=== PATIENT | female | born 1945 | race Caucasian/White ===

== ENCOUNTER 2021-10-24 07:12 | Day surgery (SDC) | payer OTHER ==
[~2021-10-24] VITALS: Ht 165.1 cm; Wt 83.5 kg
[~2021-10-24 07:12] MED LIST: AMLO-483 PO; ASPI1TAB20 PO; CLOP75TA28 PO; DIAZ2TAB PO; DONE5TAB80 PO; FEXO-42 PO; FURO1TAB31 PO; GABA300C10 PO; LATA0.0019 EACHEYE; LEVO50TA7 PO; LEVO75TA6 PO; METO25TA93 PO; MULT1TAB28 PO; NIAC500T71 PO; OMEG100078 PO; PANT40T PO; POT20T PO; ROSU1TAB14 PO
[2021-10-24] MEDS ORDERED: diphenhdrAMINE HCL 50 MG/1 ML VL IV ONE (08:15)
[2021-10-24] MEDS ORDERED: LIDOCAINE VISCOUS 2% 15ML UD MT ONE (08:15)
[2021-10-24] MEDS ORDERED: MIDAZOLAM HCL 2MG/2ML 2ml VIAL (1mg/ml) IV ONE (08:15)
[2021-10-24] MEDS ORDERED: fentaNYL CITRATE 100 MCG/2 ML VL IV ONE (08:15)
[2021-10-24] MEDS ORDERED: MIDAZOLAM HCL 2MG/2ML 2ml VIAL (1mg/ml) ONE (08:32)
[2021-10-24] MEDS ORDERED: LIDOCAINE VISCOUS 2% 15ML UD ONE (08:32)
[2021-10-24] MEDS ORDERED: fentaNYL CITRATE 100 MCG/2 ML VL ONE (08:32)
[2021-10-24] MEDS ORDERED: hydrALAZINE HCL 20 MG/ML VL IV ONE (09:00)
[2021-10-24] MEDS ORDERED: ACETAMINOPHEN 500 MG TAB PO PRN (09:15)
[2021-10-24 09:42] VITALS: BP 212/87
== END 2021-10-24 10:50 | disposition home or self-care (01) ==
LOC: CATH 07:12
PROVIDERS: ATTEND Internal Medicine
DX: I08.3 Combined rheumatic disorders of mitral, aortic and tricuspid valves (principal); I25.10 Atherosclerotic heart disease of native coronary artery without angina pectoris; N18.9 Chronic kidney disease, unspecified; I73.9 Peripheral vascular disease, unspecified; F03.90 Unspecified dementia, unspecified severity, without behavioral disturbance, psychotic disturbance, mood disturbance, and anxiety; I50.9 Heart failure, unspecified; J44.9 Chronic obstructive pulmonary disease, unspecified; F41.9 Anxiety disorder, unspecified; F32.A Depression, unspecified; G47.30 Sleep apnea, unspecified; Z82.49 Family history of ischemic heart disease and other diseases of the circulatory system; Z87.891 Personal history of nicotine dependence; Z80.8 Family history of malignant neoplasm of other organs or systems; Z20.822 Contact with and (suspected) exposure to COVID-19
CPT/HCPCS: 93312; J0360; J2250; J3010; U0003; 99152

== ENCOUNTER 2021-10-27 11:16 | Day surgery (SDC) | payer OTHER ==
[2021-10-27] VITALS (9 sets, daily range): BP systolic 86–143; BP diastolic 39–99
[2021-10-27] MEDS ORDERED: VERAPAMIL 2.5MG/ML INJ 2ML VIAL IV ONE (13:22)
[2021-10-27] MEDS ORDERED: fentaNYL CITRATE 100 MCG/2 ML VL ONE (13:22)
[2021-10-27] MEDS ORDERED: ANGIOMAX 250 MG VIAL IV ONE (13:22)
[2021-10-27] MEDS ORDERED: HEPARIN SODIUM (PORCINE) 5000 UNITS/ML 1ML VIAL ONE (13:22)
[2021-10-27] MEDS ORDERED: IODIXANOL 320MG/ML 100ML BTL IV ONE (13:23)
[2021-10-27] MEDS ORDERED: LIDOCAINE 2%HCL (LOCAL ANESTH.) INJ 20ML MDV ONE (13:23)
[2021-10-27] MEDS ORDERED: MIDAZOLAM HCL 2MG/2ML 2ml VIAL (1mg/ml) ONE (13:23)
[2021-10-27] MEDS ORDERED: SODIUM CHL 0.9% 0 ML ONE (13:23)
[2021-10-27] MEDS ORDERED: hydrALAZINE HCL 20 MG/ML VL ONE (13:50)
[2021-10-27] MEDS ORDERED: HYDROmorphone HCL 2 MG/ML VL/or syr ONE (14:05)
[2021-10-27] MEDS ORDERED: HYDROmorphone HCL 2 MG/ML VL/or syr IV ONE (14:15)
[2021-10-27] MEDS ORDERED: diphenhdrAMINE HCL 50 MG/1 ML VL ONE (14:30)
[2021-10-27] MEDS ORDERED: diphenhdrAMINE HCL 50 MG/1 ML VL IV ONE (14:36)
== END 2021-10-27 16:23 | disposition home or self-care (01) ==
LOC: CATH 11:16
PROVIDERS: ATTEND Internal Medicine
DX: R94.39 Abnormal result of other cardiovascular function study (principal); I25.118 Atherosclerotic heart disease of native coronary artery with other forms of angina pectoris; I35.0 Nonrheumatic aortic (valve) stenosis; I11.0 Hypertensive heart disease with heart failure; I50.9 Heart failure, unspecified; E78.5 Hyperlipidemia, unspecified; J44.9 Chronic obstructive pulmonary disease, unspecified; F41.9 Anxiety disorder, unspecified; F32.A Depression, unspecified; Z82.49 Family history of ischemic heart disease and other diseases of the circulatory system; Z87.891 Personal history of nicotine dependence; Z95.5 Presence of coronary angioplasty implant and graft; Z20.822 Contact with and (suspected) exposure to COVID-19
CPT/HCPCS: 93455; C1769; C1894; J0360; J1170; J1200; J1644; J2250; J3010; Q9967; 93458

== ENCOUNTER 2022-02-05 14:38 | Emergency (ER) | payer OTHER ==
[~2022-02-05] VITALS: Ht 167.6 cm; Wt 63.6 kg
[2022-02-05] MEDS ORDERED: SODIUM CHLORIDE 0.9% 1,000 ML IVB ONE (15:15)
[2022-02-05 16:04] LABS: Basophils # (auto) 0 10 ^3/uL (0-0.2); Basophils % (auto) 0.3 % (0.0-2.0); Eosinophils # (auto) 0 10 ^3/uL (0-0.8); Eosinophils % (auto) 0.4 % (0.0-7.0)
[2022-02-05 16:11] LABS: Hematocrit 40.7 % (36.0-46.0); Hemoglobin 14.1 g/dL (12.2-16.2); Lymphocytes # (auto) 0.9 10 ^3/uL (0.4-5.4); Lymphocytes % (auto) 8.6 % (10.0-50.0); Mean Corpuscular Hemoglobin 32.3 pg (28.0-32.0); Mean Corpuscular Hgb Conc. 34.7 g/dL (32.0-36.0); Mean Corpuscular Volume 93.1 fL (80.0-100.0); Monocytes % (auto) 9.3 % (0.0-12.0); Neutrophils # (auto) 8.6 10 ^3/uL (1.6-8.6); Neutrophils % (auto) 81.4 % (37.0-80.0); Nucleated Red Blood Cells % 0.1 %; Red Blood Cells 4.38 10^6/uL (4.0-5.20); White Blood Cell 10.6 10^3/uL (4.4-10.8)
[2022-02-05 16:34] LABS: Albumin 3.2 g/dL (3.4-5.0); BUN/Creatinine Ratio 15.9; Calcium 9.3 mg/dL (8.5-10.1); Magnesium 1.9 mg/dL (1.6-2.6); Potassium 4.2 mmol/L (3.5-5.1)
[2022-02-05 16:36] LABS: Bilirubin, Total 0.7 mg/dL (0.2-1.0); Total Protein 6.8 g/dL (6.4-8.2)
[2022-02-05] MEDS ORDERED: metroNIDAZOLE 500MG/100ML 100 ML IV ONE (17:45)
[2022-02-05] MEDS ORDERED: BISM262C44 PO (17:54)
[2022-02-05] MEDS ORDERED: METR500T PO (17:54)
[2022-02-05 19:11] VITALS: BP 141/64
== END 2022-02-05 19:12 | disposition home or self-care (01) ==
LOC: EDBD 14:38 → ER 14:40
DX: K52.9 Noninfective gastroenteritis and colitis, unspecified (principal); K57.90 Diverticulosis of intestine, part unspecified, without perforation or abscess without bleeding; K42.9 Umbilical hernia without obstruction or gangrene; E11.22 Type 2 diabetes mellitus with diabetic chronic kidney disease; I13.0 Hypertensive heart and chronic kidney disease with heart failure and stage 1 through stage 4 chronic kidney disease, or unspecified chronic kidney disease; N18.9 Chronic kidney disease, unspecified; I50.89 Other heart failure; J44.9 Chronic obstructive pulmonary disease, unspecified; E78.5 Hyperlipidemia, unspecified; Z90.49 Acquired absence of other specified parts of digestive tract; Z87.891 Personal history of nicotine dependence
CPT/HCPCS: 36415; 71045; 74176; 80053; 83690; 83735; 85025; 93005; 96361; 96365; 99285; J3490; J7030

== ENCOUNTER 2022-03-15 08:54 | Inpatient (IN) | payer OTHER ==
[~2022-03-15] VITALS: Ht 167.6 cm; Wt 84.1 kg
[~2022-03-15 08:54] MED LIST changes: +BISM262C44 PO; +METR500T PO
[2022-03-15] MEDS ORDERED: SODIUM CHLORIDE 0.9% 1,000 ML IV ONE (09:30)
[2022-03-15 09:58] LABS: Basophils # (auto) 0.1 10 ^3/uL (0-0.2); Basophils % (auto) 1.3 % (0.0-2.0); Eosinophils # (auto) 0.2 10 ^3/uL (0-0.8); Eosinophils % (auto) 5.7 % (0.0-7.0); Hematocrit 40.3 % (36.0-46.0); Hemoglobin 13.3 g/dL (12.2-16.2); Lymphocytes # (auto) 1.4 10 ^3/uL (0.4-5.4); Lymphocytes % (auto) 31.5 % (10.0-50.0); Mean Corpuscular Hemoglobin 32.1 pg (28.0-32.0); Mean Corpuscular Volume 97.3 fL (80.0-100.0); Monocytes # (auto) 0.4 10 ^3/uL (0-1.3); Monocytes % (auto) 8.4 % (0.0-12.0); Neutrophils # (auto) 2.3 10 ^3/uL (1.6-8.6); Neutrophils % (auto) 53.1 % (37.0-80.0); Nucleated Red Blood Cells % 0.1 %; Red Blood Cells 4.14 10^6/uL (4.0-5.20); Red Cell Distribution Width 15.8 % (11.8-14.3); White Blood Cell 4.4 10^3/uL (4.4-10.8)
[2022-03-15 10:06] LABS: Albumin 3.3 g/dL (3.4-5.0); Calcium 9.5 mg/dL (8.5-10.1); Magnesium 1.9 mg/dL (1.6-2.6); Potassium 3.6 mmol/L (3.5-5.1)
[2022-03-15 10:09] LABS: BUN/Creatinine Ratio 11.2; Bilirubin, Total 0.7 mg/dL (0.2-1.0); INR 0.94 (0.9-1.15); Partial Thromboplastin Time 23.1 sec (24.6-33.4); Total Protein 7.2 g/dL (6.4-8.2)
[2022-03-16 02:05] LABS: BUN/Creatinine Ratio 12.7; Calcium 9.1 mg/dL (8.5-10.1)
[2022-03-16] MEDS ORDERED: HYDROcodone-ACET 5/325MG TAB PO ONE (02:15)
[2022-03-16] MEDS ORDERED: IOHEXOL 350 MG/ML 100ML IJ ONE (02:43)
[2022-03-16] MEDS ORDERED: NITROGLYCERIN 0.4 MG SL TAB SL PRN (03:45)
[2022-03-16] MEDS ORDERED: TEMAZEPAM 15 MG CAP PO PRN (03:45)
[2022-03-16] MEDS ORDERED: ONDANSETRON HCL 4 MG/2 ML VIAL IV PRN (03:45)
[2022-03-16] MEDS ORDERED: DEXTROSE (50%) 50ML SYRG IV PRN (03:45)
[2022-03-16] MEDS ORDERED: MORPHINE SULFATE INJ 2 MG/ml SYRG IV PRN (03:45)
[2022-03-16] MEDS: InsuLIN REG 1unit/0.01ml Soln (100units/ml) SC SCH ×4 (06:47→22:00)
[2022-03-16] MEDS: ACCU-CHEK COMFORT CURVE STRIP VI SCH ×4 (06:47→23:19)
[2022-03-16] MEDS: LEVOTHYROXINE SODIUM 25 MCG TAB PO SCH (06:51)
[2022-03-16] MEDS: ACETAMINOPHEN 325 MG TAB PO PRN ×2 (08:36→14:30)
[2022-03-16] MEDS ORDERED: METOPROLOL SUCCINATE XL 50 MG TAB PO SCH ×2 (10:00→12:15)
[2022-03-16] MEDS ORDERED: amLODIPine BESYLATE 5 MG TAB PO SCH (10:00)
[2022-03-16 10:22] VITALS: BP 146/42
[2022-03-16] MEDS: ASPirin 81 mg TAB PO SCH (10:51)
[2022-03-16] MEDS: FUROSEMIDE 40 MG TAB PO SCH (10:51)
[2022-03-16] MEDS: PANTOPRAZOLE 40 MG TAB PO SCH (10:52)
[2022-03-16] MEDS: CLOPIDOGREL BISULFATE 75 MG TAB PO SCH (10:52)
[2022-03-16] MEDS: ENOXAPARIN SOD 40 MG/0.4 ML SYRINGE SC SCH (10:53)
[2022-03-16] MEDS ORDERED: HYDROcodone-ACET 5/325MG TAB PO PRN (12:45)
[2022-03-16 12:54] VITALS: BP 146/42
[2022-03-16 13:55] LABS: Basophils # (auto) 0 10 ^3/uL (0-0.2); Basophils % (auto) 1.1 % (0.0-2.0); Eosinophils # (auto) 0.3 10 ^3/uL (0-0.8); Eosinophils % (auto) 5.6 % (0.0-7.0); Hematocrit 39.2 % (36.0-46.0); Lymphocytes # (auto) 1.2 10 ^3/uL (0.4-5.4); Lymphocytes % (auto) 26.6 % (10.0-50.0); Mean Corpuscular Hemoglobin 32.6 pg (28.0-32.0); Mean Corpuscular Hgb Conc. 33.1 g/dL (32.0-36.0); Mean Corpuscular Volume 98.4 fL (80.0-100.0); Monocytes # (auto) 0.4 10 ^3/uL (0-1.3); Neutrophils # (auto) 2.7 10 ^3/uL (1.6-8.6); Neutrophils % (auto) 57.7 % (37.0-80.0); Nucleated Red Blood Cells % 0.1 %; Red Blood Cells 3.99 10^6/uL (4.0-5.20); Red Cell Distribution Width 16.4 % (11.8-14.3); White Blood Cell 4.6 10^3/uL (4.4-10.8)
[2022-03-16] MEDS ORDERED: GLUC1CAP13 PO (15:13)
[2022-03-16] MEDS ORDERED: CILO100T PO (15:13)
[2022-03-16] MEDS ORDERED: CYA100I PO (15:13)
[2022-03-16] MEDS ORDERED: DICY20TA PO (15:13)
[2022-03-16] MEDS ORDERED: POLY33504 PO (15:13)
[2022-03-16] MEDS ORDERED: OMEG100062 PO (15:13)
[2022-03-16] MEDS ORDERED: FAMO-12 PO (15:13)
[2022-03-16] MEDS ORDERED: METR500T PO (15:13)
[2022-03-16] MEDS ORDERED: BIOT50007 PO (15:13)
[2022-03-16 16:00] VITALS: BP 159/42
[2022-03-16] MEDS: amLODIPine BESYLATE 5 MG TAB PO SCH (17:29)
[2022-03-16 17:55] LABS: Urine Bacteria NONE SEEN /hpf (None Seen); Urine Blood Negative /uL (Negative); Urine Specific Gravity 1.006 (1.001-1.035); Urine WBC <1 /hpf (0 - 5)
[2022-03-16 22:00] VITALS: BP 132/75
[2022-03-16] MEDS ORDERED: DONEPEZIL HYDROCHLORIDE 5 MG TAB PO SCH (22:00)
[2022-03-16] MEDS ORDERED: ATORVASTATIN 20 MG TAB PO SCH (22:00)
[2022-03-17] MEDS ORDERED: diphenhdrAMINE HCL 25 MG CAP PO ONE ×2 (02:00→11:30)
[2022-03-17 05:00] VITALS: BP 148/43
[2022-03-17] MEDS: LEVOTHYROXINE SODIUM 25 MCG TAB PO SCH (06:50)
[2022-03-17] MEDS: ACCU-CHEK COMFORT CURVE STRIP VI SCH ×3 (06:50→17:06)
[2022-03-17] MEDS: InsuLIN REG 1unit/0.01ml Soln (100units/ml) SC SCH ×3 (06:54→17:00)
[2022-03-17 06:58] LABS: Basophils # (auto) 0 10 ^3/uL (0-0.2); Basophils % (auto) 1.1 % (0.0-2.0); Eosinophils # (auto) 0.2 10 ^3/uL (0-0.8); Eosinophils % (auto) 5.1 % (0.0-7.0); Hematocrit 37.3 % (36.0-46.0); Hemoglobin 12.4 g/dL (12.2-16.2); Lymphocytes # (auto) 1.3 10 ^3/uL (0.4-5.4); Lymphocytes % (auto) 27.9 % (10.0-50.0); Mean Corpuscular Hemoglobin 32.4 pg (28.0-32.0); Mean Corpuscular Hgb Conc. 33.2 g/dL (32.0-36.0); Mean Corpuscular Volume 97.5 fL (80.0-100.0); Monocytes # (auto) 0.5 10 ^3/uL (0-1.3); Monocytes % (auto) 10.4 % (0.0-12.0); Neutrophils # (auto) 2.5 10 ^3/uL (1.6-8.6); Neutrophils % (auto) 55.5 % (37.0-80.0); Nucleated Red Blood Cells % 0.2 %; Red Blood Cells 3.82 10^6/uL (4.0-5.20); Red Cell Distribution Width 15.7 % (11.8-14.3); White Blood Cell 4.5 10^3/uL (4.4-10.8)
[2022-03-17 07:19] LABS: Anion Gap 7 (5-15); BUN/Creatinine Ratio 18.2; Blood Urea Nitrogen 16 mg/dL (7-18); Calcium 9.2 mg/dL (8.5-10.1); Carbon Dioxide 27 mmol/L (21-32); Chloride 109 mmol/L (98-107); GFR African American 81 mL/min; GFR Non-African American 67 mL/min; Glucose 100 mg/dL (74-106); Potassium 3.9 mmol/L (3.5-5.1); Sodium 143 mmol/L (136-145)
[2022-03-17 08:47] VITALS: BP 156/43
[2022-03-17] MEDS: ASPirin 81 mg TAB PO SCH (09:25)
[2022-03-17] MEDS: FUROSEMIDE 40 MG TAB PO SCH (09:25)
[2022-03-17] MEDS: CLOPIDOGREL BISULFATE 75 MG TAB PO SCH (09:25)
[2022-03-17] MEDS: PANTOPRAZOLE 40 MG TAB PO SCH (09:25)
[2022-03-17] MEDS: ENOXAPARIN SOD 40 MG/0.4 ML SYRINGE SC SCH (09:25)
[2022-03-17] MEDS: amLODIPine BESYLATE 5 MG TAB PO SCH (09:26)
[2022-03-17] MEDS ORDERED: GABAPENTIN 300 MG CAP PO ONE (11:30)
[2022-03-17 11:50] VITALS: BP 130/28
[2022-03-17 12:15] VITALS: BP 153/51
[2022-03-17 16:49] VITALS: BP 130/40
[2022-03-17] MEDS ORDERED: AML5T PO (17:26)
[2022-03-18] MEDS ORDERED: GABAPENTIN 300 MG CAP PO SCH (22:00)
== END 2022-03-17 19:20 | disposition home or self-care (01) | DRG 280 ==
LOC: ER 08:54 → EDBD 08:54 → TELE 03-16 03:51 → TELE-WESTW 03-16 10:19
PROVIDERS: ADMIT Nurse Practitioner; ATTEND Internal Medicine
DX: I21.4 Non-ST elevation (NSTEMI) myocardial infarction (principal); I50.33 Acute on chronic diastolic (congestive) heart failure; I13.0 Hypertensive heart and chronic kidney disease with heart failure and stage 1 through stage 4 chronic kidney disease, or unspecified chronic kidney disease; I25.110 Atherosclerotic heart disease of native coronary artery with unstable angina pectoris; E03.9 Hypothyroidism, unspecified; J44.9 Chronic obstructive pulmonary disease, unspecified; Z20.822 Contact with and (suspected) exposure to COVID-19; E11.22 Type 2 diabetes mellitus with diabetic chronic kidney disease; E66.9 Obesity, unspecified; E78.5 Hyperlipidemia, unspecified; Z82.49 Family history of ischemic heart disease and other diseases of the circulatory system; Z90.49 Acquired absence of other specified parts of digestive tract; Z68.29 Body mass index [BMI] 29.0-29.9, adult; Z87.891 Personal history of nicotine dependence; Z95.1 Presence of aortocoronary bypass graft; Z95.2 Presence of prosthetic heart valve; N18.31 Chronic kidney disease, stage 3a
CPT/HCPCS: 36415; 71046; 71275; 80048; 80053; 81001; 82962; 83735; 83880; 84443; 84484; 85025; 85379; 85610; 85730; 87426; 93005; 93306; 96360; G0378; J1815

== ENCOUNTER 2024-03-22 16:53 | Inpatient (IN) | payer OTHER ==
[~2024-03-22] VITALS: Ht 167.6 cm; Wt 78.2 kg
[~2024-03-22 16:53] MED LIST changes: +AML5T PO; -AMLO-483 PO; -BISM262C44 PO; -DIAZ2TAB PO; +GABA-1250 PO; -GABA300C10 PO; +GLUC1CAP13 PO; -LATA0.0019 EACHEYE; +LATA0.008 EACHEYE; -LEVO50TA7 PO; -METO25TA93 PO; -METR500T PO; +OMEG100062 PO; -OMEG100078 PO; +POLY33504 PO; -ROSU1TAB14 PO; +ROSU20TA56 PO
--- NOTE | 2024-03-22 17:21 | ED.PDOC ---
History of Present Illness HPI Comments 78F BIBA w/ prior Hx of Anemia, CHF, CAD, HTN, CABG and an Aortic Valve Replacement Sx which all may be associated to the c/c of a syncopal Episode. EMS report that the pt has had a total of 3 previous syncopal episodes in her life with the recent being 1 month ago. EMS state that the syncopal episode was wi tnessed by the daughter and that the daughter stated that the pt did not have a Sz. EMS note that the Prt BS on scene was 137. Pt states that all she remember is blacking out and hitting her right hip, right elbow and the right side of the head. When pt arrived the the ED she started mentioning of having Chest pressure. Pt is followed up by Ramses Roe for Carotid Aneurism. PMHx of COPD, DM, High Lipids, Thyroid and Glaucoma. SHx of Appendectomy and Cholecystectomy. Denies chills, fever, N/V/D, SOB, or other associated symptom's, modifiers, or recent injuries or sick contact at this time. Chief Complaint: Fall Injury Time Seen by MD: 16:55 Primary Care Provider: UNKNOWN Reviewed Notes: Nurses Notes, Stock Manager Notes, Medications, Allergies Allergies: Coded Allergies: NO KNOWN ALLERGIES (Unverified , 06/27/15) Home Meds Active Scripts Amlodipine Besylate (NORVASC TABLET) 5 Mg Tb, 5 MG PO DAILY, #30 TAB Prov:ANNA CASILLAS MD 03/17/22 Reported Medications Glucosamine Sulfate (Glucosamine) 1,000 Mg Cap, 1000 MG PO DAILY 03/16/22 [place]-3 Fatty Acids (Fish Oil) 1,000 Mg Cap, 1000 MG PO 03/16/22 Polyethylene Glycol (MIRALAX 17GM PWD) 17 Gm Pw, 17 GRAMS PO DAILY 03/16/22 Multiple Vitamins W/ Minerals (Centrum Adults) 1 Tab Tab, 1 TAB PO DAILY for SUPPLEMENT, TAB 10/21/21 Fexofenadine Hydrochloride (VIRAJ ALLERGY) 180 Mg Tab, 1 TAB PO DAILY for ALLERGIES, #30 TAB 2 Refills 10/21/21 Gabapentin (Gabapentin) 300 Mg Cap, 1 CAP PO HS for NEUROPATHY, #90 CAP 5 Refills 10/21/21 Levothyroxine Sodium (Levothyroxine Sodium) 75 Mcg Tab, 1 TAB PO DAILY for LOW THYROID, #30 TAB 5 Refills 10/21/21 Niacinamide (NIACIN) 500 Mg Tab, 500 MG PO DAILY for SUPPLEMENT, TAB 10/21/21 Donepezil Hydrochloride (DONEPEZIL HCL) 5 Mg Tab, 1 TAB PO DAILY for COGNITIVE IMPAIRMENT, #30 TAB 5 Refills 10/21/21 Furosemide (Lasix) 40 Mg Tab, 40 MG PO DAILY for EDEMA, TAB 10/21/21 Pantoprazole Sodium Sesquihydr (Pantoprazole Sodium) 40 Mg Tab, 40 MG PO DAILY for GERD, TAB 10/21/21 Rosuvastatin Calcium (Rosuvastatin Calcium) 20 Mg Tab, 20 MG PO HS for HIGH CHOLESTEROL, TAB 10/21/21 Clopidogrel Bisulfate (Plavix) 75 Mg Tab, 1 TAB PO DAILY for UNSTABLE ANGINA, #90 TAB 1 Refill 10/21/21 Aspirin (Aspir-81) 81 Mg Tab, 1 TAB PO DAILY, #30 TAB 5 Refills 07/13/15 Potassium Chloride (KLOR-CON TABLET) 20 Meq Tb, 1 TAB PO DAILY for replacement therapy , #90 TAB 1 Refill 06/28/15 Latanoprost (LATANOPROST) 0.005 % Billie, 1 DROP EACHEYE QPM for glaucoma, #7.5 ML 3 Refills 06/28/15 Information Source: Patient, Emergency Med Personnel Mode of Arrival: EMS Severity: Moderate Timing: Minutes Duration: Since onset, Minutes Prehospital treatment: None Past Medical History PAST MEDICAL HISTORY: Anemia, CAD, CHF, COPD, DM, High Lipids, HTN, Thyroid Past Medical History (Other): glaucoma Surgical History: Appendectomy, CABG, Cholecystectomy Surgical History (Other): Aortic Valve Replacement Sx ASSISTANT SIGNAL MAINTAINER History: No Pertinent ASSISTANT SIGNAL MAINTAINER History Family History Family History: Reviewed,noncontributory to illness, Unknown Social History Smoker: Quit Greater Than 1 Year Alcohol: Rarely Drugs: Denies Drug Use Lives In: Home Constitutional: denies: chills, diaphoresis, fatigue, fever, malaise, sweats, weakness, others EENTM: denies: blurred vision, double vision, ear bleeding, ear discharge, ear drainage, ear pain, ear ringing, eye pain, eye redness, hearing loss, mouth pain, mouth swelling, nasal discharge, nose bleeding, nose congestion, nose pain, photophobia, tearing, throat pain, throat swelling, voice changes, others Respiratory: denies: cough, hemoptysis, orthopnea, SOB at rest, shortness of breath, SOB with excertion, stridor, wheezing, others Cardiovascular: reports: chest pain, syncope; denies: dizzy spells, diaphoresis, Dyspnea on exertion, edema, irregular heart beat, left arm pain, lightheadedness, palpitations, PND, others Gastrointestinal: denies: abdomen distended, abdominal pain, blood streaked bowels, constipated, diarrhea, dysphagia, difficulty swallowing, hematemesis, melena, nausea, poor appetite, poor fluid intake, rectal bleeding, rectal pain, vomiting, others Genitourinary: denies: abnormal vagina bleeding, burning, dyspareunia, dysuria, flank pain, frequency, hematuria, incontinence, pain, , vagina discharge, urgency, others Neurological: denies: dizziness, fainting, headache, left sided numbness, left sided weakness, numbness, paresthesia, pre-existing deficit, right sided numbness, right sided weakness, seizure, speech problems, tingling, tremors, weakness, others Musculoskeletal: denies: back pain, gout, joint pain, joint swelling, muscle pain, muscle stiffness, neck pain, others Integumetry: denies: bruises, change in color, change in hair/nails, dryness, laceration, lesions, lumps, rash, wounds, others Allergic/Immunocompromised: denies: Difficulty Healing, Frequent Infections, Hives, Itching, others Hematologic/Lymphatic: denies: anemia, blood clots, easy bleeding, easy bruising, swollen glands, others Endocrine: denies: excessive hunger, excessive sweating, excessive thirst, excessive urination, flushing, intolerance to cold, intolerance to heat, unexplained weight gain, unexplained weight loss, others Psychiatric: denies: anxiety, bipolar disorder, depression, hopeless, panic disorder, schizophrenia, sleepless, suicidal, others All Other Systems: Reviewed and Negative Physical Exam Exam Comments Right elbow w/ skin abrasion which is minimal General Appearance: No Apparent Distress, Normal HEENT: Normal ENT Inspection, Pharynx Normal, TMs Normal Neck: Full Range of Motion, Non-Tender, Normal, Normal Inspection Respiratory: Chest Non-Tender, Lungs Clear, No Accessory Muscle Use, No Respiratory Distress, Normal Breath Sounds Cardiovascular: No Edema, No JVD, No Murmur, No Gallop, Normal Peripheral Pulses, Regular Rate/Rhythm Breast Exam: Deferred Gastrointestinal: No Organomegaly, Non Tender, No Pulsatile Mass, Normal Bowel Sounds, Soft Genitalia: Deferred Pelvic: Deferred Rectal: Deferred Extremities: No calf tenderness, Normal capillary refill, Normal inspection, Normal range of motion, Non-tender, No pedal edema Musculoskeletal : Apperance: Normal Neurologic: Alert, manager hospice II-XII nml as Tested, No Motor Deficits, Normal Affect, Normal Mood, No Sensory Deficits Cerebellar Function: Normal Reflexes: Normal Skin: Dry, Normal Color, Warm Lymphatic: No Adenopathy Was a procedure done? Was a procedure done?: No Differential Dx Considerations may include: hypotension, hypoglycemia, traore-toney syncope, acs, tia, cva, arrhythmias, electrolyte disorders X-Ray, Labs, Meds, VS Vital Signs Date Time Temp Pulse Resp B/P (MAP) Pulse Ox O2 Delivery O2 Flow Rate FiO2 03/22/24 17:40 97.4 98 16 191/52 (98) 94 97.4 03/22/24 17:24 98 16 94 Room Air* 0 21 03/22/24 17:13 98.0 63 20 181/57 (98) 96 Lab Test 03/22/24 17:16 Range/Units White Blood Count 7.3 4.4-10.8 10^3/uL Red Blood Count 4.15 4.0-5.20 10^6/uL Hemoglobin 14.1 12.2-16.2 g/dL Hematocrit 41.8 36.0-46.0 % Mean Corpuscular Volume 100.7 H 80.0-100.0 fL Mean Corpuscular Hemoglobin 34.0 H 28.0-32.0 pg Mean Corpuscular Hemoglobin Concent 33.8 32.0-36.0 g/dL Red Cell Distribution Width 12.3 11.8-14.3 % Platelet Count 141 140-450 10^3/uL Mean Platelet Volume 8.1 6.9-10.8 fL Neutrophils (%) (Auto) 63.9 37.0-80.0 % Lymphocytes (%) (Auto) 26.4 10.0-50.0 % Monocytes (%) (Auto) 7.1 0.0-12.0 % Eosinophils (%) (Auto) 2.0 0.0-7.0 % Basophils (%) (Auto) 0.6 0.0-2.0 % Neutrophils # (Auto) 4.7 1.6-8.6 10 ^3/uL Lymphocytes # (Auto) 1.9 0.4-5.4 10 ^3/uL Monocytes # (Auto) 0.5 0-1.3 10 ^3/uL Eosinophils # (Auto) 0.2 0-0.8 10 ^3/uL Basophils # (Auto) 0 0-0.2 10 ^3/uL Nucleated Red Blood Cells 0.1 % Sodium Level 144 136-145 mmol/L Potassium Level 4.2 3.5-5.1 mmol/L Chloride Level 109 H 98-107 mmol/L Carbon Dioxide Level 25 20-31 mmol/L Anion Gap 10 5-15 Blood Urea Nitrogen 23 9-23 mg/dL Creatinine 1.14 H 0.550-1.02 mg/dL Glomerular Filtration Rate Calc 50 >90 mL/min BUN/Creatinine Ratio 20.2 H 10.0-20.0 Serum Glucose 160 H 74-106 mg/dL Calcium Level 10.5 H 8.7-10.4 mg/dL Troponin I High Sensitivity 36 *H </=34 ng/L Time of 1ST Reevaluation: 17:25 Reevaluation 1ST: Unchanged Time of 2ND Reevaluation: 18:20 Reevaluation 2ND: Resolved Patient Education/Counseling: Diagnosis, Treatment, Prognosis, Need For Follow Up Family Education/Counseling: No Family Present Additional Information - I reviewed the following notes from patient's past medical encounters:03/15/22 - The following tests were ordered, and results were reviewed by me: Labs, X- Ray, EKG CT - Additional information was gathered from interviewing the following in dependent Historian: EMT - I reviewed and agreed with the following test results read by other provider: X-ray, CT - I discussed treatments and results with medical personnel and: (consultants) pt suffered contusions from the syncope. her troponin is elevated. she has a history of UT. pt will be admitted for possible cardiogenic syncope Departure 1 Departure Time of Disposition: 18:21 Impression: Primary Impression: Syncope Qualified Codes: I45.9 - Conduction disorder, unspecified Additional Impressions: Contusion of hip, right Qualified Codes: S70.01XA - Contusion of right hip, initial encounter Abrasion of elbow, right Qualified Codes: S50.311A - Abrasion of right elbow, initial encounter Closed head injury Qualified Codes: S09.90XA - Unspecified injury of head, initial encounter Disposition: ADMITTED INPATIENT Condition: Serious Discharged With: Self Critical Care Note Critical Care Time?: Yes (55 min-critical care time only) Critical care comment: due to concerns for deterioration of patient's condition, the care required my highest level of attention and readiness. i assessed the patient's condition, revieweed relavent documents, communicated with medical personnel, ordered the proper tests and treatments, reassed fro results and response to treatments, spoke to family and consultants and formulated a plan of care Stability Stability form required: No Heart Score Heart Score: Heart Score Response (Comments) Value History Highly Suspicious 2 EKG Repolarization Disturb 1 Age >65 2 Risk Factors >3 or Hx ASHD 2 Troponin 1-2 x's Normal limit 1 Total 8 I personally scribed for ISRRAEL CAMPOS MD ([email or web address]) on 03/22/24 at 17:21. Electronically submitted by Jarrod Koehler ([email or web address]). ISRRAEL CAMPOS MD Mar 22, 2024 17:21
[2024-03-22 17:24] VITALS: PULSE 98; RESP 16; O2SAT 94
[2024-03-22 17:52] LABS: Basophils # (auto) 0 10 ^3/uL (0-0.2); Basophils % (auto) 0.6 % (0.0-2.0); Eosinophils # (auto) 0.2 10 ^3/uL (0-0.8); Hematocrit 41.8 % (36.0-46.0); Hemoglobin 14.1 g/dL (12.2-16.2); Lymphocytes # (auto) 1.9 10 ^3/uL (0.4-5.4); Lymphocytes % (auto) 26.4 % (10.0-50.0); Mean Corpuscular Hgb Conc. 33.8 g/dL (32.0-36.0); Mean Corpuscular Volume 100.7 fL (80.0-100.0); Monocytes # (auto) 0.5 10 ^3/uL (0-1.3); Monocytes % (auto) 7.1 % (0.0-12.0); Neutrophils # (auto) 4.7 10 ^3/uL (1.6-8.6); Neutrophils % (auto) 63.9 % (37.0-80.0); Nucleated Red Blood Cells % 0.1 %; Platelet Count (auto) 141 10^3/uL (140-450); Red Blood Cells 4.15 10^6/uL (4.0-5.20); Red Cell Distribution Width 12.3 % (11.8-14.3); White Blood Cell 7.3 10^3/uL (4.4-10.8)
--- NOTE | 2024-03-22 17:54 | DVH ---
EXAM: CT HEAD WITHOUT CONTRAST INDICATION: syncope TECHNIQUE: CT of the head without intravenous contrast. Radiation Dose Information: CT Dose: CTDI volume is 54.18 mGy. Dose-length product is 868.52 mGy*cm The dose indicators for CT are the volume Computed Tomography (CT) Dose Index (CTDIvol) and the Dose Length Product (DLP), and are measured in units of mGy and mGy-cm, respectively. These indicators are not patient dose, but values generated from the CT scanner acquisition factors. The report includes radiation exposure data for exposures received during this examination. COMPARISON: None FINDINGS: There is no evidence of acute intracranial hemorrhage, extra-axial collection, mass effect, midline s hift, herniation or hydrocephalus. The ventricles, sulci and cisterns are age appropriate. The ballard-white differentiation is intact. Patchy periventricular and subcortical white matter hypoattenuation is nonspecific but may be related to small vessel ischemic disease. The visualized paranasal sinuses and mastoid air cells are clear. The surrounding soft tissues and osseous structures are unremarkable. IMPRESSION: 1. No acute intracranial hemorrhage 2. No CT findings of territorial ischemia. .
[2024-03-22 17:57] LABS: Potassium 4.2 mmol/L (3.5-5.1); Sodium 144 mmol/L (136-145)
[2024-03-22 17:58] LABS: Anion Gap 10 (5-15); Carbon Dioxide 25 mmol/L (20-31)
[2024-03-22 18:02] LABS: Calcium 10.5 mg/dL (8.7-10.4); Chloride 109 mmol/L (98-107)
[2024-03-22 18:04] LABS: BUN/Creatinine Ratio 20.2 (10.0-20.0); Blood Urea Nitrogen 23 mg/dL (9-23); Glucose 160 mg/dL (74-106)
--- NOTE | 2024-03-22 18:36 | DVH ---
CLINICAL INDICATION: injury TECHNIQUE: 3 radiographic views of the right elbow were obtained. Comparison: None FINDINGS/IMPRESSION: There is no evidence of acute fracture or dislocation. The visualized joint space is well maintained. The alignment is anatomical. There is no radiopaque foreign body.
--- NOTE | 2024-03-22 18:36 | DVH ---
CHEST RADIOGRAPH Indication: syncope Technique: Single frontal view of the chest was obtained Comparison: CHEST XRAY 1 VIEW on DOS: 02/05/22, CXR1 on DOS: 02/05/22 FINDINGS: Lines and Tubes: None Lungs: No focal consolidation. Pleura: No effusion. No pneumothorax. Cardiomediastinal contours: Unremarkable. Midline sternotomy wires are noted. Valvular replacement i s noted. Moderate atherosclerotic calcification and uncoiling of the aorta. Bones: No acute osseous abnormality. IMPRESSION: No acute cardiopulmonary disease.
--- NOTE | 2024-03-22 18:38 | DVH ---
CLINICAL INDICATION: injury TECHNIQUE: 3 radiographic views of the right hip were obtained. Comparison: None FINDINGS/IMPRESSION: There is no evidence of acute fracture or dislocation. [id number] degenerative changes bilateral hips. Hypertrophic bony changes of the greater and l danielle trochanters bilaterally. Severe degenerative changes of the lumbosacral joint. Phleboliths are noted within the pelvis with injection granulomas overlying the right iliac bone. Moderate amount of fecal material within the visualized colon.
[2024-03-22 18:50] LABS: Urine Bacteria None Seen /hpf (None Seen)
[2024-03-22 19:08] LABS: Urine Blood 2+ /uL (Negative); Urine Clarity Clear (Clear); Urine Color Colorless (Yellow); Urine Protein, UAD 1+ (Negative); Urine Specific Gravity 1.008 (1.001-1.035); Urine Squamous Epithelial Cell FEW /hpf (<5); Urine Urobilinogen Normal (Negative); Urine WBC < 1 /HPF (0-5); Urine pH 6.5 (5.0-9.0)
[2024-03-22] MEDS: LABETALOL HCL 20 MG/4 ML VL IV ONE (20:42)
[2024-03-22 20:57] VITALS: PULSE 65; RESP 19; O2SAT 97
[2024-03-22] MEDS ORDERED: NITROGLYCERIN 0.4 MG SL TAB SL PRN (21:00)
[2024-03-22] MEDS ORDERED: DOCUSATE SOD 100 MG CAP PO PRN (21:00)
[2024-03-22] MEDS ORDERED: DICY-89 PO (21:56)
[2024-03-22] MEDS ORDERED: CILO100T3 PO (21:56)
[2024-03-22] MEDS ORDERED: LOSA-533 PO (21:56)
[2024-03-22] MEDS: ACETAMINOPHEN 325 MG TAB PO PRN (22:00)
[2024-03-23] MEDS: IOHEXOL 350 MG/ML 100ML IJ ONE (00:19)
[2024-03-23] MEDS: DONEPEZIL HYDROCHLORIDE 5 MG TAB PO SCH (00:25)
[2024-03-23] MEDS ORDERED: DEXTROSE (50%) 50ML SYRG IV PRN (01:15)
--- NOTE | 2024-03-23 01:56 | DVHHP2 ---
TALYA VENTURA BEDSPREAD CUTTER HAND 03/23/24 0156: History of Present Illness Reason for Visit: Syncope History of Present Illness 78-year-old female past medical history of CABG, CHF, hypertension, CAD, Carotid aneurysm, controlled DM Presents with the complaints of a witness syncopal episode. Patient also complains of pain to the right elbow And hip as a result of the fall. Also endorsed chest pressure. Patient states she blacked out and fell to the ground. Described as out of body experienced. Patient's daughter reported to the emergency department provider This is the third time this has occurred. Patient endorsed she Was previously diagnosed with a 9 mm carotid aneurysm And awaiting a follow up appointment With vascular. She was also recently diagnosed with the UTI and treated with oral antibiotics. At this time treatment is incomplete. While in the emergency department the patients found to be hypertensive with a blood pressure 206/58. Troponin Level 36/33/49. At this time patient has no complaints of dizziness, Unilateral deficits, headaches, Shortness of breath, Abdominal pain. Patient Is admitted for further evaluation and treatment Cardiovascular: CAD, CHF, HTN, syncope, hyperipidemia SCHEDULING CLERK: Dementia Endocrine: Diabetes Smoke: No ALCOHOL: none Drugs: None Lives: with Family Review of Systems Constitutional: No: Fever, Chills, Sweats, Weakness, Malaise, Other Eyes: No: Pain, Vision change, Conjunctivae inflammation, Eyelid inflammation, Other, Redness ENT: No: Ear pain, Ear discharge, Nose pain, Nose discharge, Nose congestion, Mouth pain, Mouth swelling, Throat pain, Throat swelling, Other Cardiovascular: Chest Pain, Other (Syncope); No: Palpitations, Orthopnea, Paroxysmal Noc. Dyspnea, Edema, Lt Headedness Gastrointestinal: No: Nausea, Vomiting, Abdominal Pain, Diarrhea, Constipation, Melena, Hematochezia, Other Genitourinary: No Dysuria, No Frequency, No Incontinence, No Hematuria, No Retention, No Other Musculoskeletal: No: other, neck pain, shoulder pain, arm pain, back pain, hand pain, leg pain, foot pain Skin: Bruising; No: Rash, Lesions, Jaundice, Other Neurological: No: Weakness, Numbness, Incoordination, Change in speech, Confusion, Seizures, Other Allergies: Coded Allergies: NO KNOWN ALLERGIES (Unverified , 06/27/15) Medications Current Medications Medications Dose Ordered Sig/Jorje Route Start Time Stop Time Status Last Admin Dose Admin Docusate Sodium 100 mg BIDPRN PRN PO 03/22/24 21:00 Acetaminophen 650 mg Q6HP PRN PO 03/22/24 21:00 03/22/24 22:00 650 MG Ondansetron HCl 4 mg Q4HP PRN IV 03/22/24 21:00 Enoxaparin Sodium 40 mg DAILY SC 03/23/24 10:00 Nitroglycerin 0.4 mg Q5MINP PRN SL 03/22/24 21:00 Morphine Sulfate 2 mg Q30M PRN IV 03/22/24 21:00 Hydralazine HCl 10 mg Q4HPRN PRN IV 03/22/24 21:00 Clonidine HCl 0.1 mg BID PRN PO 03/22/24 21:00 Aspirin 81 mg DAILY PO 03/23/24 10:00 Atorvastatin Calcium 40 mg DAILY PO 03/23/24 10:00 Donepezil HCl 5 mg HS PO 03/22/24 23:45 03/23/24 00:25 5 MG Carbidopa/Levodopa 1 tab TID PO 03/23/24 06:00 Diagnostic Test (Pha) 1 strip ACHS 03/23/24 07:00 Insulin Human Regular ACHS SC 03/23/24 07:00 Dextrose 50 ml UD PRN IV 03/23/24 01:15 Ceftriaxone Sodium 50 ml @ 100 mls/hr DAILY@09 IV 03/23/24 09:00 Exam Vital Signs Vital Signs Date Time Temp Pulse Resp B/P (MAP) Pulse Ox O2 Delivery O2 Flow Rate FiO2 03/23/24 00:00 73 03/23/24 00:00 15 165/49 (87) 93 03/22/24 20:57 Room Air* 0 21 03/22/24 20:00 98.2 98.2 General Appearance: Alert, Oriented X3, Cooperative, mild distress HEENT: Atraumatic, PERRLA, EOMI Respiratory: Clear to auscultation, Normal air movement Cardiovascular: Regular rate, Normal S1, Normal S2 Abdominal: Normal bowel sounds, Soft, No tenderness Extremities: Normal pulses, Other (Bruising to right elbow. ) Skin: No rashes (Generalized bruising) Neuro: Normal speech, Strength at 5/5 X4 ext Psych/Mental Status: Mental status NL, Mood NL Labs/Xrays Labs Test 03/22/24 20:00 03/22/24 18:49 03/22/24 17:16 Range/Units Troponin I High Sensitivity 49 *H </=34 ng/L Urine Color Colorless Yellow Urine Clarity Clear Clear Urine pH 6.5 5.0-9.0 Urine Specific Victor 1.008 1.001-1.035 Urine Protein 1+ H Negative Urine Ketones Negative Negative Urine Blood 2+ H Negative /uL Urine Nitrite Negative Negative Urine Bilirubin Negative Negative Urine Urobilinogen Normal Negative mg/dL Urine Leukocyte Esterase Negative Negative /uL Urine RBC 1 0 - 4 /hpf Urine Microscopic WBC < 1 0-5 /HPF Urine Squamous Epithelial Cells Few <5 /hpf Urine Bacteria None seen None Seen /hpf Urine Glucose Normal Normal mg/dL White Blood Count 7.3 4.4-10.8 10^3/uL Red Blood Count 4.15 4.0-5.20 10^6/uL Hemoglobin 14.1 12.2-16.2 g/dL Hematocrit 41.8 36.0-46.0 % Mean Corpuscular Volume 100.7 H 80.0-100.0 fL Mean Corpuscular Hemoglobin 34.0 H 28.0-32.0 pg Mean Corpuscular Hemoglobin Concent 33.8 32.0-36.0 g/dL Red Cell Distribution Width 12.3 11.8-14.3 % Platelet Count 141 140-450 10^3/uL Mean Platelet Volume 8.1 6.9-10.8 fL Neutrophils (%) (Auto) 63.9 37.0-80.0 % Lymphocytes (%) (Auto) 26.4 10.0-50.0 % Monocytes (%) (Auto) 7.1 0.0-12.0 % Eosinophils (%) (Auto) 2.0 0.0-7.0 % Basophils (%) (Auto) 0.6 0.0-2.0 % Neutrophils # (Auto) 4.7 1.6-8.6 10 ^3/uL Lymphocytes # (Auto) 1.9 0.4-5.4 10 ^3/uL Monocytes # (Auto) 0.5 0-1.3 10 ^3/uL Eosinophils # (Auto) 0.2 0-0.8 10 ^3/uL Basophils # (Auto) 0 0-0.2 10 ^3/uL Nucleated Red Blood Cells 0.1 % D-Dimer, Quantitative 1.91 H 0.0-0.49 mg/L FEU Sodium Level 144 136-145 mmol/L Potassium Level 4.2 3.5-5.1 mmol/L Chloride Level 109 H 98-107 mmol/L Carbon Dioxide Level 25 20-31 mmol/L Anion Gap 10 5-15 Blood Urea Nitrogen 23 9-23 mg/dL Creatinine 1.14 H 0.550-1.02 mg/dL Glomerular Filtration Rate Calc 50 >90 mL/min BUN/Creatinine Ratio 20.2 H 10.0-20.0 Serum Glucose 160 H 74-106 mg/dL Calcium Level 10.5 H 8.7-10.4 mg/dL Assessment/Plan Assessment/Plan 78-year-old female presents with Stated past medical History With complaints of multiple syncopal episodes. Syncope and collapse Elevated troponin Elevated D dimer Uncontrolled hypertension DM with elevated blood glucose Hx CHF HX CABG HX CAD HX carotid aneurysm Plan Admit telemetry Cardiology consult. Echocardiogram. Continue home medication. As needed antihypertensives for optimal BP management. Orthostatic vital signs. CTA chest pending. BLE venous doppler r/o DVT. Bilateral carotid US. Blood glucose checks ACHS with regular insulin sliding skill coverage. Physical therapy evaluation. Continue home medication. GI ppx protonix / DVT ppx lovenox Plan discussed with: Patient My Orders Orders - TALYA VENTURA NP Procedure Category Date Status Time Admit ADMIT 03/22/24 Transmitted 20:58 Code Status CODE 03/22/24 Transmitted 20:58 Vital Signs ANNAMARIE 03/22/24 In Process 20:58 Review Orders With ANNAMARIE 03/22/24 In Process Adm. 20:58 Encourage Activity As ANNAMARIE 03/22/24 In Process Tolerate 20:58 Consistent DIET 03/23/24 Transmitted Carb(Ccho)Diabetes Breakfast Oxygen By Face Mask RT 03/22/24 Transmitted 20:58 Docusate Sodium PHA 03/22/24 In Process Capsule (Colace 21:00 Acetaminophen Tablet PHA 03/22/24 In Process (Tylenol Tablet) 21:00 Notify Of Changes ANNAMARIE 03/22/24 In Process From Base 20:58 Advance Directive ANNAMARIE 03/22/24 In Process 20:58 Echo 2d Mode Cardiac US 03/22/24 Logged DOP 20:58 Basic Metabolic Panel LAB 03/23/24 Logged 05:00 Basic Metabolic Panel LAB 03/24/24 Verified 05:00 Basic Metabolic Panel LAB 03/25/24 Verified 05:00 Basic Metabolic Panel LAB 03/26/24 Verified 05:00 Complete Blood Count LAB 03/23/24 Logged 05:00 Complete Blood Count LAB 03/24/24 Verified 05:00 Complete Blood Count LAB 03/25/24 Verified 05:00 Complete Blood Count LAB 03/26/24 Verified 05:00 Complete Blood Count LAB 03/27/24 Verified 05:00 Patient Condition ORDERS 03/22/24 Transmitted 20:58 Allergies ANNAMARIE 03/22/24 In Process 20:58 Ondansetron Hcl PHA 03/22/24 In Process (Zofran) 21:00 Enoxaparin Sodium PHA 03/23/24 In Process (Lovenox) 10:00 Sequential ANNAMARIE 03/22/24 In Process Compression Device Nitroglycerin PHA 03/22/24 In Process Sublingual (Ntrostat 21:00 Morphine Sulfate PHA 03/22/24 In Process Injection 21:00 Stat Ekg For Chest ANNAMARIE 03/22/24 In Process Pain 20:58 Notify Md Of Changes ANNAMARIE 03/22/24 In Process From Base 20:58 Field Engineer For ANNAMARIE 03/22/24 In Process 24 Hours 20:58 Emergency Dysrhythmia ANNAMARIE 03/22/24 In Process Protocol 20:58 Rhythm Strips Once ANNAMARIE 03/22/24 In Process Every Shift 20:58 Oxygen By Nasal RT 03/22/24 Transmitted Cannula 20:58 * Cardiology Consult CONS 03/22/24 Transmitted 20:58 Orthostatic Vital ORDERS 03/22/24 Transmitted Signs 20:58 Orthostatic Vital ORDERS 03/23/24 Transmitted Signs 20:58 Orthostatic Vital ORDERS 03/24/24 Transmitted Signs 20:58 Orthostatic Vital ORDERS 03/25/24 Transmitted Signs 20:58 Pt Request For Service PT 03/22/24 Logged 20:58 Hydralazine Injection PHA 03/22/24 In Process (Apresoline Inject 21:00 Clonidine Hcl Tablet PHA 03/22/24 In Process (Catapres Tablet) 21:00 Aspirin Tablet PHA 03/23/24 In Process 10:00 Atorvastatin (Lipitor) PHA 03/23/24 In Process 10:00 Troponin-I Hs LAB 03/23/24 Logged 04:00 Troponin-I Hs LAB 03/23/24 Logged 08:00 Fall Risk Precautions ANNAMARIE 03/22/[address] 20:[address] 03/22/24 Taken Contrast 23:37 Donepezil Tablet PHA 03/22/24 In Process (Aricept Tablet) 23:45 Carbidopa W Levodopa PHA 03/23/24 In Process 10/100mg (Sinemet 1 06:00 Carotid Duplx W Color US 03/23/24 Logged DOP 08:00 Bilat Lower Dvt US 03/23/24 Logged 08:00 Glucose Blood PHA 03/23/24 In Process (Accu-Chek Comfort 07:00 Insulin R (Human) PHA 03/23/24 In Process (Insulin R) 07:00 Dextrose 50% Syringe PHA 03/23/24 In Process 01:15 Ceftriaxone 1gm/50ml PHA 03/23/24 In Process D5w (Rocephin) 09:00 Date of Service: Mar 23, 2024 Billing Provider: JENSEN BAEZ MD Common Visit Codes: NOT BILLABLE JENSEN BAEZ MD 03/23/24 1319: Review of Systems Allergies: Coded Allergies: NO KNOWN ALLERGIES (Unverified , 06/27/15) Assessment/Plan Assessment/Plan Patient is seen evaluated and admitted by nurse practitioner this morning. Patient's chart is reviewed and discussed with the structural biologist. I agree with the nurse practitioner's evaluation, documentation, assessment and care plan as outlined. Plan discussed with: Other TALYA VENTURA NP Mar 23, 2024 01:56 JENSEN BAEZ MD Mar 23, 2024 13:19
--- NOTE | 2024-03-23 02:40 | DVH ---
CLINICAL HISTORY: SYNCOPE, ELEVATED D-DIMER TECHNIQUE: CT angiogram of the chest was performed with intravenous contrast. 3D MIP reconstructed im ages were created and archived on the PACS system. This exam was performed according to our [facility] dose optimization program. Up-to-date CT equipment and radiation dose reduction techniques are ut ilized as appropriate. [ COMPARISON: CT ANGIO CHEST CONTRAST on DOS: 03/16/22, FINDINGS: Lower Neck: Unremarkable Axilla, Mediastinum and Jennifer: Unremarkable. Heart and Great Vessels: Prior median sternotomy and CABG. Transcatheter aortic valve in place. Moder [place] coronary artery calcifications. The thoracic aorta is normal in caliber with moderate mixe d atherosclerotic plaque. There is no central, segmental, or subsegmental pulmonary artery filling d efects are seen to suggest pulmonary embolism. Airway, Lungs and Pleura: The trachea and central airways are patent. No airspace consolidation, pleu ral effusion, or pneumothorax. There is mild dependent and bibasilar atelectasis or scarring. Chest Wall and Osseous Structures: Multilevel thoracic spondylosis. No destructive osseous lesion. Upper abdomen: Redemonstration of thickened bilateral adrenal glands and a left upper pole renal cyst . 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 no ac deangelo abnormality in the upper abdomen. IMPRESSION: 1. No evidence of pulmonary embolism or pneumonia. 2. Prior median sternotomy and CABG 3. Transcatheter aortic valve in place.
[2024-03-23 04:20] LABS: Basophils # (auto) 0 10 ^3/uL (0-0.2); Basophils % (auto) 0.5 % (0.0-2.0); Eosinophils # (auto) 0.2 10 ^3/uL (0-0.8); Eosinophils % (auto) 3.7 % (0.0-7.0); Hematocrit 36.4 % (36.0-46.0); Hemoglobin 12.4 g/dL (12.2-16.2); Lymphocytes # (auto) 1.8 10 ^3/uL (0.4-5.4); Lymphocytes % (auto) 29.5 % (10.0-50.0); Mean Corpuscular Hemoglobin 33.8 pg (28.0-32.0); Mean Corpuscular Hgb Conc. 34.1 g/dL (32.0-36.0); Mean Corpuscular Volume 99.2 fL (80.0-100.0); Monocytes # (auto) 0.5 10 ^3/uL (0-1.3); Neutrophils # (auto) 3.5 10 ^3/uL (1.6-8.6); Neutrophils % (auto) 58.3 % (37.0-80.0); Nucleated Red Blood Cells % 0.1 %; Platelet Count (auto) 109 10^3/uL (140-450); Red Blood Cells 3.67 10^6/uL (4.0-5.20); Red Cell Distribution Width 12.4 % (11.8-14.3)
[2024-03-23 05:01] LABS: Potassium 3.7 mmol/L (3.5-5.1); Sodium 144 mmol/L (136-145)
[2024-03-23 05:02] LABS: Anion Gap 7 (5-15); Calcium 9.6 mg/dL (8.7-10.4); Carbon Dioxide 27 mmol/L (20-31)
[2024-03-23 05:07] LABS: BUN/Creatinine Ratio 20.8 (10.0-20.0); Blood Urea Nitrogen 21 mg/dL (9-23); Glucose 94 mg/dL (74-106)
[2024-03-23 05:24] LABS: Chloride 110 mmol/L (98-107)
[2024-03-23] MEDS: CARBIDOPA W LEVODOPA 10/100mg TABLET PO SCH (06:06)
[2024-03-23] MEDS: InsuLIN REG 1unit/0.01ml Soln (100units/ml) SC SCH (06:42)
[2024-03-23] MEDS: ACCU-CHEK COMFORT CURVE STRIP VI SCH (06:42)
[2024-03-23 08:00] VITALS: PULSE 66; RESP 16; O2SAT 94
--- NOTE | 2024-03-23 11:30 | DVH ---
Bilateral lower extremity venous duplex Clinical History: elevated ddimer Comparison: None Technique: Duplex Doppler evaluation of the deep venous systems of both lower extremities from the common femora l veins to the popliteal veins including color Doppler and spectral/pulsed waveform analysis was perf ormed. Findings: RIGHT SIDE: The common femoral vein demonstrates appropriate compressibility and waveform variability. There is compressibility/patency of the great saphenous vein at the proximal thigh. The femoral vein demonstrates appropriate compressibility and waveform variability. The deep femoral vein demonstrates appropriate compressibility and waveform variability. The popliteal vein demonstrates appropriate compressibility and waveform variability. There is normal compressibility at the tibioperoneal trunk. LEFT SIDE: The common femoral vein demonstrates appropriate compressibility and waveform variability. There is compressibility/patency of the great saphenous vein at the proximal thigh. The femoral vein demonstrates appropriate compressibility and waveform variability. The deep femoral vein demonstrates appropriate compressibility and waveform variability. The popliteal vein demonstrates appropriate compressibility and waveform variability. There is normal compressibility at the tibioperoneal trunk. Impression: 1. No right or left femoropopliteal venous thrombosis.
[2024-03-23] MEDS: cefTRIAXone 1GM/50ML D5W 50 ML IV SCH (11:57)
[2024-03-23] MEDS: ATORVASTATIN 20 MG TAB PO SCH (11:57)
[2024-03-23] MEDS: ASPirin 81 mg TAB PO SCH (11:58)
[2024-03-23] MEDS: ENOXAPARIN SOD 40 MG/0.4 ML SYRINGE SC SCH (11:58)
--- NOTE | 2024-03-23 13:31 | DVH ---
Carotid Duplex Clinical History: syncope Comparison: None Technique: Duplex Doppler evaluation of the extracranial carotid and vertebral arteries including color Doppler and spectral/pulsed waveform analysis was performed. Findings: RIGHT SIDE: The peak systolic velocities are 64 cm/s in the CCA, 113 cm/s in the ICA. The ICA/CCA ratio is 1.7. Visually there appears to be moderate atherosclerotic plaque at the carotid bulb. The external carotid artery is patent with peak systolic velocity of 329 cm/s proximally. There is appropriate antegrade flow in the right vertebral artery. LEFT SIDE: The peak systolic velocities are 89 cm/s in the CCA, 113 cm/s in the ICA. The ICA/CCA ratio is 1.3. Visually there appears to be mild atherosclerotic plaque at the carotid bulb. The external carotid artery is patent with peak systolic velocity of 242 cm/s proximally. There is appropriate antegrade flow in the left vertebral artery. IMPRESSION: 1. No hemodynamically significant stenosis in the right or left carotid systems. 2. Visually there is moderate right and mild left atherosclerosis at the carotid bulbs. 3. Possible narrowing in the external carotid arteries, [id number]. Reference: Radiology 2003; 229:340-346 Normal ICA PSV is <125 cm/sec and no plaque or intimal thickening is visible sonographically additional criteria include ICA/CCA PSV ratio <2.0 and ICA EDV <40 cm/sec <50% ICA stenosis ICA PSV is <125 cm/sec and plaque or intimal thickening is visible sonographically additional criteria include ICA/CCA PSV ratio <2.0 and ICA EDV <40 cm/sec 50-69% ICA stenosis ICA PSV is 125-230 cm/sec and plaque is visible sonographically additional criteria include ICA/CCA PSV ratio of 2.0-4.0 and ICA EDV of 40-100 cm/sec 70% ICA stenosis but less than near occlusion ICA PSV is >230 cm/sec and visible plaque and luminal narrowing are seen at ballard-scale and color Dopp ler ultrasound (the higher the Doppler parameters lie above the threshold of 230 cm/sec, the greater the likelihood of severe disease) additional criteria include ICA/CCA PSV ratio >4 and ICA EDV >100 cm/sec
[2024-03-23] MEDS: ONDANSETRON HCL 4 MG/2 ML VIAL IV PRN (14:01)
[2024-03-23] MEDS: hydrALAZINE HCL 20 MG/ML VL IV PRN (14:01)
[2024-03-23] MEDS: MORPHINE SULFATE INJ 2 MG/ml SYRG IV PRN (14:01)
[2024-03-23 16:45] VITALS: BP 160/52; PULSE 76; RESP 20; TEMP 97.5; O2SAT 100
[2024-03-23 17:17] VITALS: BP 160/52; PULSE 76; RESP 16; TEMP 97; O2SAT 100
[2024-03-23 20:00] VITALS: PULSE 69; PULSE 70; RESP 18; O2SAT 100
[2024-03-23 21:00] VITALS: BP 166/40; PULSE 70; RESP 18; TEMP 98.1; O2SAT 100
[2024-03-23] MEDS: LATANOPROST 0.005 % OPTH(EYE) SOL 2.5ML EACHEYE SCH (22:03)
--- NOTE | 2024-03-23 23:10 | DVHSR ---
APPROVED REPORT EXAM: Two-dimensional and M-mode echocardiogram with Doppler and color Doppler. Blood Pressure: 156/57 mmHg INDICATION Syncope Surgery/Intervention Valve Replacement: Type: TAVR RISK FACTORS Height: 5' 6", Weight: 154 DIMENSIONS LVDd4.5 (3.8-5.7cm)LA (2D)3.8 (1.9-4.0cm)Aortic Root (2.0-3.7cm) LVDs3.2 (2.5-4.0cm)LA (MM) (1.9-4.0cm)Aortic Cusp Exc (1.5-2.0cm) EF (%) 56.0 (55-70%)Rt. Atrium3.5 (1.9-4.0cm)Asc. Aorta cm IVSd1.0 (0.7-1.1cm)RV (D) (1.8-2.4cm) PWd0.9 (0.7-1.1cm) Mitral Valve MitralMitral Stenosis E wave0.80m/sMV Mean GR.mmHg A wave0.90m/sMV Peak GR.mmHg E/A ratio0.92D MVAcm2 Aortic Valve Aortic ValveAortic Stenosis V10.50m/Jaguar Mean GR.3mmHg V21.20m/Jaguar Peak GR.6mmHg LVOT Diameter2.0 (1.8-2.4cm)Doppler AVA1.31cm2 AI P 1/2 Watc199.93ms Pulmonic Valve V20.60m/s Conclusion MODERATELY CALCIFIED AORTIC LEAFLETS MILD AORTIC STENOSIS MILD LVH AND MILD LV DIASTOLIC DYSFUNCTION LV EJETION FRACTION IS 65% MODERATE DEGREE MR NO EFFUSION
--- NOTE | 2024-03-23 23:16 | DVHINCON2 ---
Date of service: Mar 23, 2024 Referring Physician Uma Reason for Consultation Syncope, Elevated troponin History of Present Illness This is a 78 year old female with a PMH of Anemia, CHF, CAD, HTN, CABG and an Aortic Valve Replacement who was brought in by ambulance with complaints of a s yncopal episode. EMS report that the patient has had a total of 3 previous syncopal episodes in her life with the recent being 1 month ago. EMS state that the syncopal episode was witnessed by the daughter and that the daughter stated that the patent did not have a seizure. EMS note that the patient's BS on scene was 137. Patient states that all she remember is blacking out and hitting her right hip, right elbow and the right side of the head. When patient arrived the the ED she started mentioning of having Chest pressure. Patient is followed up by [facility] for Carotid Aneurism. Troponin 36 > 33 > 49 > 55 > 45. Chest x-ray shows NAD. Patient was admitted to the hospital. I am asked to consult on this patient. Family History: Alcoholism G8 FATHER Cancer G8 SISTER Cardiovascular disease G8 MOTHER G8 FATHER Family history: Cardiovascular disease Hypertension G8 FATHER Allergies: Coded Allergies: Hydralazine (Verified Adverse Reaction, Severe, respiratory distress, 03/23/24) Home Meds Active Scripts Amlodipine Besylate (NORVASC TABLET) 5 Mg Tb, 5 MG PO DAILY, #30 TAB Prov:ANNA CASILLAS MD 03/17/22 Reported Medications Dicyclomine Hcl (Dicyclomine Hcl) 10 Mg Cap, 10 MG PO TIDWMEALS, MG 03/22/24 Losartan Potassium (Losartan Potassium) 25 Mg Tab, 25 MG PO DAILY for 30 Days, MG 03/22/24 Cilostazol (Cilostazol) 100 Mg Tab, 100 MG PO DAILY, MG 03/22/24 Glucosamine Sulfate (Glucosamine) 1,000 Mg Cap, 1000 MG PO DAILY 03/16/22 [place]-3 Fatty Acids (Fish Oil) 1,000 Mg Cap, 1000 MG PO 03/16/22 Polyethylene Glycol (MIRALAX 17GM PWD) 17 Gm Pw, 17 GRAMS PO DAILY 03/16/22 Multiple Vitamins W/ Minerals (Centrum Adults) 1 Tab Tab, 1 TAB PO DAILY for SUPPLEMENT, TAB 10/21/21 Gabapentin (Gabapentin) 300 Mg Cap, 1 CAP PO HS for NEUROPATHY, #90 CAP 5 Refills 10/21/21 Levothyroxine Sodium (Levothyroxine Sodium) 75 Mcg Tab, 1 TAB PO DAILY for LOW THYROID, #30 TAB 5 Refills 10/21/21 Niacinamide (NIACIN) 500 Mg Tab, 500 MG PO DAILY for SUPPLEMENT, TAB 10/21/21 Donepezil Hydrochloride (DONEPEZIL HCL) 5 Mg Tab, 1 TAB PO DAILY for COGNITIVE IMPAIRMENT, #30 TAB 5 Refills 10/21/21 Furosemide (Lasix) 40 Mg Tab, 40 MG PO DAILY for EDEMA, TAB 10/21/21 Clopidogrel Bisulfate (Plavix) 75 Mg Tab, 1 TAB PO DAILY for UNSTABLE ANGINA, #90 TAB 1 Refill 10/21/21 Aspirin (Aspir-81) 81 Mg Tab, 1 TAB PO DAILY, #30 TAB 5 Refills 07/13/15 Latanoprost (LATANOPROST) 0.005 % Billie, 1 DROP EACHEYE QPM for glaucoma, #7.5 ML 3 Refills 06/28/15 Discontinued Reported Medications Fexofenadine Hydrochloride (VIRAJ ALLERGY) 180 Mg Tab, 1 TAB PO DAILY for ALLERGIES, #30 TAB 2 Refills 10/21/21 Pantoprazole Sodium Sesquihydr (Pantoprazole Sodium) 40 Mg Tab, 40 MG PO DAILY for GERD, TAB 10/21/21 Current Medications Current Medications Medications (Trade) Dose Ordered Sig/Jorje Route PRN Reason Start Time Stop Time Status Last Admin Docusate Sodium (Colace Capsule) 100 mg BIDPRN PRN PO FOR CONSTIPATION 03/22/24 21:00 Acetaminophen (Tylenol Tablet) 650 mg Q6HP PRN PO PAIN SCALE 1-3 OR TEMP>100.4 03/22/24 21:00 03/22/24 22:00 Ondansetron HCl (Zofran) 4 mg Q4HP PRN IV NAUSEA / VOMITING 03/22/24 21:00 03/23/24 14:01 Enoxaparin Sodium (Lovenox) 40 mg DAILY SC 03/23/24 10:00 03/23/24 11:58 Nitroglycerin (Ntrostat Sublingual) 0.4 mg Q5MINP PRN SL FOR CHEST PAIN 03/22/24 21:00 Morphine Sulfate 2 mg Q30M PRN IV FOR CHEST PAIN 03/22/24 21:00 03/23/24 14:01 Hydralazine HCl (Apresoline Injection) 10 mg Q4HPRN PRN IV SBP > 160 03/22/24 21:00 03/23/24 15:24 DC 03/23/24 14:01 Clonidine HCl (Catapres Tablet) 0.1 mg BID PRN PO SBP > 180 03/22/24 21:00 Aspirin 81 mg DAILY PO 03/23/24 10:00 03/23/24 11:58 Atorvastatin Calcium (Lipitor) 40 mg DAILY PO 03/23/24 10:00 03/23/24 11:57 Donepezil HCl (Aricept Tablet) 5 mg HS PO 03/22/24 23:45 03/23/24 00:25 Carbidopa/Levodopa (Sinemet 10/ 100mg) 1 tab TID PO 03/23/24 06:00 03/23/24 14:03 Diagnostic Test (Pha) (Accu-Chek Comfort Curve T) 1 strip ACHS 03/23/24 07:00 03/23/24 17:11 Insulin Human Regular (InsuLIN R) ACHS SC 03/23/24 07:00 Dextrose 50 ml UD PRN IV Blood Sugar LESS THAN 60 03/23/24 01:15 Ceftriaxone Sodium 50 ml @ 100 mls/hr DAILY@09 IV 03/23/24 09:00 03/23/24 11:57 Amlodipine Besylate (Norvasc Tablet) 5 mg DAILY PO 03/24/24 10:00 Latanoprost (Xalatan) 1 drop HS EACHEYE 03/23/24 22:00 Losartan Potassium (Cozaar Tablet) 25 mg DAILY PO 03/24/24 10:00 Levothyroxine Sodium (Synthroid Tablet) 75 mcg QAM PO 03/24/24 07:00 Cilostazol (Pletal) 100 mg DAILY PO 03/24/24 10:00 Clopidogrel Bisulfate (Plavix) 75 mg DAILY PO 03/24/24 10:00 Review of Systems Constitutional: denies: chills, diaphoresis, fatigue, fever, malaise, sweats, weakness, others EENTM: denies: blurred vision, double vision, ear bleeding, ear discharge, ear drainage, ear pain, ear ringing, eye pain, eye redness, hearing loss, mouth pain, mouth swelling, nasal discharge, nose bleeding, nose congestion, nose pain, photophobia, tearing, throat pain, throat swelling, voice changes, others Respiratory: denies: cough, hemoptysis, orthopnea, SOB at rest, shortness of breath, SOB with excertion, stridor, wheezing, others Cardiovascular: reports: chest pain, syncope; denies: dizzy spells, diaphoresis, Dyspnea on exertion, edema, irregular heart beat, left arm pain, lightheadedness, palpitations, PND, others Gastrointestinal: denies: abdomen distended, abdominal pain, blood streaked bowels, constipated, diarrhea, dysphagia, difficulty swallowing, hematemesis, melena, nausea, poor appetite, poor fluid intake, rectal bleeding, rectal pain, vomiting, others Genitourinary: denies: abnormal vagina bleeding, burning, dyspareunia, dysuria, flank pain, frequency, hematuria, incontinence, pain, , vagina discharge, urgency, others Neurological: denies: dizziness, fainting, headache, left sided numbness, left sided weakness, numbness, paresthesia, pre-existing deficit, right sided numbness, right sided weakness, seizure, speech problems, tingling, tremors, weakness, others Musculoskeletal: denies: back pain, gout, joint pain, joint swelling, muscle pain, muscle stiffness, neck pain, others Integumetry: denies: bruises, change in color, change in hair/nails, dryness, laceration, lesions, lumps, rash, wounds, others Allergic/Immunocompromised: denies: Difficulty Healing, Frequent Infections, Hives, Itching, others Hematologic/Lymphatic: denies: anemia, blood clots, easy bleeding, easy bruising, swollen glands, others Endocrine: denies: excessive hunger, excessive sweating, excessive thirst, excessive urination, flushing, intolerance to cold, intolerance to heat, u nexplained weight gain, unexplained weight loss, others Psychiatric: denies: anxiety, bipolar disorder, depression, hopeless, panic disorder, schizophrenia, sleepless, suicidal, others All Other Systems: Reviewed and Negative Vital Signs Vital Signs Date Time Temp Pulse Resp B/P (MAP) Pulse Ox O2 Delivery O2 Flow Rate FiO2 03/23/24 17:17 97.0 76 16 160/52 (88) 100 97.0 2/9/25 17:17 Nasal Cannula* 2 28 Physical Exam GENERAL: Awake, alert, oriented. LUNGS: Clear. CARDIOVASCULAR: Heart sounds are good. ABDOMEN: Soft. EXT: Right elbow w/ skin abrasion. Labs/Diagnostic Data Labs Test 03/23/24 17:09 03/23/24 08:10 03/23/24 03:54 03/22/24 18:49 Range/Units POC Glucose 102 70-106 mg/dl Troponin I High Sensitivity 45 *H </=34 ng/L White Blood Count 6.0 4.4-10.8 10^3/uL Red Blood Count 3.67 L 4.0-5.20 10^6/uL Hemoglobin 12.4 12.2-16.2 g/dL Hematocrit 36.4 # 36.0-46.0 % Mean Corpuscular Volume 99.2 80.0-100.0 fL Mean Corpuscular Hemoglobin 33.8 H 28.0-32.0 pg Mean Corpuscular Hemoglobin Concent 34.1 32.0-36.0 g/dL Red Cell Distribution Width 12.4 11.8-14.3 % Platelet Count 109 L 140-450 10^3/uL Mean Platelet Volume 8.0 6.9-10.8 fL Neutrophils (%) (Auto) 58.3 37.0-80.0 % Lymphocytes (%) (Auto) 29.5 10.0-50.0 % Monocytes (%) (Auto) 8.0 0.0-12.0 % Eosinophils (%) (Auto) 3.7 0.0-7.0 % Basophils (%) (Auto) 0.5 0.0-2.0 % Neutrophils # (Auto) 3.5 1.6-8.6 10 ^3/uL Lymphocytes # (Auto) 1.8 0.4-5.4 10 ^3/uL Monocytes # (Auto) 0.5 0-1.3 10 ^3/uL Eosinophils # (Auto) 0.2 0-0.8 10 ^3/uL Basophils # (Auto) 0 0-0.2 10 ^3/uL Nucleated Red Blood Cells 0.1 % Sodium Level 144 136-145 mmol/L Potassium Level 3.7 3.5-5.1 mmol/L Chloride Level 110 H 98-107 mmol/L Carbon Dioxide Level 27 20-31 mmol/L Anion Gap 7 5-15 Blood Urea Nitrogen 21 9-23 mg/dL Creatinine 1.01 0.550-1.02 mg/dL Glomerular Filtration Rate Calc 57 >90 mL/min BUN/Creatinine Ratio 20.8 H 10.0-20.0 Serum Glucose 94 74-106 mg/dL Calcium Level 9.6 8.7-10.4 mg/dL Urine Color Colorless Yellow Urine Clarity Clear Clear Urine pH 6.5 5.0-9.0 Urine Specific [place] 1.008 1.001-1.035 Urine Protein 1+ H Negative Urine Ketones Negative Negative Urine Blood 2+ H Negative /uL Urine Nitrite Negative Negative Urine Bilirubin Negative Negative Urine Urobilinogen Normal Negative mg/dL Urine Leukocyte Esterase Negative Negative /uL Urine RBC 1 0 - 4 /hpf Urine Microscopic WBC < 1 0-5 /HPF Urine Squamous Epithelial Cells Few <5 /hpf Urine Bacteria None seen None Seen /hpf Urine Glucose Normal Normal mg/dL Test 03/22/24 17:16 Range/Units D-Dimer, Quantitative 1.91 H 0.0-0.49 mg/L FEU Assessment Syncope and collapse. Elevated troponin. Elevated D dimer. Uncontrolled hypertension. DM with elevated blood glucose. History of CHF. History of CABG. History of CAD. History of carotid aneurysm. Plan/Recommendation I agree with your ongoing assessment and care of plan. Telemetry reviewed. Echocardiogram. Amlodipine, Losartan, Sinemet, Clonidine. Aspirin, Lipitor, Plavix. IV antibiotics as ordered. Morphine for pain management. DVT prophylactics. Additional plan as per the hospital course. A total of 45 minutes was spent reviewing the patient record, examining the patient, making a diagnostic and therapeutic plan, discussing this plan with medical personnel, following up on diagnostic studies and following the patient for clinical stability excluding any and all procedures. At least 50% of this time was spent in direct, [id number] contact. Plan discussed with: Patient HOSSEIN GARRETT MD Mar 23, 2024 20:27
[2024-03-24] VITALS (11 sets, daily range): BP systolic 98–192; BP diastolic 44–78; PULSE 65–86; RESP 6–20; TEMP 97.6–98.2; O2SAT 96–99
[2024-03-24] MEDS: LEVOTHYROXINE SODIUM 25 MCG TAB PO SCH (06:28)
[2024-03-24 07:15] LABS: Basophils # (auto) 0 10 ^3/uL (0-0.2); Basophils % (auto) 0.9 % (0.0-2.0); Eosinophils # (auto) 0.1 10 ^3/uL (0-0.8); Eosinophils % (auto) 2.2 % (0.0-7.0); Hemoglobin 12.4 g/dL (12.2-16.2); Lymphocytes # (auto) 1.5 10 ^3/uL (0.4-5.4); Lymphocytes % (auto) 29.4 % (10.0-50.0); Mean Corpuscular Hemoglobin 33.5 pg (28.0-32.0); Mean Corpuscular Hgb Conc. 33.6 g/dL (32.0-36.0); Mean Corpuscular Volume 99.5 fL (80.0-100.0); Monocytes # (auto) 0.4 10 ^3/uL (0-1.3); Monocytes % (auto) 8.7 % (0.0-12.0); Neutrophils % (auto) 58.8 % (37.0-80.0); Nucleated Red Blood Cells % 0.1 %; Platelet Count (auto) 111 10^3/uL (140-450); Red Blood Cells 3.72 10^6/uL (4.0-5.20); Red Cell Distribution Width 12.4 % (11.8-14.3)
[2024-03-24 07:16] LABS: Anion Gap 7 (5-15); Carbon Dioxide 27 mmol/L (20-31); Potassium 4.2 mmol/L (3.5-5.1); Sodium 144 mmol/L (136-145)
[2024-03-24 07:18] LABS: Calcium 9.7 mg/dL (8.7-10.4)
[2024-03-24 07:22] LABS: BUN/Creatinine Ratio 16.1 (10.0-20.0); Blood Urea Nitrogen 19 mg/dL (9-23); Glucose 81 mg/dL (74-106)
[2024-03-24 07:23] LABS: Chloride 110 mmol/L (98-107)
[2024-03-24] MEDS: amLODIPine BESYLATE 5 MG TAB PO SCH (09:40)
[2024-03-24] MEDS: LOSARTAN POTASSIUM 25 MG TAB PO SCH (09:40)
[2024-03-24] MEDS: CILOSTAZOL 100 MG TAB PO SCH (09:40)
[2024-03-24] MEDS: CLOPIDOGREL BISULFATE 75 MG TAB PO SCH (09:40)
--- NOTE | 2024-03-24 11:43 | ECG ---
[facility] Test Date: 2024-03-23 Test Time: 07:46:10 Pat Name: GENTRY SOLIS Department: 12 Room: 0216T Gender: F [employer]: TAZ : [id number] Requested By: ISRRAEL CAMPOS Order Number: [id number] Reading MD: Nazario Hackett Measurements Intervals [place] Rate: 68 P: 85 NC: 212 QRS: 137 QRSD: 152 T: 31 QT: 467 QTc: 497 Interpretive Statements Sinus rhythm Borderline prolonged NC interval Right bundle branch block Electronically Signed On 03-27-2024 10:32:42 PST by Nazario Hackett Please click the below link to view image of tracing.
--- NOTE | 2024-03-24 14:24 | DVHPN2 ---
Progress Note - Dictate Date Seen: Mar 24, 2024 Medical Necessity Reason Pt with a Central, PICC or Fol: No Subjective Clinically stable. Son at bedside. Denies any dizziness lightheadedness. No chest pain or shortness for breath. Other review of systems normal. Echocardiogram results noted. vital signs Vital Sign Date Time Temp Pulse Resp B/P (MAP) Pulse Ox O2 Delivery O2 Flow Rate FiO2 03/24/24 09:40 142/47 03/24/24 09:00 97.6 70 6 99 97.6 03/24/24 08:12 Nasal Cannula* 2 28 Total Intake and Output 03/23/24 03/23/24 03/24/24 14:59 22:59 06:59 Intake Total 50 ml 105 ml Output Total 301 ml 200 ml Balance -251 ml -95 ml medications Current Medications Medications Dose Ordered Sig/Jorje Route Start Time Stop Time Status Last Admin Dose Admin Docusate Sodium 100 mg BIDPRN PRN PO 03/22/24 21:00 Acetaminophen 650 mg Q6HP PRN PO 03/22/24 21:00 03/24/24 06:42 650 MG Ondansetron HCl 4 mg Q4HP PRN IV 03/22/24 21:00 03/23/24 14:01 4 MG Enoxaparin Sodium 40 mg DAILY SC 03/23/24 10:00 03/23/24 11:58 40 MG Nitroglycerin 0.4 mg Q5MINP PRN SL 03/22/24 21:00 Morphine Sulfate 2 mg Q30M PRN IV 03/22/24 21:00 03/23/24 14:01 2 MG Clonidine HCl 0.1 mg BID PRN PO 03/22/24 21:00 Aspirin 81 mg DAILY PO 03/23/24 10:00 03/24/24 09:40 81 MG Atorvastatin Calcium 40 mg DAILY PO 03/23/24 10:00 03/24/24 09:39 40 MG Donepezil HCl 5 mg HS PO 03/22/24 23:45 03/23/24 22:03 5 MG Carbidopa/Levodopa 1 tab TID PO 03/23/24 06:00 03/23/24 14:03 1 TAB Diagnostic Test (Pha) 1 strip ACHS 03/23/24 07:00 03/24/24 11:33 1 STRIP Insulin Human Regular ACHS SC 03/23/24 07:00 03/24/24 11:37 2 UNITS Dextrose 50 ml UD PRN IV 03/23/24 01:15 Ceftriaxone Sodium 50 ml @ 100 mls/hr DAILY@09 IV 03/23/24 09:00 03/24/24 09:38 100 MLS/HR Amlodipine Besylate 5 mg DAILY PO 03/24/24 10:00 Latanoprost 1 drop HS EACHEYE 03/23/24 22:00 03/23/24 22:03 1 DROP Losartan Potassium 25 mg DAILY PO 03/24/24 10:00 03/24/24 09:40 25 MG Levothyroxine Sodium 75 mcg QAM PO 03/24/24 07:00 03/24/24 06:28 75 MCG Cilostazol 100 mg DAILY PO 03/24/24 10:00 03/24/24 09:40 100 MG Clopidogrel Bisulfate 75 mg DAILY PO 03/24/24 10:00 03/24/24 09:40 75 MG objective HEENT neck supple no JVD heart regular rate and rhythm S1 plus S2. Lungs fair air movement without rales wheezes. Abdomen soft nontender positive bowel sounds. Extremities no edema positive pulses. Neurologically no focal deficits. laboratory and microbiology Laboratory Tests 03/24/24 06:00 Test 03/24/24 06:00 Range/Units Serum Glucose 81 74-106 mg/dL Assessment/Plan Etiology for her possible syncopal episodes is unclear. Discussed with the patient and her daughter over the phone as well. Patient apparently had a heart valve surgery done last year at [facility]. Patient apparently has been having these episodes more frequently at least three episodes in the last eight months. For now we will continue present management as she is on here. We will have neurological consultation as well. MRA of the brain. Orthostatic blood pressures. Patient probably would benefit from a Holter/event monitor as an outpatient basis to further delineate her episodes to see if these are cardiac in nature. Otherwise further clinical management per recommendations from consultants. Discussed with the patient and daughter at length regarding care plan Problems(with codes): (1) Closed head injury (2) Syncope Plan discussed with: Patient, Daughter, Son JENSEN BAEZ MD Mar 24, 2024 14:24
--- NOTE | 2024-03-24 14:37 | DVHINCON2 ---
Neuro Consultation Date of Consultation Date: 03/24/24 History of Present Illness History of Present Illness: Mary Coley is a 78 year old female who presents with syncope She notes that she has had her 3rd episode where she was standing, felt her vision go black. She does not notice that everything turns black. Only her arms, head, body turns black. Distal to her knees is normal. The surrounding scenery and things around her are not black. She collapses, she says she cannot control it. She started to tremble and is not sure if she had LOC 02/2024 EEG (HDN) - normal study Review of Systems Review of Systems: Review of Systems: 12 point review of systems is negative unless stated in HPI. Family History Patient History: Alcoholism G8 FATHER Cancer G8 SISTER Cardiovascular disease G8 MOTHER G8 FATHER Family history: Cardiovascular disease Hypertension G8 FATHER Allergies and Medications Allergies: Coded Allergies: Hydralazine (Verified Adverse Reaction, Severe, respiratory distress, 03/23/24) Home Meds: Reported Medications Dicyclomine Hcl (Dicyclomine Hcl) 10 Mg Cap, 10 MG PO TIDWMEALS, MG 03/22/24 Losartan Potassium (Losartan Potassium) 25 Mg Tab, 25 MG PO DAILY for 30 Days, MG 03/22/24 Cilostazol (Cilostazol) 100 Mg Tab, 100 MG PO DAILY, MG 03/22/24 Glucosamine Sulfate (Glucosamine) 1,000 Mg Cap, 1000 MG PO DAILY 03/16/22 Gifford-3 Fatty Acids (Fish Oil) 1,000 Mg Cap, 1000 MG PO 03/16/22 Polyethylene Glycol (MIRALAX 17GM PWD) 17 Gm Pw, 17 GRAMS PO DAILY 03/16/22 Multiple Vitamins W/ Minerals (Centrum Adults) 1 Tab Tab, 1 TAB PO DAILY for SUPPLEMENT, TAB 10/21/21 Gabapentin (Gabapentin) 300 Mg Cap, 1 CAP PO HS for NEUROPATHY, #90 CAP 5 Refills 10/21/21 Levothyroxine Sodium (Levothyroxine Sodium) 75 Mcg Tab, 1 TAB PO DAILY for LOW THYROID, #30 TAB 5 Refills 10/21/21 Niacinamide (NIACIN) 500 Mg Tab, 500 MG PO DAILY for SUPPLEMENT, TAB 10/21/21 Donepezil Hydrochloride (DONEPEZIL HCL) 5 Mg Tab, 1 TAB PO DAILY for COGNITIVE IMPAIRMENT, #30 TAB 5 Refills 10/21/21 Furosemide (Lasix) 40 Mg Tab, 40 MG PO DAILY for EDEMA, TAB 10/21/21 Clopidogrel Bisulfate (Plavix) 75 Mg Tab, 1 TAB PO DAILY for UNSTABLE ANGINA, # 90 TAB 1 Refill 10/21/21 Aspirin (Aspir-81) 81 Mg Tab, 1 TAB PO DAILY, #30 TAB 5 Refills 07/13/15 Latanoprost (LATANOPROST) 0.005 % Billie, 1 DROP EACHEYE QPM for glaucoma, #7.5 ML 3 Refills 06/28/15 Discontinued Reported Medications Fexofenadine Hydrochloride (VIRAJ ALLERGY) 180 Mg Tab, 1 TAB PO DAILY for ALLERGIES, #30 TAB 2 Refills 10/21/21 Pantoprazole Sodium Sesquihydr (Pantoprazole Sodium) 40 Mg Tab, 40 MG PO DAILY for GERD, TAB 10/21/21 Current Medications: General Examination Last Vital sign Vital Signs Date Time Temp Pulse Resp B/P (MAP) Pulse Ox O2 Delivery O2 Flow Rate FiO2 03/25/24 09:31 167/84 03/25/24 09:00 97.7 82 16 96 97.7 03/25/24 08:00 Nasal Cannula* 2 28 General Exam: General Examination: General: No apparent distress, appears comfortable. Cooperative HEENT: Normocephalic, atraumatic. Supple neck. No oropharynx lesion or exudate noted. Extremities: No noted edema or cyanosis Skin: No noted rashes or jaundice. Neuro Exam: Mental Status: Alert and orientated to person, place, and time. Speech is fluent and logical, no aphasia noted. Cranial Nerves: Extraocular muscles are intact. No ptosis on primary gaze or fatigable ptosis noted. Intact sensation to light touch on face through V1-V3. No facial asymmetry noted. Tongue is midline with symmetrical palate elevation. Shoulder shrug is symmetrical. Motor: Bulk is normal. No abnormal movements were noted. B/L UE and LE antigravity strength Sensory: Intact to light touch Reflexes (R/L) +2 throughout, downgoing toes b/l Coordination: No dysmetria on finger nose finger, heel knee fisher. No ataxia noted Labs: Laboratory Tests Test 03/22/24 17:16 03/22/24 18:20 03/22/24 18:49 03/22/24 20:00 Range/Units White Blood Count 7.3 4.4-10.8 10^3/uL Red Blood Count 4.15 4.0-5.20 10^6/uL Hemoglobin 14.1 12.2-16.2 g/dL Hematocrit 41.8 36.0-46.0 % Mean Corpuscular Volume 100.7 H 80.0-100.0 fL Mean Corpuscular Hemoglobin 34.0 H 28.0-32.0 pg Mean Corpuscular Hemoglobin Concent 33.8 32.0-36.0 g/dL Red Cell Distribution Width 12.3 11.8-14.3 % Platelet Count 141 140-450 10^3/uL Mean Platelet Volume 8.1 6.9-10.8 fL Neutrophils (%) (Auto) 63.9 37.0-80.0 % Lymphocytes (%) (Auto) 26.4 10.0-50.0 % Monocytes (%) (Auto) 7.1 0.0-12.0 % Eosinophils (%) (Auto) 2.0 0.0-7.0 % Basophils (%) (Auto) 0.6 0.0-2.0 % Neutrophils # (Auto) 4.7 1.6-8.6 10 ^3/uL Lymphocytes # (Auto) 1.9 0.4-5.4 10 ^3/uL Monocytes # (Auto) 0.5 0-1.3 10 ^3/uL Eosinophils # (Auto) 0.2 0-0.8 10 ^3/uL Basophils # (Auto) 0 0-0.2 10 ^3/uL Nucleated Red Blood Cells 0.1 % D-Dimer, Quantitative 1.91 H 0.0-0.49 mg/L FEU Sodium Level 144 136-145 mmol/L Potassium Level 4.2 3.5-5.1 mmol/L Chloride Level 109 H 98-107 mmol/L Carbon Dioxide Level 25 20-31 mmol/L Anion Gap 10 5-15 Blood Urea Nitrogen 23 9-23 mg/dL Creatinine 1.14 H 0.550-1.02 mg/dL Glomerular Filtration Rate Calc 50 >90 mL/min BUN/Creatinine Ratio 20.2 H 10.0-20.0 Serum Glucose 160 H 74-106 mg/dL Calcium Level 10.5 H 8.7-10.4 mg/dL Troponin I High Sensitivity 36 *H 33 49 *H </=34 ng/L Urine Color Colorless Yellow Urine Clarity Clear Clear Urine pH 6.5 5.0-9.0 Urine Specific Rison 1.008 1.001-1.035 Urine Protein 1+ H Negative Urine Ketones Negative Negative Urine Blood 2+ H Negative /uL Urine Nitrite Negative Negative Urine Bilirubin Negative Negative Urine Urobilinogen Normal Negative mg/dL Urine Leukocyte Esterase Negative Negative /uL Urine RBC 1 0 - 4 /hpf Urine Microscopic WBC < 1 0-5 /HPF Urine Squamous Epithelial Cells Few <5 /hpf Urine Bacteria None seen None Seen /hpf Urine Glucose Normal Normal mg/dL Test 03/23/24 03:54 03/23/24 06:10 03/23/24 08:10 03/23/24 11:24 Range/Units White Blood Count 6.0 4.4-10.8 10^3/uL Red Blood Count 3.67 L 4.0-5.20 10^6/uL Hemoglobin 12.4 12.2-16.2 g/dL Hematocrit 36.4 # 36.0-46.0 % Mean Corpuscular Volume 99.2 80.0-100.0 fL Mean Corpuscular Hemoglobin 33.8 H 28.0-32.0 pg Mean Corpuscular Hemoglobin Concent 34.1 32.0-36.0 g/dL Red Cell Distribution Width 12.4 11.8-14.3 % Platelet Count 109 L 140-450 10^3/uL Mean Platelet Volume 8.0 6.9-10.8 fL Neutrophils (%) (Auto) 58.3 37.0-80.0 % Lymphocytes (%) (Auto) 29.5 10.0-50.0 % Monocytes (%) (Auto) 8.0 0.0-12.0 % Eosinophils (%) (Auto) 3.7 0.0-7.0 % Basophils (%) (Auto) 0.5 0.0-2.0 % Neutrophils # (Auto) 3.5 1.6-8.6 10 ^3/uL Lymphocytes # (Auto) 1.8 0.4-5.4 10 ^3/uL Monocytes # (Auto) 0.5 0-1.3 10 ^3/uL Eosinophils # (Auto) 0.2 0-0.8 10 ^3/uL Basophils # (Auto) 0 0-0.2 10 ^3/uL Nucleated Red Blood Cells 0.1 % Sodium Level 144 136-145 mmol/L Potassium Level 3.7 3.5-5.1 mmol/L Chloride Level 110 H 98-107 mmol/L Carbon Dioxide Level 27 20-31 mmol/L Anion Gap 7 5-15 Blood Urea Nitrogen 21 9-23 mg/dL Creatinine 1.01 0.550-1.02 mg/dL Glomerular Filtration Rate Calc 57 >90 mL/min BUN/Creatinine Ratio 20.8 H 10.0-20.0 Serum Glucose 94 74-106 mg/dL Calcium Level 9.6 8.7-10.4 mg/dL Troponin I High Sensitivity 55 *H 45 *H </=34 ng/L POC Glucose 90 125 H 70-106 mg/dl Test 03/23/24 17:09 03/23/24 22:09 03/24/24 06:00 03/24/24 06:44 Range/Units POC Glucose 102 126 H 94 70-106 mg/dl White Blood Count 5.0 4.4-10.8 10^3/uL Red Blood Count 3.72 L 4.0-5.20 10^6/uL Hemoglobin 12.4 12.2-16.2 g/dL Hematocrit 37.0 36.0-46.0 % Mean Corpuscular Volume 99.5 80.0-100.0 fL Mean Corpuscular Hemoglobin 33.5 H 28.0-32.0 pg Mean Corpuscular Hemoglobin Concent 33.6 32.0-36.0 g/dL Red Cell Distribution Width 12.4 11.8-14.3 % Platelet Count 111 L 140-450 10^3/uL Mean Platelet Volume 8.1 6.9-10.8 fL Neutrophils (%) (Auto) 58.8 37.0-80.0 % Lymphocytes (%) (Auto) 29.4 10.0-50.0 % Monocytes (%) (Auto) 8.7 0.0-12.0 % Eosinophils (%) (Auto) 2.2 0.0-7.0 % Basophils (%) (Auto) 0.9 0.0-2.0 % Neutrophils # (Auto) 3.0 1.6-8.6 10 ^3/uL Lymphocytes # (Auto) 1.5 0.4-5.4 10 ^3/uL Monocytes # (Auto) 0.4 0-1.3 10 ^3/uL Eosinophils # (Auto) 0.1 0-0.8 10 ^3/uL Basophils # (Auto) 0 0-0.2 10 ^3/uL Nucleated Red Blood Cells 0.1 % Sodium Level 144 136-145 mmol/L Potassium Level 4.2 3.5-5.1 mmol/L Chloride Level 110 H 98-107 mmol/L Carbon Dioxide Level 27 20-31 mmol/L Anion Gap 7 5-15 Blood Urea Nitrogen 19 9-23 mg/dL Creatinine 1.18 H 0.550-1.02 mg/dL Glomerular Filtration Rate Calc 48 >90 mL/min BUN/Creatinine Ratio 16.1 10.0-20.0 Serum Glucose 81 74-106 mg/dL Calcium Level 9.7 8.7-10.4 mg/dL Test 03/24/24 11:18 03/24/24 17:37 03/24/24 21:32 03/25/24 06:06 Range/Units POC Glucose 147 H 133 H 108 H 86 70-106 mg/dl Test 03/25/24 06:14 03/25/24 11:28 Range/Units White Blood Count 5.4 4.4-10.8 10^3/uL Red Blood Count 3.64 L 4.0-5.20 10^6/uL Hemoglobin 12.1 L 12.2-16.2 g/dL Hematocrit 36.6 36.0-46.0 % Mean Corpuscular Volume 100.5 H 80.0-100.0 fL Mean Corpuscular Hemoglobin 33.2 H 28.0-32.0 pg Mean Corpuscular Hemoglobin Concent 33.1 32.0-36.0 g/dL Red Cell Distribution Width 12.5 11.8-14.3 % Platelet Count 110 L 140-450 10^3/uL Mean Platelet Volume 8.2 6.9-10.8 fL Neutrophils (%) (Auto) 58.1 37.0-80.0 % Lymphocytes (%) (Auto) 27.0 10.0-50.0 % Monocytes (%) (Auto) 10.3 0.0-12.0 % Eosinophils (%) (Auto) 3.9 0.0-7.0 % Basophils (%) (Auto) 0.7 0.0-2.0 % Neutrophils # (Auto) 3.1 1.6-8.6 10 ^3/uL Lymphocytes # (Auto) 1.5 0.4-5.4 10 ^3/uL Monocytes # (Auto) 0.6 0-1.3 10 ^3/uL Eosinophils # (Auto) 0.2 0-0.8 10 ^3/uL Basophils # (Auto) 0 0-0.2 10 ^3/uL Nucleated Red Blood Cells 0.1 % Sodium Level 144 136-145 mmol/L Potassium Level 4.0 3.5-5.1 mmol/L Chloride Level 110 H 98-107 mmol/L Carbon Dioxide Level 28 20-31 mmol/L Anion Gap 6 5-15 Blood Urea Nitrogen 22 9-23 mg/dL Creatinine 1.04 H 0.550-1.02 mg/dL Glomerular Filtration Rate Calc 55 >90 mL/min BUN/Creatinine Ratio 21.2 H 10.0-20.0 Serum Glucose 84 74-106 mg/dL Calcium Level 10.3 8.7-10.4 mg/dL POC Glucose 139 H 70-106 mg/dl Assessment/Plan Assessment and Plan:Mary Coley is a 78 year old female who presents with syncope 1. Syncope - Seen by Dr. Sandoval in 01/2014. 02/2024 EEG was normal. 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 Her episdoes are unusal for seizure or amaurosis fugax. Her episdoes of seeing only her body black (and only from her head to her knees) is unlikely neurological. 03/24 MRI Brain - normal study. 03/23 Carotid ultrasound - No hemodynamically significant stenosis in the right or left carotid systems. Visually there is moderate right and mild left atherosclerosis at the carotid bulbs. Possible narrowing in the external carotid arteries, [id number]. - Continue supportive care F/U as outpt with neurosurgery and neurology Plan discussed with: Patient LORENZA HUANG MD Mar 24, 2024 14:36
--- NOTE | 2024-03-24 16:22 | DVH ---
EXAM: MRI BRAIN HEAD WO CONTRAST HISTORY: syncope COMPARISON: None TECHNIQUE: MRI was performed utilizing multiple appropriate imaging planes and pulse sequences. FINDINGS: SUPRATENTORIAL REGION: No evidence for acute ischemia or intracranial hemorrhage. Scattered ill-defi shelley FLAIR hyperintensities are noted within the bilateral periventricular region, still radiata and subcortical white matter. POSTERIOR FOSSA: Unremarkable. BRAINSTEM: Unremarkable. SELLAR/SUPRASELLAR REGION: Unremarkable. VENTRICLES, CISTERNS, SULCI: Age-appropriate. ORBITS: Unremarkable. PARANASAL SINUSES: Mild ethmoid sinus mucosal thickening. MASTOID AIR CELLS: Unremarkable. VASCULATURE: Unremarkable. BONES/ SOFT TISSUES: Unremarkable. OTHER: None. IMPRESSION: 1. No acute intracranial process identified. 2. Moderate chronic microvascular ischemic changes.
[2024-03-24] MEDS: cloNIDine HCL 0.1 MG TAB PO PRN (17:52)
--- NOTE | 2024-03-24 20:01 | DVHPN2 ---
Progress Note - Dictate Date Seen: Mar 24, 2024 Medical Necessity Reason Pt with a Central, PICC or Fol: No Subjective Patient was seen and evaluated in follow up. Family at bedside. Patient reports feeling better today. Echocardiogram shows an EF of 65%. There is mild aortic stenosis, mild LVH and LV diastolic dysfunction and moderate degree MR. vital signs Vital Sign Date Time Temp Pulse Resp B/P (MAP) Pulse Ox O2 Delivery O2 Flow Rate FiO2 03/24/24 18:52 136/40 03/24/24 17:00 97.9 76 17 96 97.9 03/24/24 08:12 Nasal Cannula* 2 28 Total Intake and Output 03/23/24 03/23/24 03/24/24 15:00 23:00 07:00 Intake Total 50 ml 105 ml Output Total 301 ml 200 ml Balance -251 ml -95 ml medications Current Medications Medications Dose Ordered Sig/Jorje Route Start Time Stop Time Status Last Admin Dose Admin Docusate Sodium 100 mg BIDPRN PRN PO 03/22/24 21:00 Acetaminophen 650 mg Q6HP PRN PO 03/22/24 21:00 03/24/24 06:42 650 MG Ondansetron HCl 4 mg Q4HP PRN IV 03/22/24 21:00 03/23/24 14:01 4 MG Enoxaparin Sodium 40 mg DAILY SC 03/23/24 10:00 03/23/24 11:58 40 MG Nitroglycerin 0.4 mg Q5MINP PRN SL 03/22/24 21:00 Morphine Sulfate 2 mg Q30M PRN IV 03/22/24 21:00 03/23/24 14:01 2 MG Clonidine HCl 0.1 mg BID PRN PO 03/22/24 21:00 03/24/24 17:52 0.1 MG Aspirin 81 mg DAILY PO 03/23/24 10:00 03/24/24 09:40 81 MG Atorvastatin Calcium 40 mg DAILY PO 03/23/24 10:00 03/24/24 09:39 40 MG Donepezil HCl 5 mg HS PO 03/22/24 23:45 03/23/24 22:03 5 MG Carbidopa/Levodopa 1 tab TID PO 03/23/24 06:00 03/23/24 14:03 1 TAB Diagnostic Test (Pha) 1 strip ACHS 03/23/24 07:00 03/24/24 17:00 1 STRIP Insulin Human Regular ACHS SC 03/23/24 07:00 03/24/24 17:56 2 UNITS Dextrose 50 ml UD PRN IV 03/23/24 01:15 Ceftriaxone Sodium 50 ml @ 100 mls/hr DAILY@09 IV 03/23/24 09:00 03/24/24 09:38 100 MLS/HR Amlodipine Besylate 5 mg DAILY PO 03/24/24 10:00 Latanoprost 1 drop HS EACHEYE 03/23/24 22:00 03/23/24 22:03 1 DROP Losartan Potassium 25 mg DAILY PO 03/24/24 10:00 03/24/24 09:40 25 MG Levothyroxine Sodium 75 mcg QAM PO 03/24/24 07:00 03/24/24 06:28 75 MCG Cilostazol 100 mg DAILY PO 03/24/24 10:00 03/24/24 09:40 100 MG Clopidogrel Bisulfate 75 mg DAILY PO 03/24/24 10:00 03/24/24 09:40 75 MG objective GENERAL: Awake, alert, oriented. LUNGS: Clear. CARDIOVASCULAR: Heart sounds are good. ABDOMEN: Soft. EXT: Right elbow w/ skin abrasion. laboratory and microbiology Laboratory Tests 03/24/24 06:00 Test 03/24/24 06:00 Range/Units Serum Glucose 81 74-106 mg/dL Problem List Syncope and collapse. Elevated troponin. Elevated D dimer. Uncontrolled hypertension. DM with elevated blood glucose. History of CHF. History of CABG. History of CAD. History of carotid aneurysm. Assessment/Plan Continued all current supportive medical care. Amlodipine, Losartan, Sinemet, Clonidine. Aspirin, Lipitor, Plavix. IV antibiotics as ordered. Morphine for pain management. DVT prophylactics. Additional plan as per the hospital course. Plan discussed with: Patient HOSSEIN GARRETT MD Mar 24, 2024 20:01
[2024-03-25] VITALS (8 sets, daily range): BP systolic 142–176; BP diastolic 39–61; PULSE 60–112; RESP 16–20; TEMP 97.3–98; O2SAT 93–99
[2024-03-25 07:42] LABS: Basophils # (auto) 0 10 ^3/uL (0-0.2); Basophils % (auto) 0.7 % (0.0-2.0); Eosinophils # (auto) 0.2 10 ^3/uL (0-0.8); Eosinophils % (auto) 3.9 % (0.0-7.0); Hematocrit 36.6 % (36.0-46.0); Hemoglobin 12.1 g/dL (12.2-16.2); Lymphocytes # (auto) 1.5 10 ^3/uL (0.4-5.4); Mean Corpuscular Hemoglobin 33.2 pg (28.0-32.0); Mean Corpuscular Hgb Conc. 33.1 g/dL (32.0-36.0); Mean Corpuscular Volume 100.5 fL (80.0-100.0); Monocytes # (auto) 0.6 10 ^3/uL (0-1.3); Monocytes % (auto) 10.3 % (0.0-12.0); Neutrophils # (auto) 3.1 10 ^3/uL (1.6-8.6); Neutrophils % (auto) 58.1 % (37.0-80.0); Nucleated Red Blood Cells % 0.1 %; Platelet Count (auto) 110 10^3/uL (140-450); Red Blood Cells 3.64 10^6/uL (4.0-5.20); Red Cell Distribution Width 12.5 % (11.8-14.3); White Blood Cell 5.4 10^3/uL (4.4-10.8)
[2024-03-25 08:30] LABS: Anion Gap 6 (5-15); Carbon Dioxide 28 mmol/L (20-31); Sodium 144 mmol/L (136-145)
[2024-03-25 08:31] LABS: Calcium 10.3 mg/dL (8.7-10.4)
[2024-03-25 08:36] LABS: BUN/Creatinine Ratio 21.2 (10.0-20.0); Blood Urea Nitrogen 22 mg/dL (9-23); Glucose 84 mg/dL (74-106)
[2024-03-25 08:55] LABS: Chloride 110 mmol/L (98-107)
--- NOTE | 2024-03-25 14:28 | DVHPN2 ---
Progress Note - Dictate Date Seen: Mar 25, 2024 Medical Necessity Reason Pt with a Central, PICC or Fol: No Subjective Patient was seen and evaluated in follow up. Patient is complaining of right elbow pain.MRI brain shows no acute intracranial process identified. Moderate chronic microvascular ischemic changes. Telemetry reviewed. vital signs Vital Sign Date Time Temp Pulse Resp B/P (MAP) Pulse Ox O2 Delivery O2 Flow Rate FiO2 03/25/24 09:31 167/84 03/25/24 09:00 97.7 82 16 96 97.7 03/25/24 08:00 Nasal Cannula* 2 28 Total Intake and Output 03/24/24 03/24/24 03/25/24 15:00 23:00 07:00 Intake Total 825 ml 600 ml Output Total 725 ml Balance 100 ml 600 ml medications Current Medications Medications Dose Ordered Sig/Jorje Route Start Time Stop Time Status Last Admin Dose Admin Docusate Sodium 100 mg BIDPRN PRN PO 03/22/24 21:00 Acetaminophen 650 mg Q6HP PRN PO 03/22/24 21:00 03/24/24 06:42 650 MG Ondansetron HCl 4 mg Q4HP PRN IV 03/22/24 21:00 03/23/24 14:01 4 MG Enoxaparin Sodium 40 mg DAILY SC 03/23/24 10:00 03/23/24 11:58 40 MG Nitroglycerin 0.4 mg Q5MINP PRN SL 03/22/24 21:00 Morphine Sulfate 2 mg Q30M PRN IV 03/22/24 21:00 03/23/24 14:01 2 MG Clonidine HCl 0.1 mg BID PRN PO 03/22/24 21:00 03/24/24 17:52 0.1 MG Aspirin 81 mg DAILY PO 03/23/24 10:00 03/25/24 09:31 81 MG Atorvastatin Calcium 40 mg DAILY PO 03/23/24 10:00 03/25/24 09:30 40 MG Donepezil HCl 5 mg HS PO 03/22/24 23:45 03/24/24 22:12 5 MG Carbidopa/Levodopa 1 tab TID PO 03/23/24 06:00 03/25/24 05:56 1 TAB Diagnostic Test (Pha) 1 strip ACHS 03/23/24 07:00 03/25/24 11:36 1 STRIP Insulin Human Regular ACHS SC 03/23/24 07:00 03/24/24 17:56 2 UNITS Dextrose 50 ml UD PRN IV 03/23/24 01:15 Ceftriaxone Sodium 50 ml @ 100 mls/hr DAILY@09 IV 03/23/24 09:00 03/25/24 09:24 100 MLS/HR Amlodipine Besylate 5 mg DAILY PO 03/24/24 10:00 03/25/24 09:31 5 MG Latanoprost 1 drop HS EACHEYE 03/23/24 22:00 03/24/24 22:12 1 DROP Losartan Potassium 25 mg DAILY PO 03/24/24 10:00 03/25/24 09:30 25 MG Levothyroxine Sodium 75 mcg QAM PO 03/24/24 07:00 03/25/24 06:24 75 MCG Cilostazol 100 mg DAILY PO 03/24/24 10:00 03/25/24 09:31 100 MG Clopidogrel Bisulfate 75 mg DAILY PO 03/24/24 10:00 03/25/24 09:31 75 MG objective GENERAL: Awake, alert, oriented. LUNGS: Clear. CARDIOVASCULAR: Heart sounds are good. ABDOMEN: Soft. EXT: Right elbow w/ skin abrasion. laboratory and microbiology Laboratory Tests 03/25/24 06:14 Test 03/25/24 06:14 Range/Units Serum Glucose 84 74-106 mg/dL Problem List Syncope and collapse. Elevated troponin. Elevated D dimer. Uncontrolled hypertension. DM with elevated blood glucose. History of CHF. History of CABG. History of CAD. History of carotid aneurysm. Assessment/Plan Continued all current supportive medical care. Amlodipine, Losartan, Sinemet, Clonidine. Aspirin, Lipitor, Plavix. IV antibiotics as ordered. Morphine for pain management. DVT prophylactics. Additional plan as per the hospital course. Plan discussed with: Patient HOSSEIN GARRETT MD Mar 25, 2024 14:28
--- NOTE | 2024-03-25 17:21 | DVHPN2 ---
Progress Note - Dictate Date Seen: Mar 25, 2024 Medical Necessity Reason Pt with a Central, PICC or Fol: No Subjective Clinically stable. Her daughter is at bedside. Patient is seen and evaluated by Cardiology and Neurology. Patient without complaints. vital signs Vital Sign Date Time Temp Pulse Resp B/P (MAP) Pulse Ox O2 Delivery O2 Flow Rate FiO2 03/25/24 13:00 98.0 64 16 175/54 (94) 99 98.0 03/25/24 08:00 Nasal Cannula* 2 28 Total Intake and Output 03/24/24 03/24/24 03/25/24 15:00 23:00 07:00 Intake Total 825 ml 600 ml Output Total 725 ml Balance 100 ml 600 ml medications Current Medications Medications Dose Ordered Sig/Jorje Route Start Time Stop Time Status Last Admin Dose Admin Docusate Sodium 100 mg BIDPRN PRN PO 03/22/24 21:00 Acetaminophen 650 mg Q6HP PRN PO 03/22/24 21:00 03/24/24 06:42 650 MG Ondansetron HCl 4 mg Q4HP PRN IV 03/22/24 21:00 03/23/24 14:01 4 MG Enoxaparin Sodium 40 mg DAILY SC 03/23/24 10:00 03/23/24 11:58 40 MG Nitroglycerin 0.4 mg Q5MINP PRN SL 03/22/24 21:00 Morphine Sulfate 2 mg Q30M PRN IV 03/22/24 21:00 03/23/24 14:01 2 MG Clonidine HCl 0.1 mg BID PRN PO 03/22/24 21:00 03/24/24 17:52 0.1 MG Aspirin 81 mg DAILY PO 03/23/24 10:00 03/25/24 09:31 81 MG Atorvastatin Calcium 40 mg DAILY PO 03/23/24 10:00 03/25/24 09:30 40 MG Donepezil HCl 5 mg HS PO 03/22/24 23:45 03/24/24 22:12 5 MG Carbidopa/Levodopa 1 tab TID PO 03/23/24 06:00 03/25/24 16:33 1 TAB Diagnostic Test (Pha) 1 strip ACHS 03/23/24 07:00 03/25/24 16:39 1 STRIP Insulin Human Regular ACHS SC 03/23/24 07:00 03/24/24 17:56 2 UNITS Dextrose 50 ml UD PRN IV 03/23/24 01:15 Ceftriaxone Sodium 50 ml @ 100 mls/hr DAILY@09 IV 03/23/24 09:00 03/25/24 09:24 100 MLS/HR Latanoprost 1 drop HS EACHEYE 03/23/24 22:00 03/24/24 22:12 1 DROP Levothyroxine Sodium 75 mcg QAM PO 03/24/24 07:00 03/25/24 06:24 75 MCG Cilostazol 100 mg DAILY PO 03/24/24 10:00 03/25/24 09:31 100 MG Clopidogrel Bisulfate 75 mg DAILY PO 03/24/24 10:00 03/25/24 09:31 75 MG Amlodipine Besylate 10 mg DAILY PO 03/26/24 10:00 Losartan Potassium 25 mg BID PO 03/25/24 22:00 objective HEENT neck supple no JVD heart regular rate and rhythm S1 plus S2. Lungs fair air movement without rales wheezes. Abdomen soft nontender positive bowel sounds. Extremities no edema positive pulses. Neurologically no focal deficits. laboratory and microbiology Laboratory Tests 03/25/24 06:14 Test 03/25/24 06:14 Range/Units Serum Glucose 84 74-106 mg/dL Assessment/Plan Etiology for her possible syncopal episodes is unclear. MRI of the brain is normal. Patient is not orthostatic. Continue present management. Advised the patient and daughter for trial of low-dose Valium 2.5 mg twice a day given her symptoms/anxiousness. Otherwise continue present management and if she remains stable consider discharge home with outpatient neuro and cardiac continued workup and evaluations as appropriate. Discussed with the patient/daughter as well as nurse at bedside regarding care plan. Plan discussed with: Other JENSEN BAEZ MD Mar 25, 2024 17:21
[2024-03-25] MEDS: LOSARTAN POTASSIUM 25 MG TAB PO SCH (21:50)
[2024-03-26 01:00] VITALS: BP 170/54; PULSE 76; RESP 18; TEMP 97.8; O2SAT 90
[2024-03-26 05:00] VITALS: BP 131/37; PULSE 67; RESP 18; TEMP 97.3; O2SAT 99
[2024-03-26 06:37] LABS: Basophils # (auto) 0 10 ^3/uL (0-0.2); Basophils % (auto) 0.6 % (0.0-2.0); Eosinophils # (auto) 0.2 10 ^3/uL (0-0.8); Eosinophils % (auto) 3.5 % (0.0-7.0); Hematocrit 36.4 % (36.0-46.0); Hemoglobin 12.4 g/dL (12.2-16.2); Lymphocytes # (auto) 1.5 10 ^3/uL (0.4-5.4); Lymphocytes % (auto) 26.7 % (10.0-50.0); Mean Corpuscular Hemoglobin 33.9 pg (28.0-32.0); Mean Corpuscular Volume 99.7 fL (80.0-100.0); Monocytes # (auto) 0.5 10 ^3/uL (0-1.3); Monocytes % (auto) 9.5 % (0.0-12.0); Neutrophils # (auto) 3.3 10 ^3/uL (1.6-8.6); Neutrophils % (auto) 59.7 % (37.0-80.0); Nucleated Red Blood Cells % 0.1 %; Platelet Count (auto) 117 10^3/uL (140-450); Red Blood Cells 3.65 10^6/uL (4.0-5.20); Red Cell Distribution Width 12.1 % (11.8-14.3); White Blood Cell 5.5 10^3/uL (4.4-10.8)
[2024-03-26 07:16] LABS: Calcium 10.1 mg/dL (8.7-10.4); Potassium 4.1 mmol/L (3.5-5.1); Sodium 143 mmol/L (136-145)
[2024-03-26 07:17] LABS: Anion Gap 6 (5-15); Carbon Dioxide 28 mmol/L (20-31)
[2024-03-26 07:22] LABS: Glucose 84 mg/dL (74-106)
[2024-03-26 07:28] LABS: Blood Urea Nitrogen 23 mg/dL (9-23); Chloride 109 mmol/L (98-107)
[2024-03-26 08:00] VITALS: PULSE 66; PULSE 68; RESP 17; O2SAT 96
[2024-03-26] MEDS: amLODIPine BESYLATE 5 MG TAB PO SCH (09:51)
--- NOTE | 2024-03-26 15:03 | DVH ---
MRI CERVICAL SPINE CLINICAL HISTORY: falls/weakness Comparison: None. Technique: Multi planar, multi sequence MR images of the cervical spine without intravenous contrast. FINDINGS: The cervical spinal cord demonstrates normal caliber and signal. The craniocervical junction is withi n normal limits. The vertebral body heights and bone marrow signal are appropriate. There is straight ening of the cervical lordosis. There is disc desiccation throughout with multilevel disc space narro wing, worst at C5-C6. At C2-C3 there is no canal or significant foraminal stenosis. At C3-C4 there is disc bulge and bilateral uncovertebral and facet arthropathy. There is no spinal ca nal stenosis. There is moderate bilateral neural foraminal stenosis, [id number]. At C4-C5 there is disc osteophyte complex eccentric to the left. There is left uncovertebral arthropa thy and advanced left facet arthropathy. There is no spinal canal stenosis. There is severe left and mild right neural foraminal stenosis. At C5-C6 there is posterior disc osteophyte complex and bilateral uncovertebral and facet arthropathy . There is mild spinal canal stenosis mild indentation of the ventral cord. There is severe bilatera l neural foraminal stenosis. At C6-C7 there is posterior disc osteophyte complex and mild bilateral uncovertebral and facet arthro narinder. There is no spinal canal stenosis. There is [id number] left and mild right neural forami nal stenosis. At C7-T1 there is bilateral facet arthropathy. There is no canal stenosis. There is mild bilateral ne ural foraminal stenosis. IMPRESSION: 1. Multilevel degenerative changes in the cervical spine as described by levels above, worst at C5-C6 . HS:Y
[2024-03-26 16:22] VITALS: BP 138/50; PULSE 66; RESP 18; TEMP 36.3; O2SAT 96
--- NOTE | 2024-03-26 22:21 | DVHPN2 ---
Progress Note - Dictate Date Seen: Mar 26, 2024 Medical Necessity Reason Pt with a Central, PICC or Fol: No Subjective Patient was seen and evaluated in follow up. Patient has no new complaints at this time. Patient denies any cardiac symptoms. Patient is cardiac stable for discharge. Telemetry reviewed. vital signs Vital Sign Date Time Temp Pulse Resp B/P (MAP) Pulse Ox O2 Delivery O2 Flow Rate FiO2 03/26/24 09:52 163/80 03/26/24 05:00 97.3 67 18 99 97.3 03/25/24 20:00 Room Air* 0 21 Total Intake and Output 03/25/24 03/25/24 03/26/24 15:00 23:00 07:00 Intake Total 375 ml 300 ml Output Total 300 ml 650 ml Balance 75 ml -350 ml medications Current Medications Medications Dose Ordered Sig/Jorje Route Start Time Stop Time Status Last Admin Dose Admin Docusate Sodium 100 mg BIDPRN PRN PO 03/22/24 21:00 Acetaminophen 650 mg Q6HP PRN PO 03/22/24 21:00 03/24/24 06:42 650 MG Ondansetron HCl 4 mg Q4HP PRN IV 03/22/24 21:00 03/23/24 14:01 4 MG Enoxaparin Sodium 40 mg DAILY SC 03/23/24 10:00 03/23/24 11:58 40 MG Nitroglycerin 0.4 mg Q5MINP PRN SL 03/22/24 21:00 Morphine Sulfate 2 mg Q30M PRN IV 03/22/24 21:00 03/23/24 14:01 2 MG Clonidine HCl 0.1 mg BID PRN PO 03/22/24 21:00 03/24/24 17:52 0.1 MG Aspirin 81 mg DAILY PO 03/23/24 10:00 03/26/24 09:52 81 MG Atorvastatin Calcium 40 mg DAILY PO 03/23/24 10:00 03/26/24 09:52 40 MG Donepezil HCl 5 mg HS PO 03/22/24 23:45 03/25/24 21:50 5 MG Carbidopa/Levodopa 1 tab TID PO 03/23/24 06:00 03/26/24 05:37 1 TAB Diagnostic Test (Pha) 1 strip ACHS 03/23/24 07:00 03/26/24 06:23 1 STRIP Insulin Human Regular ACHS SC 03/23/24 07:00 03/25/24 21:49 3 UNITS Dextrose 50 ml UD PRN IV 03/23/24 01:15 Latanoprost 1 drop HS EACHEYE 03/23/24 22:00 03/25/24 21:49 1 DROP Levothyroxine Sodium 75 mcg QAM PO 03/24/24 07:00 03/26/24 06:23 75 MCG Cilostazol 100 mg DAILY PO 03/24/24 10:00 03/26/24 09:52 100 MG Clopidogrel Bisulfate 75 mg DAILY PO 03/24/24 10:00 03/26/24 09:52 75 MG Amlodipine Besylate 10 mg DAILY PO 03/26/24 10:00 03/26/24 09:51 10 MG Losartan Potassium 25 mg BID PO 03/25/24 22:00 03/26/24 09:52 25 MG objective GENERAL: Awake, alert, oriented. LUNGS: Clear. CARDIOVASCULAR: Heart sounds are good. ABDOMEN: Soft. EXT: Right elbow w/ skin abrasion. laboratory and microbiology Laboratory Tests 03/26/24 06:11 Test 03/26/24 06:11 Range/Units Serum Glucose 84 74-106 mg/dL Problem List Syncope and collapse. Elevated troponin. Elevated D dimer. Uncontrolled hypertension. DM with elevated blood glucose. History of CHF. History of CABG. History of CAD. History of carotid aneurysm. Assessment/Plan Continued all current supportive medical care. Amlodipine, Losartan, Sinemet, Clonidine. Aspirin, Lipitor, Plavix. IV antibiotics as ordered. Morphine for pain management. DVT prophylactics. Additional plan as per the hospital course. Plan discussed with: Patient HOSSEIN GARRETT MD Mar 26, 2024 12:08
--- NOTE | 2024-03-27 11:29 | DVHDS2 ---
Discharge Summary Date of Admission Mar 22, 2024 at 20:58 Date of Discharge: Mar 26, 2024 Labs/Diagnostic Data: Laboratory Results Test 03/26/24 06:11 03/26/24 06:10 03/23/24 08:10 03/22/24 18:49 White Blood Count 5.5 10^3/uL (4.4-10.8) Red Blood Count 3.65 10^6/uL (4.0-5.20) Hemoglobin 12.4 g/dL (12.2-16.2) Hematocrit 36.4 % (36.0-46.0) Mean Corpuscular Volume 99.7 fL (80.0-100.0) Mean Corpuscular Hemoglobin 33.9 pg (28.0-32.0) Mean Corpuscular Hemoglobin Concent 34.0 g/dL (32.0-36.0) Red Cell Distribution Width 12.1 % (11.8-14.3) Platelet Count 117 10^3/uL (140-450) Mean Platelet Volume 8.0 fL (6.9-10.8) Neutrophils (%) (Auto) 59.7 % (37.0-80.0) Lymphocytes (%) (Auto) 26.7 % (10.0-50.0) Monocytes (%) (Auto) 9.5 % (0.0-12.0) Eosinophils (%) (Auto) 3.5 % (0.0-7.0) Basophils (%) (Auto) 0.6 % (0.0-2.0) Neutrophils # (Auto) 3.3 10 ^3/uL (1.6-8.6) Lymphocytes # (Auto) 1.5 10 ^3/uL (0.4-5.4) Monocytes # (Auto) 0.5 10 ^3/uL (0-1.3) Eosinophils # (Auto) 0.2 10 ^3/uL (0-0.8) Basophils # (Auto) 0 10 ^3/uL (0-0.2) Nucleated Red Blood Cells 0.1 % Sodium Level 143 mmol/L (136-145) Potassium Level 4.1 mmol/L (3.5-5.1) Chloride Level 109 mmol/L (98-107) Carbon Dioxide Level 28 mmol/L (20-31) Anion Gap 6 (5-15) Blood Urea Nitrogen 23 mg/dL (9-23) Creatinine 1.00 mg/dL (0.550-1.02) Glomerular Filtration Rate Calc 58 mL/min (>90) BUN/Creatinine Ratio 23.0 (10.0-20.0) Serum Glucose 84 mg/dL (74-106) Calcium Level 10.1 mg/dL (8.7-10.4) POC Glucose 88 mg/dl (70-106) Troponin I High Sensitivity 45 ng/L (</=34) Urine Color Colorless (Yellow) Urine Clarity Clear (Clear) Urine pH 6.5 (5.0-9.0) Urine Specific [place] 1.008 (1.001-1.035) Urine Protein 1+ (Negative) Urine Ketones Negative (Negative) Urine Blood 2+ /uL (Negative) Urine Nitrite Negative (Negative) Urine Bilirubin Negative (Negative) Urine Urobilinogen Normal mg/dL (Negative) Urine Leukocyte Esterase Negative /uL (Negative) Urine RBC 1 /hpf (0 - 4) Urine Microscopic WBC < 1 /HPF (0-5) Urine Squamous Epithelial Cells Few /hpf (<5) Urine Bacteria None seen /hpf (None Seen) Urine Glucose Normal mg/dL (Normal) Test 03/22/24 17:16 D-Dimer, Quantitative 1.91 mg/L FEU (0.0-0.49) Other Laboratory Tests 03/26/24 06:11 Brief Hx & Hospital Course: 78-year-old female past medical history of CABG, CHF, hypertension, CAD, Carotid aneurysm, controlled DM Presents with the complaints of a witness syncopal episode. Patient also complains of pain to the right elbow And hip as a result of the fall. Also endorsed chest pressure. Patient states she blacked out and fell to the ground. Described as out of body experienced. Patient's daughter reported to the emergency department provider This is the third time this has occurred. Patient endorsed she Was previously diagnosed with a 9 mm carotid aneurysm And awaiting a follow up appointment With vascular. She was also recently diagnosed with the UTI and treated with oral antibiotics. At this time treatment is incomplete. While in the emergency department the patients found to be hypertensive with a blood pressure 206/58. Troponin Level 36/33/49. At this time patient has no complaints of dizziness, Unilateral deficits, headaches, Shortness of breath, Abdominal pain. Patient Is admitted for further evaluation and treatment. She was evaluated by neurologist and wireless internet installer. Patient to telemetry remained normal sinus rhythm. Patient was not orthostatic. Patient was getting out of bed by herself and ambulating without significant difficulty or problems. 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 Echocardiogram did not reveal any acute significant pathology. Ejection fraction noted to be normal. Etiology for her symptoms is unclear. However given a workup in the hospital remained relatively normal and the nondiagnostic she was advised to follow up outpatient with a wireless internet installer for possible Holter/event monitor to rule out any sudden cardiac arrhythmia causing her symptoms. Meantime she was also advised to follow up with the heart and neurologist to further evaluate her symptoms as appropriate. She was advised to take Valium twice a day to help with stress and possible anxiety/panic disorder. Otherwise given the patient was admitted to clinically stable, having had necessary workup and evaluations it was felt she could be safely discharged home with continued outpatient follow up and further evaluation management for her symptoms has a appropriate. I have talked with the patient and her daughter during this hospitalization on multiple occasions regarding her hospital diagnosis, and MRI and the echo results, discharge medications, discharge instructions and follow up plan of care. Patient and daughter verbalized understanding of this and agreed with the discharge care plan. Consults/Reason for consult CONSULTATION REPORT . ................................................................................ ............................................................................... Neuro Consultation Date of Consultation Date: 03/24/24 History of Present Illness History of Present Illness: Mary Coley is a 78 year old female who presents with syncope She notes that she has had her 3rd episode where she was standing, felt her vision go black. She does not notice that everything turns black. Only her arms, head, body turns black. Distal to her knees is normal. The surrounding scenery and things around her are not black. She collapses, she says she cannot control it. She started to tremble and is not sure if she had LOC 02/2024 EEG (HDN) - normal study Assessment and Plan:Mary Coley is a 78 year old female who presents with syncope 1. Syncope - Seen by Dr. Sandoval in 01/2014. 02/2024 EEG was normal. 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 Her episdoes are unusal for seizure or amaurosis fugax. Her episdoes of seeing only her body black (and only from her head to her knees) is unlikely neurological. 03/24 MRI Brain - normal study. 03/23 Carotid ultrasound - N o hemodynamically significant stenosis in the right or left carotid systems. Visually there is moderate right and mild left atherosclerosis at the carotid bulbs. Possible narrowing in the external carotid arteries, [id number]. - Continue supportive care F/U as outpt with neurosurgery and neurology Plan discussed with: Patient LORENZA HUANG MD Mar 24, 2024 14:36 Operations or Procedures MRI CERVICAL SPINE CLINICAL HISTORY: falls/weakness Comparison: None. Technique: Multi planar, multi sequence MR images of the cervical spine without intravenous contrast. FINDINGS: The cervical spinal cord demonstrates normal caliber and signal. The craniocervical junction is within normal limits. The vertebral body heights and bone marrow signal are appropriate. There is straightening of the cervical lordosis. There is disc desiccation throughout with multilevel disc space narrowing, worst at C5-C6. At C2-C3 there is no canal or significant foraminal stenosis. At C3-C4 there is disc bulge and bilateral uncovertebral and facet arthropathy. There is no spinal canal stenosis. There is moderate bilateral neural foraminal stenosis, [id number]. At C4-C5 there is disc osteophyte complex eccentric to the left. There is left uncovertebral arthropathy and advanced left facet arthropathy. There is no spinal canal stenosis. There is severe left and mild right neural foraminal stenosis. At C5-C6 there is posterior disc osteophyte complex and bilateral uncovertebral and facet arthropathy. There is mild spinal canal stenosis mild indentation of the ventral cord. There is severe bilateral neural foraminal stenosis. At C6-C7 there is posterior disc osteophyte complex and mild bilateral uncovertebral and facet arthropathy. There is no spinal canal stenosis. There is [id number] left and mild right neural foraminal stenosis. At C7-T1 there is bilateral facet arthropathy. There is no canal stenosis. There is mild bilateral neural foraminal stenosis. IMPRESSION: 1. Multilevel degenerative changes in the cervical spine as described by levels above, worst at C5-C6. HS:Y : MRI BRAIN HEAD WO CONTRAST HISTORY: syncope COMPARISON: None TECHNIQUE: MRI was performed utilizing multiple appropriate imaging planes and pulse sequences. FINDINGS: SUPRATENTORIAL REGION: No evidence for acute ischemia or intracranial hemorrhage. Scattered ill-defined FLAIR hyperintensities are noted within the bilateral periventricular region, still radiata and subcortical white matter. POSTERIOR FOSSA: Unremarkable. BRAINSTEM: Unremarkable. SELLAR/SUPRASELLAR REGION: Unremarkable. VENTRICLES, CISTERNS, SULCI: Age-appropriate. ORBITS: Unremarkable. PARANASAL SINUSES: Mild ethmoid sinus mucosal thickening. MASTOID AIR CELLS: Unremarkable. VASCULATURE: Unremarkable. BONES/ SOFT TISSUES: Unremarkable. OTHER: None. IMPRESSION: 1. No acute intracranial process identified. 2. Moderate chronic microvascular ischemic changes. : Two-dimensional and M-mode echocardiogram with Doppler and color Doppler. Blood Pressure: 156/57 mmHg INDICATION Syncope Surgery/Intervention Valve Replacement: Type: TAVR RISK FACTORS Height: 5' 6", Weight: 154 DIMENSIONS LVDd 4.5 (3.8-5.7cm) LA (2D) 3.8 (1.9-4.0cm) Aortic Root (2.0- 3.7cm) LVDs 3.2 (2.5-4.0cm) LA (MM) (1.9-4.0cm) Aortic Cusp Exc (1.5- 2.0cm) EF (%) 56.0 (55-70%) Rt. Atrium 3.5 (1.9-4.0cm) Asc. Aorta cm IVSd 1.0 (0.7-1.1cm) RV (D) (1.8-2.4cm) PWd 0.9 (0.7-1.1cm) Mitral Valve Mitral Mitral Stenosis E wave 0.80m/s MV Mean GR. mmHg A wave 0.90m/s MV Peak GR. mmHg E/A ratio 0.9 2D MVA cm2 Aortic Valve Aortic Valve Aortic Stenosis V1 0.50m/s AO Mean GR. 3mmHg V2 1.20m/s AO Peak GR. 6mmHg LVOT Diameter 2.0 (1.8-2.4cm) Doppler PERNELL 1.31cm2 AI P 1/2 Time 377.93ms Pulmonic Valve V2 0.60m/s Conclusion MODERATELY CALCIFIED AORTIC LEAFLETS MILD AORTIC STENOSIS MILD LVH AND MILD LV DIASTOLIC DYSFUNCTION LV EJETION FRACTION IS 65% MODERATE DEGREE MR NO EFFUSION SIGNED BY: HOSSEIN ROLDAN MD SIGNED DATE/TIME: 03/23/24 7202 Condition at Discharge: Stable Final Diagnosis/Problems List Questionable syncopal/near syncopal episode Discharge Disposition: Home Discharge Instruct/Medications Diet: Consistent carbohydrate, Cardiac 2g Na,low cholest Activity: No Restrictions, As Tolerated Activity comment: To use walker with ambulation Follow Up/Referral: Dr. Huang Neurologist, neurosurgeon and wireless internet installer in the next day 2-4 weeks for further evaluation of your episodes with a cardiac event monitor. Medications: Home medications. Advised to take Valium half a tablet (2.5 mg) twice a day in the morning and at bedtime. Continued Medications: Aspirin (Aspir-81) 81 Mg Tab 1 TAB PO DAILY, #30 TAB 5 Refills Cilostazol (Cilostazol) 100 Mg Tab 100 MG PO DAILY, MG Clopidogrel Bisulfate (Plavix) 75 Mg Tab 1 TAB PO DAILY for UNSTABLE ANGINA, #90 TAB 1 Refill Dicyclomine Hcl (Dicyclomine Hcl) 10 Mg Cap 10 MG PO TIDWMEALS, MG Donepezil Hydrochloride (Donepezil Hcl) 5 Mg Tab 1 TAB PO DAILY for COGNITIVE IMPAIRMENT, #30 TAB 5 Refills Furosemide (Lasix) 40 Mg Tab 40 MG PO DAILY for EDEMA, TAB Gabapentin (Gabapentin) 300 Mg Cap 1 CAP PO HS for NEUROPATHY, #90 CAP 5 Refills Glucosamine Sulfate (Glucosamine) 1,000 Mg Cap 1000 MG PO DAILY Latanoprost (Latanoprost) 0.005 % Billie 1 DROP EACHEYE QPM for glaucoma, #7.5 ML 3 Refills Levothyroxine Sodium (Levothyroxine Sodium) 75 Mcg Tab 1 TAB PO DAILY for LOW THYROID, #30 TAB 5 Refills Losartan Potassium (Losartan Potassium) 25 Mg Tab 25 MG PO DAILY for 30 Days, MG Multiple Vitamins W/ Minerals (Centrum Adults) 1 Tab Tab 1 TAB PO DAILY for SUPPLEMENT, TAB Niacinamide (Niacin) 500 Mg Tab 500 MG PO DAILY for SUPPLEMENT, TAB [place]son-3 Fatty Acids (Fish Oil) 1,000 Mg Cap 1000 MG PO Polyethylene Glycol (Miralax 17GM Pwd) 17 Gm Pw 17 GRAMS PO DAILY Discharge Statement: "Patient was advised to return to the ER or call 911 if any headaches, dizziness, shortness of breath, chest pain, abdominal pain, bleeding, fevers, or worsening of medical condition. Patient was counseled about treatment plan, medications, possible side effects, patientverbalized understanding. All questions were answered to the best of my ability. This discharge took greater then 30 minutes in planning, reviewing documentation, counseling the patient, and discussing with other team members." ASSESSMENT ASSESSMENT Assessment Questionable syncopal/near syncopal episode JENSEN BAEZ MD Mar 27, 2024 11:29
== END 2024-03-26 17:15 | disposition home health service (06) | DRG 305 ==
LOC: EDBD 16:53 → ER 16:53 → TELE 20:58 → TELE-CENTR 03-23 17:02 → OVERFLOW 03-25 14:42 → CENTRAL 03-25 14:49 → OVERFLOW 03-26 12:42 → TELE-CENTR 03-26 12:51
PROVIDERS: ADMIT Nurse Practitioner Family; ATTEND Nurse Practitioner Family
DX: I16.0 Hypertensive urgency (principal); S70.01XA Contusion of right hip, initial encounter; E11.65 Type 2 diabetes mellitus with hyperglycemia; I25.10 Atherosclerotic heart disease of native coronary artery without angina pectoris; I11.0 Hypertensive heart disease with heart failure; S50.311A Abrasion of right elbow, initial encounter; S09.8XXA Other specified injuries of head, initial encounter; F03.90 Unspecified dementia, unspecified severity, without behavioral disturbance, psychotic disturbance, mood disturbance, and anxiety; J44.9 Chronic obstructive pulmonary disease, unspecified; I50.9 Heart failure, unspecified; Z82.49 Family history of ischemic heart disease and other diseases of the circulatory system; Z95.1 Presence of aortocoronary bypass graft; Z87.891 Personal history of nicotine dependence; Z90.49 Acquired absence of other specified parts of digestive tract; Z95.2 Presence of prosthetic heart valve; W18.39XA Other fall on same level, initial encounter; Y93.89 Activity, other specified; Y92.89 Other specified places as the place of occurrence of the external cause; Y99.8 Other external cause status
CPT/HCPCS: 36415; 70450; 70551; 71045; 71275; 72141; 73080; 73502; 80048; 81001; 82962; 84484; 85025; 85379; 93005; 93306; 93886; 93970; 97110; 97116; 97163; 99291; G0378; J1815; J2405

== ENCOUNTER 2024-08-10 17:19 | Inpatient (IN) | payer OTHER ==
[~2024-08-10] VITALS: Ht 170.2 cm; Wt 74.0 kg
[~2024-08-10 17:19] MED LIST changes: -AML5T PO; +CILO100T3 PO; +DICY-89 PO; -FEXO-42 PO; +LOSA-533 PO; -PANT40T PO; -POT20T PO; -ROSU20TA56 PO
[2024-08-10 18:16] LABS: Hematocrit 40.4 % (36.0-46.0); Hemoglobin 13.4 g/dL (12.2-16.2); Mean Corpuscular Hemoglobin 32.2 pg (28.0-32.0); Mean Corpuscular Volume 97.0 fL (80.0-100.0); Nucleated Red Blood Cells % 0.1 %
[2024-08-10 18:24] LABS: Chloride 106 mmol/L (98-107); Potassium 4.3 mmol/L (3.5-5.1); Sodium 143 mmol/L (136-145)
[2024-08-10 18:25] LABS: Anion Gap 14 (5-15); Carbon Dioxide 23 mmol/L (20-31)
[2024-08-10 18:26] LABS: Calcium 9.9 mg/dL (8.7-10.4)
[2024-08-10 18:31] LABS: BUN/Creatinine Ratio 17.0 (10.0-20.0); Blood Urea Nitrogen 23 mg/dL (9-23)
--- NOTE | 2024-08-10 18:38 | ED.PDOC ---
HPI (NEURO) HPI Comments 79y F who presents to the ED via EMS for chief complaint of generalized weakness. Per daughter, pt has dementia and states pt called daughter this AM after pt states she felt her brain is working slow and was not feeling like herself and feeling very weak today and was having difficulty recognizing her surroundings. Pt daughter got concerned and came to visit pt and daughter states pt started not to recognize her daughter and became combative with daughter and EMS was called to the scene. Pt was every difficulty to cooperative with EMS but was able to be calmed down and brought to the ED with daughter. Pt in the ED, is alert with stable vitals but is not able to answer questions. Pt daughter states pt had recent had pacemaker placement after having multiple syncopal episodes. Pt been to urgent care 2x this week due to comp laints regarding gastritis. Pt otherwise noted to be distressed in the ED. Chief Complaint: ALOC Time Seen by MD: 17:33 Primary Care Provider: UNKNOWN Information Source: Relative, Emergency Med Personnel Mode of Arrival: EMS Brought in by: EMS Past Medical History PAST MEDICAL HISTORY: Anemia, CAD, CHF, COPD, DM, High Lipids, HTN, Thyroid Surgical History: Appendectomy, CABG, Cholecystectomy CUTTER GRINDER History: No Pertinent CUTTER GRINDER History Family History Family History: Reviewed,noncontributory to illness, Unknown Social History Smoker: Quit Greater Than 1 Year Alcohol: Rarely Drugs: Denies Drug Use Lives In: Home Constitutional: reports: malaise, weakness; denies: chills, diaphoresis, fatigue, fever, sweats, others EENTM: denies: blurred vision, double vision, ear bleeding, ear discharge, ear drainage, ear pain, ear ringing, eye pain, eye redness, hearing loss, mouth pain, mouth swelling, nasal discharge, nose bleeding, nose congestion, nose pain, photophobia, tearing, throat pain, throat swelling, voice changes, others Respiratory: denies: cough, hemoptysis, orthopnea, SOB at rest, shortness of breath, SOB with excertion, stridor, wheezing, others Cardiovascular: denies: chest pain, dizzy spells, diaphoresis, Dyspnea on exertion, edema, irregular heart beat, left arm pain, lightheadedness, palpitations, PND, syncope, others Gastrointestinal: denies: abdomen distended, abdominal pain, blood streaked bowels, constipated, diarrhea, dysphagia, difficulty swallowing, hematemesis, melena, nausea, poor appetite, poor fluid intake, rectal bleeding, rectal pain, vomiting, others Genitourinary: denies: abnormal vagina bleeding, burning, dyspareunia, dysuria, flank pain, frequency, hematuria, incontinence, pain, , vagina discharge, urgency, others Neurological: denies: dizziness, fainting, headache, left sided numbness, left sided weakness, numbness, paresthesia, pre-existing deficit, right sided numbness, right sided weakness, seizure, speech problems, tingling, tremors, weakness, others Musculoskeletal: denies: back pain, gout, joint pain, joint swelling, muscle pain, muscle stiffness, neck pain, others Integumetry: denies: bruises, change in color, change in hair/nails, dryness, laceration, lesions, lumps, rash, wounds, others Allergic/Immunocompromised: denies: Difficulty Healing, Frequent Infections, Hives, Itching, others Hematologic/Lymphatic: denies: anemia, blood clots, easy bleeding, easy bruising, swollen glands, others Endocrine: denies: excessive hunger, excessive sweating, excessive thirst, excessive urination, flushing, intolerance to cold, intolerance to heat, unexplained weight gain, unexplained weight loss, others Psychiatric: denies: anxiety, bipolar disorder, depression, hopeless, panic disorder, schizophrenia, sleepless, suicidal, others Unable to Obtain due to: Dementia All Other Systems: Reviewed and Negative Physical Exam General Appearance: No Apparent Distress, Normal HEENT: Normal ENT Inspection, Pharynx Normal, TMs Normal Neck: Full Range of Motion, Non-Tender, Normal, Normal Inspection Respiratory: Chest Non-Tender, Lungs Clear, No Accessory Muscle Use, No Respiratory Distress, Normal Breath Sounds Cardiovascular: No Edema, No JVD, No Murmur, No Gallop, Normal Peripheral Pulses, Regular Rate/Rhythm Breast Exam: Deferred Gastrointestinal: No Organomegaly, Non Tender, No Pulsatile Mass, Normal Bowel Sounds, Soft Genitalia: Deferred Pelvic: Deferred Rectal: Deferred Extremities: No calf tenderness, Normal capillary refill, Normal inspection, Normal range of motion, Non-tender, No pedal edema Musculoskeletal : Apperance: Normal Neurologic: Alert, top distribution executive II-XII nml as Tested, No Motor Deficits, Normal Affect, Normal Mood, No Sensory Deficits Cerebellar Function: Normal Reflexes: Normal Skin: Dry, Normal Color, Warm Lymphatic: No Adenopathy Was a procedure done? Was a procedure done?: No Differential Diagnosis (SZ) General Weakness: Anemia, CVA, Dehydration, Electrolyte imbalance, Encephalopathy, Hypoglycemia, Hypotension, Hypovolemia, TIA, Other (UTI, metabolic encephalopathy, urosepsios, sepsis) X-Ray, Labs, Meds, VS Vital Signs Date Time Temp Pulse Resp B/P (MAP) Pulse Ox O2 Delivery O2 Flow Rate FiO2 08/10/24 21:00 81 14 154/64 (94) 94 08/10/24 20:43 78 08/10/24 20:00 97.9 77 10 185/73 (110) 96 97.9 08/10/24 19:30 Room Air* 0 21 08/10/24 18:15 97.3 74 16 183/71 (108) 97 97.3 08/10/24 17:42 99.0 79 16 192/84 (120) 98 99.0 08/10/24 17:30 75 Lab Test 08/10/24 21:07 08/10/24 19:09 08/10/24 18:05 Range/Units Troponin I High Sensitivity 2226 *H 456 *H 90 *H </=34 ng/L White Blood Count 6.4 4.4-10.8 10^3/uL Red Blood Count 4.17 4.0-5.20 10^6/uL Hemoglobin 13.4 12.2-16.2 g/dL Hematocrit 40.4 36.0-46.0 % Mean Corpuscular Volume 97.0 80.0-100.0 fL Mean Corpuscular Hemoglobin 32.2 H 28.0-32.0 pg Mean Corpuscular Hemoglobin Concent 33.2 32.0-36.0 g/dL Red Cell Distribution Width 13.2 11.8-14.3 % Platelet Count 143 140-450 10^3/uL Mean Platelet Volume 7.6 6.9-10.8 fL Neutrophils (%) (Auto) 67.7 37.0-80.0 % Lymphocytes (%) (Auto) 20.7 10.0-50.0 % Monocytes (%) (Auto) 5.4 0.0-12.0 % Eosinophils (%) (Auto) 5.5 0.0-7.0 % Basophils (%) (Auto) 0.7 0.0-2.0 % Neutrophils # (Auto) 4.3 1.6-8.6 10 ^3/uL Lymphocytes # (Auto) 1.3 0.4-5.4 10 ^3/uL Monocytes # (Auto) 0.3 0-1.3 10 ^3/uL Eosinophils # (Auto) 0.4 0-0.8 10 ^3/uL Basophils # (Auto) 0 0-0.2 10 ^3/uL Nucleated Red Blood Cells 0.1 % Prothrombin Time 11.3 9.3-11.8 sec Prothrombin Time INR 1.07 0.9-1.15 Activated Partial Thromboplast Time 25.9 24.5-34.5 SEC Sodium Level 143 136-145 mmol/L Potassium Level 4.3 3.5-5.1 mmol/L Chloride Level 106 98-107 mmol/L Carbon Dioxide Level 23 20-31 mmol/L Anion Gap 14 5-15 Blood Urea Nitrogen 23 9-23 mg/dL Creatinine 1.35 H 0.550-1.02 mg/dL Glomerular Filtration Rate Calc 40 >90 mL/min BUN/Creatinine Ratio 17.0 10.0-20.0 Serum Glucose 124 H 74-106 mg/dL Calcium Level 9.9 8.7-10.4 mg/dL B-Type Natriuretic Peptide 378.08 0-100 pg/mL Triglycerides Level 175 H < 150 mg/dL Cholesterol Level 183 < 200 mg/dL LDL Cholesterol 84 < 100 mg/dL HDL Cholesterol 63 H 40-59 mg/dL Microbiology Date/Time Source Procedure Growth Status 08/10/24 18:05 Blood Blood Culture - Final NO GROWTH AFTER 5 DAYS OF INCUBATION. Complete 08/10/24 17:50 Blood Blood Culture - Final NO GROWTH AFTER 5 DAYS OF INCUBATION. Complete Time of 1ST Reevaluation: 18:43 Reevaluation 1ST: Improved Patient Education/Counseling: Other (pt has dementia) Family Education/Counseling: Diagnosis, Treatment Departure 1 Departure Time of Disposition: 18:41 (Patient presents with a an NSTEMI and they came metabolic encephalopathy. We will admit patient for further workup and expert consultation) Impression: Primary Impression: Acute metabolic encephalopathy Additional Impressions: NSTEMI (non-ST elevated myocardial infarction) Generalized weakness Disposition: 09 ADMITTED INPATIENT Admit to: Tele Condition: Guarded e-Prescriptions Dapagliflozin Propanediol (Farxiga) 10 Mg Tab 10 MG PO DAILY, #60 TAB Prov: LESVIA LOPEZ MD 08/15/24 Sacubitril-Valsartan (Entresto 24-26 mg) 1 Tab Tab 1 TAB PO BID for 60 Days, #120 TAB Prov: LESVIA LOPEZ MD 08/15/24 Atorvastatin Calcium (ATORVASTATIN CALCIUM) 20 Mg Tab 40 MG PO HS for 60 Days, #120 TAB Prov: LESVIA LOPEZ MD 08/15/24 Critical Care Note Critical Care Time?: Yes Critical care comment: NSTEMI Authorized and Performed by: Sheryl Churchill MD Total critical care time: Approximately 47 minutes Due to a high probability of clinically significant, life threatening deterioration, the patient required my highest level of preparedness to intervene emergently and I personally spent this critical care time directly and personally managing the patient. This critical care time included obtaining a history; examining the patient; pulse oximetry; ordering and review of studies; arranging urgent treatment with development of a management plan; evaluation of patient's response to treatment; frequent reassessment; and, discussions with other providers. This critical care time was performed to assess and manage the high probability of imminent, life-threatening deterioration that could result in multi-organ failure. It was exclusive of separately billable procedures and treating other patients and teaching time. Please see my other sections and the rest of the note for further information on patient assessment and treatment. Stability Stability form required: No Heart Score Heart Score: Heart Score Response (Comments) Value History Slightly Suspicious 0 EKG Normal 0 Age >65 2 Risk Factors >3 or Hx ASHD 2 Troponin >3 x's Normal limit 2 Total 6 I personally scribed for SHERYL CHURCHILL MD ([email or web address]) on 08/10/24 at 18:38. Electronically submitted by Jamarcus Silva ([email or web address]). I personally scribed for SHERYL CHURCHILL MD ([email or web address]) on 08/10/24 at 18:52. Electronically submitted by Jamarcus Silva ([email or web address]). SHERYL CHURCHILL MD Aug 10, 2024 18:38
[2024-08-10 18:41] LABS: Glucose 124 mg/dL (74-106)
[2024-08-10] MEDS: LORazepam 2MG/ML-1ML VIAL IV ONE (20:23)
--- NOTE | 2024-08-10 21:16 | DVH ---
EXAM: CT HEAD WITHOUT CONTRAST INDICATION: ams TECHNIQUE: CT of the head without intravenous contrast. Radiation Dose Information: CT Dose: CTDI volume is 53.41 mGy. Dose-length product is 964.89 mGy*cm The dose indicators for CT are the volume Computed Tomography (CT) Dose Index (CTDIvol) and the Dose Length Product (DLP), and are measured in units of mGy and mGy-cm, respectively. These indicators are not patient dose, but values generated from the CT scanner acquisition factors. The report includes radiation exposure data for exposures received during this examination. COMPARISON: CT HEAD WITHOUT CONTRAST on DOS: 03/22/24 FINDINGS: There is no evidence of acute intracranial hemorrhage, extra-axial collection, mass effect, midline s hift, herniation or hydrocephalus. The ventricles, sulci and cisterns are age appropriate. The ballard-white differentiation is intact. Patchy periventricular and subcortical white matter hypoattenuation is nonspecific but may be related to small vessel ischemic disease. The visualized paranasal sinuses and mastoid air cells are clear. The surrounding soft tissues and osseous structures are unremarkable. IMPRESSION: 1. No acute intracranial abnormality.
--- NOTE | 2024-08-10 21:25 | DVH ---
Exam: CT CT AB PEL WO CON-NO ORAL OR IV History: abdominal pain Comparison Study: ECIDC on DOS: 03/16/22, CT ABD PELVIS WO CONTRAST on DOS: 02/05/22 TECHNIQUE: Multidetector CT of the abdomen was performed from lung bases to pubic symphysis. Imaging was performed without IV contrast. Axial, coronal and sagittal multiplanar reformats were obtained fr om the axial data set by the technologist. Radiation Dose Information: CT Dose: CTDI volume is 19.68 mGy. Dose-length product is 1119.11 mGy*cm FINDINGS: Evaluation of solid organs is limited due to lack of intravenous contrast use. Findings: Lung Bases: No acute or significant lung base finding. Mildly enlarged heart size. TAVR device in pl y[place] No pleural or pericardial effusion. Liver: The liver is normal in size. No focal lesions. Gallbladder and Biliary Tree: No calcified gallstones seen. Spleen: Unremarkable Pancreas: The pancreas is grossly normal in appearance. Adrenal Glands: Unremarkable Kidneys: Kidneys are grossly normal without calculi or hydronephrosis. 4 cm cyst left kidney. Nonobst ructing 3-4 mm calculus left kidney. 3-4 punctate nonobstructing calculi left kidney. 2 cm cyst upper pole right kidney and several punctate nonobstructing right renal calculi. Bladder: Grossly unremarkable for degree of distention. Bowel: The stomach is grossly normal in appearance. Small bowel and colon are normal in caliber and d istribution. The appendix is not visualized; however, no secondary findings of acute appendicitis id entified. Ascites: Absent Lymphadenopathy: No mesenteric, retroperitoneal or periportal lymphadenopathy. Abdominal Wall and Mesentery: Unremarkable. Vasculature: The visualized abdominal aorta is normal in size and caliber. Evaluation of abdominal a nd pelvic vessels is limited due to lack of intravenous contrast. Pelvic Organs: Unremarkable Musculoskeletal: No aggressive focal bony lesions, acute fractures or dislocation. Osteoarthritic rose nges of both hips Soft tissues: Unremarkable IMPRESSION: 1. Bilateral renal cysts and nonobstructing calculi. 2. No findings of bowel obstruction. 3. No calcified gallstones Radiation optimization: All CT scans at this facility use at least one of these dose optimization matthew hniques: automated exposure control mA and/or kV adjustment per patient size (includes targeted exam s where dose is matched to clinical indication) or iterative reconstruction.
--- NOTE | 2024-08-10 21:28 | DVH ---
CHEST RADIOGRAPH Indication: weakness Technique: Single frontal view of the chest was obtained Comparison: XY CHEST PORTABLE on DOS: 03/22/24, CHEST XRAY 1 VIEW on DOS: 02/05/22, CXR1 on DOS: FINDINGS: Lines and Tubes: None Lungs: No focal consolidation. Pleura: No effusion. No pneumothorax. Cardiomediastinal contours: Heart size is within normal limits. [id number] atherosclerotic naseem cification and uncoiling of the aorta. Midline sternotomy wires noted. Leadless pacemaker is noted overlying the cardiac silhouette. Bones: No acute osseous abnormality. IMPRESSION: No acute cardiopulmonary disease.
[2024-08-10] MEDS ORDERED: HEPARIN DRIP/D5W 100UNITS/ML 250 ML IV SCH (21:45)
[2024-08-10] MEDS ORDERED: HYDROcodone-ACET 5/325MG TAB PO PRN (21:45)
[2024-08-10] MEDS ORDERED: NITROGLYCERIN 0.4 MG SL TAB SL PRN (21:45)
[2024-08-10] MEDS ORDERED: MORPHINE SULFATE INJ 2 MG/ml SYRG IV PRN (21:45)
[2024-08-10] MEDS ORDERED: hydrALAZINE HCL 20 MG/ML VL IV PRN (22:00)
[2024-08-10 22:06] LABS: Cholesterol 183 mg/dL (< 200)
[2024-08-10 22:09] LABS: HDL Cholesterol 63 mg/dL (40-59); Triglycerides 175 mg/dL (< 150)
[2024-08-10 22:39] LABS: INR 1.07 (0.9-1.15); Partial Thromboplastin Time 25.9 SEC (24.5-34.5); Prothrombin Time 11.3 sec (9.3-11.8)
[2024-08-10] MEDS: PANTOPRAZOLE 40 MG/10 ML VIAL INJ IV SCH (22:49)
[2024-08-10] MEDS: GABAPENTIN 300 MG CAP PO SCH (22:49)
[2024-08-10] MEDS: ATORVASTATIN 20 MG TAB PO SCH (22:49)
--- NOTE | 2024-08-10 22:53 | ECG ---
[facility] Test Date: 2024-08-10 Test Time: 20:43:27 Pat Name: GENTRY SOLIS Department: ED Room: 0261D Gender: F Tin Stacker: ALY : 1945 Requested By: SHERYL YODER Order Number: [id number] Reading MD: Nazario Hackett Measurements Intervals [place] Rate: 78 P: 139 WI: 224 QRS: -161 QRSD: 139 T: 12 QT: 397 QTc: 453 Interpretive Statements Sinus or ectopic atrial rhythm Ventricular premature complex Prolonged WI interval Right bundle branch block Lateral infarct, old Minimal ST elevation, inferior leads Electronically Signed On 08-15-2024 9:39:37 PDT by Nazario Hackett Please click the below link to view image of tracing.
[2024-08-10] MEDS: HEPARIN SODIUM (PORCINE) 5000 UNITS/ML 1ML VIAL IV ONE (23:34)
[2024-08-10] MEDS: HEPARIN DRIP/D5W 100UNITS/ML 250 ML IV SCH (23:35)
[2024-08-11] VITALS (34 sets, daily range): BP systolic 108–162; BP diastolic 45–59; PULSE 58–93; RESP 9–19; TEMP 97.6–98; O2SAT 96–100
--- NOTE | 2024-08-11 00:54 | DVHHP2 ---
Admitting Diagnosis: NSTEMI, ALOC History of Present Illness History Source: Family Exam Limitations: Other (ALOC/Dementia) HPI Mrs. Mary Coley is a 79 yo female with a history of Dementia, Anemia, CAD, CHF, COPD, DM, HLD, HTN, Thyroid disease, appendectomy, CABG, pacemaker placement at [facility] per patient daughter, Patient who presents for a chief complaint of generalized weakness. Per daughter, pt has dementia and states pt called daughter yesterday AM after pt states she felt her brain is working slow and was not feeling like herself and feeling very weak today and was having difficulty recognizing her surroundings. Pt daughter got concerned and came to visit pt and daughter states pt started not to recognize her daughter and became combative with daughter and EMS was called to the scene. Pt was every difficulty to cooperative with EMS but was able to be calmed down and brought to the ED with daughter. Pt in the ED, is alert with stable vitals but is not able to answer questions. Pt daughter states pt had recent had pacemaker placement after having multiple syncopal episodes. Pt been to urgent care 2x this week due to complaints regarding gastritis. Pt otherwise noted to be distressed in the ED. Patient denies chest pain, dyspnea, patient with elevated troponin levels, admitted for further evaluation and treatment. Home Meds Reported Medications Dicyclomine Hcl (Dicyclomine Hcl) 10 Mg Cap, 10 MG PO TIDWMEALS, MG 03/22/24 Losartan Potassium (Losartan Potassium) 25 Mg Tab, 25 MG PO DAILY for 30 Days, MG 03/22/24 Cilostazol (Cilostazol) 100 Mg Tab, 100 MG PO DAILY, MG 03/22/24 Glucosamine Sulfate (Glucosamine) 1,000 Mg Cap, 1000 MG PO DAILY 03/16/22 [place]-3 Fatty Acids (Fish Oil) 1,000 Mg Cap, 1000 MG PO 03/16/22 Polyethylene Glycol (MIRALAX 17GM PWD) 17 Gm Pw, 17 GRAMS PO DAILY 03/16/22 Multiple Vitamins W/ Minerals (Centrum Adults) 1 Tab Tab, 1 TAB PO DAILY for SUPPLEMENT, TAB 10/21/21 Gabapentin (Gabapentin) 300 Mg Cap, 1 CAP PO HS for NEUROPATHY, #90 CAP 5 Refills 10/21/21 Levothyroxine Sodium (Levothyroxine Sodium) 75 Mcg Tab, 1 TAB PO DAILY for LOW THYROID, #30 TAB 5 Refills 10/21/21 Niacinamide (NIACIN) 500 Mg Tab, 500 MG PO DAILY for SUPPLEMENT, TAB 10/21/21 Donepezil Hydrochloride (DONEPEZIL HCL) 5 Mg Tab, 1 TAB PO DAILY for COGNITIVE IMPAIRMENT, #30 TAB 5 Refills 10/21/21 Furosemide (Lasix) 40 Mg Tab, 40 MG PO DAILY for EDEMA, TAB 10/21/21 Clopidogrel Bisulfate (Plavix) 75 Mg Tab, 1 TAB PO DAILY for UNSTABLE ANGINA, #90 TAB 1 Refill 10/21/21 Aspirin (Aspir-81) 81 Mg Tab, 1 TAB PO DAILY, #30 TAB 5 Refills 07/13/15 Latanoprost (LATANOPROST) 0.005 % Billie, 1 DROP EACHEYE QPM for glaucoma, #7.5 ML 3 Refills 06/28/15 Past Medical History Cardiac: CAD, CHF, HTN, Hyperlipidemia Pulmonary: COPD Central Nervous System: Dementia GI: No pertinent Hx Hemotology/Oncology: No pertinent Hx Hepatobiliary: No pertinent Hx Psychiatric: No pertinent Hx Musculoskeletal: No pertinent Hx Rheumotologic: No pertinent Hx Infectious Disease: No peritnent Hx ENT: No pertinent Hx Renal/: No pertinent Hx Endocrine: Hypothyroidism, NIDDM Dermatology: No pertinent Hx Past Surgical History: Appendectomy, CABG, Cholecystectomy Patient Family History: Alcoholism G8 FATHER Cancer G8 SISTER Cardiovascular disease G8 MOTHER G8 FATHER Family history: Cardiovascular disease Hypertension G8 FATHER Smoker: No Hx (Negative) Alocohol: None Drugs: None Domestic Violence: Neg Review of Systems Constitutional: Weakness, Other (altered mental status) Ears, Nose, & Throat: No symptom reported Eyes: No symptom reported Pulmonary/Respiratory: No symptom reported Cardiovascular: No symptom reported Gastrointestinal: No symptom reported Genitourinary: No symptom reported Musculoskeletal: No symptom reported Skin: No symptom reported Psychiatric: No symptom reported Endocrine: No symptom reported Hemotologic/Lymphatic: No symptom reported H&P Exam Vital Signs Vital Signs Date Time Temp Pulse Resp B/P (MAP) Pulse Ox O2 Delivery O2 Flow Rate FiO2 08/10/24 22:00 76 15 133/56 (81) 97 08/10/24 20:00 97.9 97.9 08/10/24 19:30 Room Air* 0 21 General Appeara: Well developed, Well nourished, Normal Appearance Head Exam: Normal inspection Neck Exam: Normal inspection, Non-tender, Normal alignment Eye Exam: bilateral eye Normal inspection, bilateral eye PERRL, bilateral eye EOMI Ear Exam: bilateral ear Auricle normal Nasal Exam: Normal inspection Mouth: Normal Inspection Pulmonary/Respiratory: Normal inspection, Normal breath sounds, Chest non- tender, Lungs clear Cardiovascular/Chest: Normal inspection, Regular rate, Normal Rhythm Peripheral Pulses: 2+ dorsalis pedis (R), 2+ dorsalis pedis (L), 2+ Radial (R), 2+ Radial (L) Abdominal Exam: Normal bowel sounds, Soft, No tenderness Back Exam: Normal inspection Legs: bilateral leg non-tender, bilateral leg normal inspection, bilateral leg normal range of motion ULTRASOUND TECHNOLOGIST SONOGRAPHER Exam: Normal hearing, PERRL Neuro/Mental St: Alert, Disoriented Appearance: Appropriate appearance, Impaired insight, Impaired recent memory Eye contact/ Speech: Normal speech Skin Exam: Normal inspection, Normal color, Warm/dry Labs/Xrays Labs Test 08/10/24 21:07 08/10/24 18:05 Range/Units Troponin I High Sensitivity 2226 *H </=34 ng/L White Blood Count 6.4 4.4-10.8 10^3/uL Red Blood Count 4.17 4.0-5.20 10^6/uL Hemoglobin 13.4 12.2-16.2 g/dL Hematocrit 40.4 36.0-46.0 % Mean Corpuscular Volume 97.0 80.0-100.0 fL Mean Corpuscular Hemoglobin 32.2 H 28.0-32.0 pg Mean Corpuscular Hemoglobin Concent 33.2 32.0-36.0 g/dL Red Cell Distribution Width 13.2 11.8-14.3 % Platelet Count 143 140-450 10^3/uL Mean Platelet Volume 7.6 6.9-10.8 fL Neutrophils (%) (Auto) 67.7 37.0-80.0 % Lymphocytes (%) (Auto) 20.7 10.0-50.0 % Monocytes (%) (Auto) 5.4 0.0-12.0 % Eosinophils (%) (Auto) 5.5 0.0-7.0 % Basophils (%) (Auto) 0.7 0.0-2.0 % Neutrophils # (Auto) 4.3 1.6-8.6 10 ^3/uL Lymphocytes # (Auto) 1.3 0.4-5.4 10 ^3/uL Monocytes # (Auto) 0.3 0-1.3 10 ^3/uL Eosinophils # (Auto) 0.4 0-0.8 10 ^3/uL Basophils # (Auto) 0 0-0.2 10 ^3/uL Nucleated Red Blood Cells 0.1 % Prothrombin Time 11.3 9.3-11.8 sec Prothrombin Time INR 1.07 0.9-1.15 Activated Partial Thromboplast Time 25.9 24.5-34.5 SEC Sodium Level 143 136-145 mmol/L Potassium Level 4.3 3.5-5.1 mmol/L Chloride Level 106 98-107 mmol/L Carbon Dioxide Level 23 20-31 mmol/L Anion Gap 14 5-15 Blood Urea Nitrogen 23 9-23 mg/dL Creatinine 1.35 H 0.550-1.02 mg/dL Glomerular Filtration Rate Calc 40 >90 mL/min BUN/Creatinine Ratio 17.0 10.0-20.0 Serum Glucose 124 H 74-106 mg/dL Calcium Level 9.9 8.7-10.4 mg/dL B-Type Natriuretic Peptide 378.08 0-100 pg/mL Triglycerides Level 175 H < 150 mg/dL Cholesterol Level 183 < 200 mg/dL LDL Cholesterol 84 < 100 mg/dL HDL Cholesterol 63 H 40-59 mg/dL Assessment/Plan Problem List: (1) NSTEMI (non-ST elevated myocardial infarction) (2) Altered mental status Plan This is a 79 yo female with history as per HPI who presents to the hospital with generalized weakness, altered mental status. Patient found to have 1. NSTEMI 2. ALOC 3. Chronic hypertension 4. COPD 5. DMT2 6. Hypothyroidism 7. Dementia Plan Admit [facility] Cardiology consultation, 2D echocardiogram, serial troponin levels, Lipid panel, Statin, Heparin drip per [facility] pharmacy protocol PT evaluation Social Service home health evaluation Reconcile home medications continue as needed Analgesic as needed Fall Precautions Discussed all above with patient Daughter Adele at bedside in ED bed 4. Patient daughter verbalized agreement and understanding of care plan. All questions were answered. Discussed with supervising MD. Plan discussed with: Daughter, Other Code Visit Code Visit Total Time (mins): 45 Additional Comments Additional Comments Additional Comments Patient's chart is reviewed and discussed with the nurse practitioner. Patient is seen evaluated and admitted by OIL CHANGE TECHNICIAN this morning. Patient is evaluated by me this afternoon. I agree with her evaluation, documentation, assessment and care plan as outlined. GUILLE ASHER Aug 11, 2024 00:54 JENSEN BAEZ MD Aug 11, 2024 17:09
[2024-08-11 04:59] LABS: Hematocrit 37.4 % (36.0-46.0); Hemoglobin 12.4 g/dL (12.2-16.2); Mean Corpuscular Hemoglobin 32.3 pg (28.0-32.0); Mean Corpuscular Volume 97.0 fL (80.0-100.0); Nucleated Red Blood Cells % 0.1 %
[2024-08-11 05:04] LABS: Potassium 4.0 mmol/L (3.5-5.1)
[2024-08-11 05:05] LABS: Anion Gap 8 (5-15); Carbon Dioxide 29 mmol/L (20-31)
[2024-08-11 05:06] LABS: Calcium 9.6 mg/dL (8.7-10.4)
[2024-08-11 05:10] LABS: Glucose 83 mg/dL (74-106)
[2024-08-11 05:11] LABS: BUN/Creatinine Ratio 14.5 (10.0-20.0); Blood Urea Nitrogen 19 mg/dL (9-23)
[2024-08-11 05:27] LABS: Chloride 109 mmol/L (98-107); Sodium 146 mmol/L (136-145)
[2024-08-11 05:32] LABS: INR 1.08 (0.9-1.15); Prothrombin Time 11.4 sec (9.3-11.8)
[2024-08-11 05:35] LABS: Partial Thromboplastin Time 110.2 SEC (24.5-34.5)
[2024-08-11] MEDS: LEVOTHYROXINE SODIUM 25 MCG TAB PO SCH (07:00)
--- NOTE | 2024-08-11 07:18 | ECG ---
[facility] Test Date: 2024-08-11 Test Time: 02:09:27 Pat Name: GENTRY SOLIS Department: ED Room: 0261D A Gender: F Movement Therapist: : 1945 Requested By: GUILLE ASHER Order Number: [id number] Reading MD: Nazario Hackett Measurements Intervals [place] Rate: 70 P: 215 ID: [id number] QRS: -162 QRSD: 155 T: -29 QT: 414 QTc: 447 Interpretive Statements Sinus or ectopic atrial rhythm Right bundle branch block Abnormal lateral Q waves Electronically Signed On 08-15-2024 9:40:38 PDT by Nazario Hackett Please click the below link to view image of tracing.
--- NOTE | 2024-08-11 08:56 | CONS ---
Pharmacy Clinical Information: PLEASE HOLD HEPARIN DRIP FOR 1 HR, THEN RESUME AT RATE 500 UNITS/HR PER APTT OF 110.2 (SUPRATHERAPEUTIC) NEXT APTT DRAW SCHEDULED FOR 1600 PER RX PROTOCOL UNABLE TO REACH RN TO CONFIRM; WAS TOLD BY PERSON ANSWERING PHONE "WE'RE BUSY WITH A CODE". LALA XIONG PHARMACIST Aug 11, 2024 08:56
[2024-08-11] MEDS ORDERED: NIACINAMIDE 500 MG PO SCH (10:00)
[2024-08-11] MEDS: LOSARTAN POTASSIUM 25 MG TAB PO SCH (10:00)
[2024-08-11] MEDS: Niacin 500mg TAB ER PO SCH (10:00)
[2024-08-11] MEDS: DONEPEZIL HYDROCHLORIDE 5 MG TAB PO SCH (10:16)
[2024-08-11] MEDS: ACETAMINOPHEN 325 MG TAB PO PRN (10:22)
[2024-08-11] MEDS: POLYETHYLENE GLYCOL 17 GM PWDR PO SCH (10:22)
[2024-08-11] MEDS: HEPARIN DRIP/D5W 100UNITS/ML 250 ML IV SCH ×2 (11:00→18:00)
--- NOTE | 2024-08-11 11:47 | DVHCONRES ---
Date Seen: Aug 11, 2024 Resident Creating Document: ASHLEE VERMA RESDIENT History of Present Illness This is 79 year old female past medical history of dementia, coronary artery disease (status post CABG in 2011), aortic stenosis (status post TAVR in 2022 and subsequently patient in 2023), status post pacemaker (leadless single- chamber ventricular pacing, for backup, placed on 30 August 2024), hypothyroidism, hypertension, diet-controlled diabetes mellitus brought to the hospital due to altered mental status and then episode of loss of consciousness. Per patient's daughter, yesterday the patient get more confused and altered, which prompted this visit. She was also complaining of the epigastric pain periods she denies fever, chest pain, shortness of breath, or any recent sick contacts/or chest trauma. Cardiology consulted due to arrange troponin. PMHx: dementia, coronary artery disease (status post CABG in 2011), aortic stenosis (status post TAVR in 2022 and subsequently patient in 2023), status post pacemaker (leadless single-chamber ventricular pacing, for backup, placed on 30 August 2024), hypothyroidism, hypertension, diet-controlled diabetes mellitus PSHx: Endarterectomy left-sided (2 to significant), CABG (in 2012) pacemaker in July 2024 Home medication: Aspirin, cilostazol, clopidogrel, donepezil, Lasix 40 mg, levothyroxine 25, losartan 25, atorvastatin 40, gabapentin 300, carbidopa/levodopa Allergic history: Hydralazine Morphine Patient seen and examined at the bedside. Patient is feeling better since admission, currently the patient is alert, oriented and has no active complaint. Family History: Alcoholism G8 FATHER Cancer G8 SISTER Cardiovascular disease G8 MOTHER G8 FATHER Family history: Cardiovascular disease Hypertension G8 FATHER Allergies: Coded Allergies: Morphine (Verified Allergy, Unknown, 08/11/24) Hydralazine (Verified Adverse Reaction, Severe, respiratory distress, 03/23/24) Home Meds Reported Medications Dicyclomine Hcl (Dicyclomine Hcl) 10 Mg Cap, 10 MG PO TIDWMEALS, MG 03/22/24 Losartan Potassium (Losartan Potassium) 25 Mg Tab, 25 MG PO DAILY for 30 Days, MG 03/22/24 Cilostazol (Cilostazol) 100 Mg Tab, 100 MG PO DAILY, MG 03/22/24 Glucosamine Sulfate (Glucosamine) 1,000 Mg Cap, 1000 MG PO DAILY 03/16/22 [place]-3 Fatty Acids (Fish Oil) 1,000 Mg Cap, 1000 MG PO 03/16/22 Polyethylene Glycol (MIRALAX 17GM PWD) 17 Gm Pw, 17 GRAMS PO DAILY 03/16/22 Multiple Vitamins W/ Minerals (Centrum Adults) 1 Tab Tab, 1 TAB PO DAILY for SUPPLEMENT, TAB 10/21/21 Gabapentin (Gabapentin) 300 Mg Cap, 1 CAP PO HS for NEUROPATHY, #90 CAP 5 Refills 10/21/21 Levothyroxine Sodium (Levothyroxine Sodium) 75 Mcg Tab, 1 TAB PO DAILY for LOW THYROID, #30 TAB 5 Refills 10/21/21 Niacinamide (NIACIN) 500 Mg Tab, 500 MG PO DAILY for SUPPLEMENT, TAB 10/21/21 Donepezil Hydrochloride (DONEPEZIL HCL) 5 Mg Tab, 1 TAB PO DAILY for COGNITIVE IMPAIRMENT, #30 TAB 5 Refills 10/21/21 Furosemide (Lasix) 40 Mg Tab, 40 MG PO DAILY for EDEMA, TAB 10/21/21 Clopidogrel Bisulfate (Plavix) 75 Mg Tab, 1 TAB PO DAILY for UNSTABLE ANGINA, #90 TAB 1 Refill 10/21/21 Aspirin (Aspir-81) 81 Mg Tab, 1 TAB PO DAILY, #30 TAB 5 Refills 07/13/15 Latanoprost (LATANOPROST) 0.005 % Billie, 1 DROP EACHEYE QPM for glaucoma, #7.5 ML 3 Refills 06/28/15 Current Medications Current Medications Medications (Trade) Dose Ordered Sig/Jorje Route PRN Reason Start Time Stop Time Status Last Admin Heparin Sodium/ Dextrose 250 ml @ 8 mls/hr Q24H IV 08/10/24 23:00 08/11/24 08:34 DC 08/10/24 23:35 Heparin Sodium/ Dextrose 250 ml @ 8.724 mls/ hr Q24H IV 08/10/24 21:45 08/10/24 22:54 DC Atorvastatin Calcium (Lipitor) 40 mg HS PO 08/10/24 22:00 08/10/24 22:49 Acetaminophen (Tylenol Tablet) 650 mg Q6HPRN PRN PO PAIN SCALE 1-3 OR TEMP>100.4 08/10/24 21:45 08/11/24 10:22 Acetaminophen/ Hydrocodone Bitart ([place] 5/325MG Tab) 1 tab Q6HPRN PRN PO PAIN SCALE 1 THRU 6 08/10/24 21:45 Pantoprazole Sodium (Protonix) 40 mg DAILY IV 08/10/24 21:45 08/11/24 10:15 Nitroglycerin (Ntrostat Sublingual) 0.4 mg Q5MINP PRN SL FOR CHEST PAIN 08/10/24 21:45 Morphine Sulfate 2 mg Q30M PRN IV FOR CHEST PAIN 08/10/24 21:45 Donepezil HCl (Aricept Tablet) 5 mg DAILY PO 08/11/24 10:00 08/11/24 10:16 Latanoprost (Xalatan) 1 drop QPM EACHEYE 08/11/24 18:00 Losartan Potassium (Cozaar Tablet) 25 mg DAILY PO 08/11/24 10:00 Levothyroxine Sodium (Synthroid Tablet) 75 mcg DAILY@0700 PO 08/11/24 07:00 Patient Own Medication 500 mg DAILY PO 08/11/24 10:00 UNV Polyethylene Glycol (Miralax 17GM Powder) 17 gm DAILY PO 08/11/24 10:00 Gabapentin (Neurontin Capsule) 300 mg HS PO 08/10/24 22:00 08/10/24 22:49 Hydralazine HCl (Apresoline Injection) 10 mg Q6HP PRN IV SBP>160 or DBP>105 08/10/24 22:00 Heparin Sodium/ Dextrose 250 ml @ 5 mls/hr Q24H IV 08/11/24 09:45 Niacinamide 500 mg DAILY PO 08/11/24 10:00 Vital Signs Vital Signs Date Time Temp Pulse Resp B/P (MAP) Pulse Ox O2 Delivery O2 Flow Rate FiO2 08/11/24 11:01 63 14 133/48 (76) 100 08/11/24 08:00 Nasal Cannula* 2 28 08/11/24 08:00 97.8 97.8 Physical Exam General Appearance: Alert, Oriented X3, Cooperative, No acute distress HEENT: Atraumatic, PERRLA, EOMI, Mucous membrane moist/pink Respiratory: Clear to auscultation, Normal air movement Cardiovascular: Regular rate, Normal S1, Normal S2, No murmurs, no chest wall tenderness Abdominal: Normal bowel sounds, Soft, No tenderness, No hepatospenomegaly, No masses Extremities: No clubbing, No cyanosis, No edema, Normal pulses, No tenderness/swelling Skin: No rashes, No breakdown, No significant lesion Neuro: Normal gait, Normal speech, Strength at 5/5 X4 ext, Normal tone, Sensation intact, Cranial nerves 3-12 NL, Reflexes 2+ Psych/Mental Status: Mental status NL, Mood NL Labs/Diagnostic Data Labs Test 08/11/24 04:41 08/10/24 18:05 Range/Units White Blood Count 6.5 4.4-10.8 10^3/uL Red Blood Count 3.85 L 4.0-5.20 10^6/uL Hemoglobin 12.4 12.2-16.2 g/dL Hematocrit 37.4 36.0-46.0 % Mean Corpuscular Volume 97.0 80.0-100.0 fL Mean Corpuscular Hemoglobin 32.3 H 28.0-32.0 pg Mean Corpuscular Hemoglobin Concent 33.3 32.0-36.0 g/dL Red Cell Distribution Width 13.3 11.8-14.3 % Platelet Count 123 L 140-450 10^3/uL Mean Platelet Volume 7.6 6.9-10.8 fL Neutrophils (%) (Auto) 57.8 37.0-80.0 % Lymphocytes (%) (Auto) 24.0 10.0-50.0 % Monocytes (%) (Auto) 10.5 0.0-12.0 % Eosinophils (%) (Auto) 6.8 0.0-7.0 % Basophils (%) (Auto) 0.9 0.0-2.0 % Neutrophils # (Auto) 3.7 1.6-8.6 10 ^3/uL Lymphocytes # (Auto) 1.6 0.4-5.4 10 ^3/uL Monocytes # (Auto) 0.7 0-1.3 10 ^3/uL Eosinophils # (Auto) 0.4 0-0.8 10 ^3/uL Basophils # (Auto) 0.1 0-0.2 10 ^3/uL Nucleated Red Blood Cells 0.1 % Prothrombin Time 11.4 9.3-11.8 sec Prothrombin Time INR 1.08 0.9-1.15 Activated Partial Thromboplast Time 110.2 *H 24.5-34.5 SEC Sodium Level 146 H 136-145 mmol/L Potassium Level 4.0 3.5-5.1 mmol/L Chloride Level 109 H 98-107 mmol/L Carbon Dioxide Level 29 20-31 mmol/L Anion Gap 8 5-15 Blood Urea Nitrogen 19 9-23 mg/dL Creatinine 1.31 H 0.550-1.02 mg/dL Glomerular Filtration Rate Calc 42 >90 mL/min BUN/Creatinine Ratio 14.5 10.0-20.0 Serum Glucose 83 74-106 mg/dL Calcium Level 9.6 8.7-10.4 mg/dL Troponin I High Sensitivity 3466 *H </=34 ng/L B-Type Natriuretic Peptide 378.08 0-100 pg/mL Triglycerides Level 175 H < 150 mg/dL Cholesterol Level 183 < 200 mg/dL LDL Cholesterol 84 < 100 mg/dL HDL Cholesterol 63 H 40-59 mg/dL Assessment Acute metabolic encephalopathy, likely due to myocardial infarction NSTEMI, likely type 1 History of coronary artery disease status post CABG Hypertension Dyslipidemia Hypothyroidism Dementia MERA on CKD Diet-controlled diabetes mellitus Status post pacemaker, seated at 50 per minute has been back up * EKGs shows, sinus rhythm with RBBB, grade 1 heart block, extreme right axis deviation with no significant ST or T-wave changes * Troponin I is raised, up trending * Chest x-ray shows cardiomegaly * Pacemaker interrogation performed, normal functioning Plan/Recommendation (Case discussed with Dr. Hackett) * Continue conservative management including aspirin, Plavix, Lasix 40 mg and heparin drip * Keep K above 4, and Mag above 2 * Considering patient's current status, comorbidities and the patient's family preference, she can be transferred to the [facility] (as per patient's family her primary podiatrist assistant is located there) for further management * Check echocardiogram * Rest of plan, per primary team Thank you for allowing us to participate in this patient's care. Please call if you have any questions or concerns. Plan discussed with: Patient, Daughter, Other (RN) ASHLEE VERAM Aug 11, 2024 11:47
[2024-08-11] MEDS ORDERED: HALOPERIDOL LACTATE 5 MG/ML INJ VIAL IM PRN (13:00)
[2024-08-11] MEDS: SODIUM CHLORIDE 0.9% 1,000 ML IV SCH (14:30)
[2024-08-11] MEDS: FUROSEMIDE 40 MG/4 ML VIAL IV ONE (14:44)
[2024-08-11] MEDS: CLOPIDOGREL BISULFATE 75 MG TAB PO ONE (14:45)
[2024-08-11 15:17] LABS: Amphetamine Screen, Urine Neg (NEGATIVE)
[2024-08-11 15:21] LABS: Barbiturate Scree,Urine Neg (NEGATIVE); Benzodiazephine Screen, Urine Pos (NEGATIVE); Cannabinoid Screen, Urine Neg (NEGATIVE); Cocaine Screen, Urine Neg (NEGATIVE); Opiate Scree,Urine Neg (NEGATIVE); Phencyclidine Screen, Urine Neg (NEGATIVE)
[2024-08-11 15:42] LABS: Urine Protein, UAD 1+ (Negative)
--- NOTE | 2024-08-11 16:43 | DVHSR ---
APPROVED REPORT EXAM: Two-dimensional and M-mode echocardiogram with Doppler and color Doppler. Blood Pressure: 122/45 mmHg INDICATION NSTEMI Surgery/Intervention Valve Replacement: Type: AV RISK FACTORS Height: 5'7", Weight: 154 DIMENSIONS LVDd5.0 (3.8-5.7cm)LA (2D)4.0 (1.9-4.0cm)Aortic Root (2.0-3.7cm) LVDs3.3 (2.5-4.0cm)LA (MM) (1.9-4.0cm)Aortic Cusp Exc (1.5-2.0cm) EF (%) 50.0 (55-70%)Rt. Atrium (1.9-4.0cm)Asc. Aorta cm IVSd0.9 (0.7-1.1cm)RV (D) (1.8-2.4cm) PWd1.0 (0.7-1.1cm) Mitral Valve MitralMitral Stenosis E wave0.92m/sMV Mean GR.mmHg A wave0.86m/sMV Peak GR.mmHg E/A ratio1.12D MVAcm2 DECEL [id number] 1/2 Timems Aortic Valve Aortic ValveAortic Stenosis V10.68m/Jaguar Mean GR.3mmHg V21.25m/Jaguar Peak GR.6mmHg LVOT Diameter2.2 (1.8-2.4cm)Doppler AVA2.07cm2 Pulmonic Valve V20.66m/s Tricuspid Valve TR Velocity3.27m/s [id number] Other Information Quality : Technically LimitedRhythm : Technically limited study due to body habitus. Conclusion lvef 45% apex is hypokinetic mild to moderate LVH RV enlarged biatrial enlargement s/p TAVR_- gradient across is not very elevated, about 6 mmhg, no sig AI noted, not well visualzied moderate MAC, mild mitral regurg mild tricuspid regurg PASP >60 mmhg, moderate pulm htn
[2024-08-11 17:32] LABS: INR 1.14 (0.9-1.15); Partial Thromboplastin Time 40.4 SEC (24.5-34.5); Prothrombin Time 11.9 sec (9.3-11.8)
[2024-08-11] MEDS: LATANOPROST 0.005 % OPTH(EYE) SOL 2.5ML EACHEYE SCH (17:51)
--- NOTE | 2024-08-11 18:02 | CONS ---
Pharmacy Clinical Information: INCREASE HEPARIN DRIP RATE TO 700 UNITS/HR PER APTT OF 40.4 (SUBTHERAPEUTIC) NEXT APTT DRAW SCHEDULED FOR 08/12 @0000 PER RX PROTOCOL LALA XIONG PHARMACIST Aug 11, 2024 18:02
[2024-08-12] VITALS (26 sets, daily range): BP systolic 98–173; BP diastolic 33–87; PULSE 59–96; RESP 11–28; TEMP 96.7–98; O2SAT 93–100
[2024-08-12 00:46] LABS: INR 1.06 (0.9-1.15); Partial Thromboplastin Time 59.7 SEC (24.5-34.5); Prothrombin Time 11.2 sec (9.3-11.8)
[2024-08-12 05:59] LABS: Hematocrit 37.6 % (36.0-46.0); Hemoglobin 13.0 g/dL (12.2-16.2); Mean Corpuscular Hemoglobin 33.1 pg (28.0-32.0); Mean Corpuscular Volume 96.0 fL (80.0-100.0); Nucleated Red Blood Cells % 0.1 %
[2024-08-12 06:12] LABS: INR 1.07 (0.9-1.15); Prothrombin Time 11.3 sec (9.3-11.8)
[2024-08-12 06:22] LABS: Anion Gap 10 (5-15); Calcium 9.3 mg/dL (8.7-10.4); Carbon Dioxide 25 mmol/L (20-31); Potassium 3.7 mmol/L (3.5-5.1); Sodium 144 mmol/L (136-145)
[2024-08-12 06:23] LABS: Partial Thromboplastin Time 91.9 SEC (24.5-34.5)
[2024-08-12 06:28] LABS: BUN/Creatinine Ratio 13.3 (10.0-20.0); Blood Urea Nitrogen 16 mg/dL (9-23); Glucose 81 mg/dL (74-106)
[2024-08-12 06:40] LABS: Chloride 109 mmol/L (98-107)
[2024-08-12] MEDS: HEPARIN DRIP/D5W 100UNITS/ML 250 ML IV SCH ×3 (07:25→22:30)
--- NOTE | 2024-08-12 07:26 | ECG ---
[facility] Test Date: 2024-08-11 Test Time: 05:50:06 Pat Name: GENTRY SOLIS Department: Room: 0261D A Gender: F Public Affairs Specialist: NICHOLAS Sainz RN : 1945 Requested By: GUILLE ASHER Order Number: [id number] Reading MD: Nazario Hackett Measurements Intervals Post Rate: 61 P: 73 MN: 218 QRS: 219 QRSD: 158 T: -53 QT: 438 QTc: 440 Interpretive Statements Sinus rhythm with 1st degree AV block Right bundle branch block Anteroseptal infarct , age undetermined T wave abnormality, consider lateral ischemia Electronically Signed On 08-15-2024 9:32:08 PDT by Nazario Hackett Please click the below link to view image of tracing.
[2024-08-12] MEDS: FAMOTIDINE 20 MG TAB PO SCH (09:43)
[2024-08-12] MEDS: FUROSEMIDE 40 MG/4 ML VIAL IV SCH (09:44)
[2024-08-12] MEDS: CLOPIDOGREL BISULFATE 75 MG TAB PO SCH (10:39)
--- NOTE | 2024-08-12 13:59 | DVHPN2 ---
Progress Note Date Seen: Aug 12, 2024 Resident Creating Document: ASHLEE VERMA PETE Has the PT tested + for MRSA If YES, has PT been informed?: No Medical Necessity Reason Pt with a Central, PICC or Fol: No Subjective Review of Systems Patient seen and examined at the bedside. Patient is feeling better since admission. Patient reports: No new complaints, Feels better Changes from previous H/P or p: Changes Objective vital signs Vital Sign Date Time Temp Pulse Resp B/P (MAP) Pulse Ox O2 Delivery O2 Flow Rate FiO2 08/12/24 12:00 63 08/12/24 11:00 11 125/54 (77) 98 08/12/24 08:00 Nasal Cannula* 2 28 08/12/24 08:00 98.0 98.0 Total Intake and Output 08/11/24 08/11/24 08/12/24 15:00 23:00 07:00 Intake Total 109 ml 552 ml 776 ml Output Total 500 ml 1000 ml Balance 109 ml 52 ml -224 ml medications Current Medications Medications Dose Ordered Sig/Jorje Route Start Time Stop Time Status Last Admin Dose Admin Atorvastatin Calcium 40 mg HS PO 08/10/24 22:00 08/11/24 21:48 40 MG Acetaminophen 650 mg Q6HPRN PRN PO 08/10/24 21:45 08/12/24 07:01 650 MG Acetaminophen/ Hydrocodone Bitart 1 tab Q6HPRN PRN PO 08/10/24 21:45 Nitroglycerin 0.4 mg Q5MINP PRN SL 08/10/24 21:45 Morphine Sulfate 2 mg Q30M PRN IV 08/10/24 21:45 Donepezil HCl 5 mg DAILY PO 08/11/24 10:00 08/12/24 09:43 5 MG Latanoprost 1 drop QPM EACHEYE 08/11/24 18:00 08/11/24 17:51 1 DROP Losartan Potassium 25 mg DAILY PO 08/11/24 10:00 Levothyroxine Sodium 75 mcg DAILY@0700 PO 08/11/24 07:00 08/12/24 06:51 75 MCG Patient Own Medication 500 mg DAILY PO 08/11/24 10:00 UNV Polyethylene Glycol 17 gm DAILY PO 08/11/24 10:00 Gabapentin 300 mg HS PO 08/10/24 22:00 08/11/24 21:48 300 MG Hydralazine HCl 10 mg Q6HP PRN IV 08/10/24 22:00 Niacinamide 500 mg DAILY PO 08/11/24 10:00 Famotidine 20 mg DAILY PO 08/12/24 10:00 08/12/24 09:43 20 MG Sodium Chloride 1,000 ml @ 60 mls/hr [id number] IV 08/11/24 12:30 08/12/24 06:51 60 MLS/HR Haloperidol Lactate 2.5 mg Q8HP PRN IM 08/11/24 13:00 Clopidogrel Bisulfate 75 mg DAILY PO 08/12/24 10:00 08/12/24 10:39 75 MG Furosemide 40 mg DAILY IV 08/12/24 10:00 08/12/24 09:44 40 MG Heparin Sodium/ Dextrose 250 ml @ 4 mls/hr Q24H IV 08/12/24 07:25 08/12/24 07:25 4 MLS/HR Examination General Appearance: Alert, Oriented X3, Cooperative, No acute distress HEENT: Atraumatic, PERRLA, EOMI, Mucous membrane moist/pink Respiratory: Clear to auscultation, Normal air movement Cardiovascular: Regular rate, Normal S1, Normal S2, No murmurs, no chest wall tenderness Abdominal: Normal bowel sounds, Soft, No tenderness, No hepatospenomegaly, No masses Extremities: No clubbing, No cyanosis, No edema, Normal pulses, No tenderness/swelling Skin: No rashes, No breakdown, No significant lesion Neuro: Normal gait, Normal speech, Strength at 5/5 X4 ext, Normal tone, Sensation intact, Cranial nerves 3-12 NL, Reflexes 2+ Psych/Mental Status: Mental status NL, Mood NL laboratory and microbiology Laboratory Tests 08/12/24 05:18 Test 08/12/24 05:18 Range/Units Serum Glucose 81 74-106 mg/dL Microbiology Date/Time Source Procedure Growth Status 08/11/24 05:00 Nose MRSA Screen - Final Complete 08/10/24 18:05 Blood Blood Culture - Preliminary NO GROWTH AFTER 24 HOURS OF INCUBATION. Resulted Labs and/or images reviewed: Labs reviewed by me, Image(s) reviewed by me Problem List/Assessment/Plan Problem List/Assessment/Plan Acute metabolic encephalopathy, likely due to myocardial infarction NSTEMI, likely type 1 History of coronary artery disease status post CABG Hypertension Dyslipidemia Hypothyroidism Dementia MERA on CKD Diet-controlled diabetes mellitus Status post pacemaker, seated at 50 per minute has been back up * EKGs shows, sinus rhythm with RBBB, grade 1 heart block, extreme right axis deviation with no significant ST or T-wave changes * Troponin I is raised, up trending * Chest x-ray shows cardiomegaly * Pacemaker interrogation performed, normal functioning * Echo shows LVEF 45% with hypokinetic apex, [id number] LVH with RV enlargement Plan/Recommendation (Case discussed with Dr. Hackett) * Continue conservative management including aspirin, Plavix, Lasix 40 mg and heparin drip * Planned for left heart catheterization for tomorrow morning * Keep K above 4, and Mag above 2 * Considering patient's current status, comorbidities and the patient's family preference, she can be transferred to the [facility] (as per patient's family her primary lead software development engineer is located there) for further management * Rest of plan, per primary team Risk and benefits of left heart catheterization discussed with the patient and patient's family, all questions and concerns were addressed. Thank you for allowing us to participate in this patient's care. Please call if you have any questions or concerns. Plan discussed with: Patient, Other (RN) My Orders My Orders Orders - ASHLEE VERMA Procedure Category Date Status Time Furosemide Injection PHA 08/12/24 In Process (Lasix Injection) 10:00 Cardiac DIET 08/11/24 Transmitted Diet-2gna,Lofat,Lochol Dinner Dietary Evaluation Review Comments: 1) Glucerna 240ml TID if PO intake <50% 2) Monitor PO intake, lab values, wt trend Expected Outcomes/Goals: To meet 75% estimmated needs FU 3-5 days ASHLEE VERMA RESDICATHY Aug 12, 2024 13:59
[2024-08-12 14:13] LABS: INR 1.02 (0.9-1.15); Partial Thromboplastin Time 41.8 SEC (24.5-34.5); Prothrombin Time 10.8 sec (9.3-11.8)
--- NOTE | 2024-08-12 14:31 | CONS ---
Pharmacy Clinical Information: INCREASE HEPARIN DRIP RATE TO 600 UNITS/HR PER APTT OF 41.8 NEXT APTT DRAW SCHEDULED FOR 2100 PER RX PROTOCOL LALA XIONG PHARMACIST Aug 12, 2024 14:31
[2024-08-12] MEDS: POTASSIUM EFFERVESENT TAB 25 MEQ PO ONE (14:33)
--- NOTE | 2024-08-12 15:53 | DVHPN2 ---
Progress Note - Dictate Date Seen: Aug 12, 2024 Has the PT tested + for MRSA If YES, has PT been informed?: No Medical Necessity Reason Pt with a Central, PICC or Fol: No Subjective Clinically stable. Complains of some reflux for which apparently she takes Protonix twice a day at home. Family is at bedside. Scheduled for coronary angiogram by Dr. Hackett for tomorrow. vital signs Vital Sign Date Time Temp Pulse Resp B/P (MAP) Pulse Ox O2 Delivery O2 Flow Rate FiO2 08/12/24 14:00 65 20 124/41 (68) 97 08/12/24 08:00 Nasal Cannula* 2 28 08/12/24 08:00 98.0 98.0 Total Intake and Output 08/11/24 08/11/24 08/12/24 15:00 23:00 07:00 Intake Total 109 ml 552 ml 776 ml Output Total 500 ml 1000 ml Balance 109 ml 52 ml -224 ml medications Current Medications Medications Dose Ordered Sig/Jorje Route Start Time Stop Time Status Last Admin Dose Admin Atorvastatin Calcium 40 mg HS PO 08/10/24 22:00 08/11/24 21:48 40 MG Acetaminophen 650 mg Q6HPRN PRN PO 08/10/24 21:45 08/12/24 07:01 650 MG Acetaminophen/ Hydrocodone Bitart 1 tab Q6HPRN PRN PO 08/10/24 21:45 Nitroglycerin 0.4 mg Q5MINP PRN SL 08/10/24 21:45 Morphine Sulfate 2 mg Q30M PRN IV 08/10/24 21:45 Donepezil HCl 5 mg DAILY PO 08/11/24 10:00 08/12/24 09:43 5 MG Latanoprost 1 drop QPM EACHEYE 08/11/24 18:00 08/11/24 17:51 1 DROP Losartan Potassium 25 mg DAILY PO 08/11/24 10:00 Levothyroxine Sodium 75 mcg DAILY@0700 PO 08/11/24 07:00 08/12/24 06:51 75 MCG Patient Own Medication 500 mg DAILY PO 08/11/24 10:00 UNV Polyethylene Glycol 17 gm DAILY PO 08/11/24 10:00 Gabapentin 300 mg HS PO 08/10/24 22:00 08/11/24 21:48 300 MG Hydralazine HCl 10 mg Q6HP PRN IV 08/10/24 22:00 Niacinamide 500 mg DAILY PO 08/11/24 10:00 Sodium Chloride 1,000 ml @ 60 mls/hr [id number] IV 08/11/24 12:30 08/12/24 06:51 60 MLS/HR Haloperidol Lactate 2.5 mg Q8HP PRN IM 08/11/24 13:00 Clopidogrel Bisulfate 75 mg DAILY PO 08/12/24 10:00 08/12/24 10:39 75 MG Furosemide 40 mg DAILY IV 08/12/24 10:00 08/12/24 09:44 40 MG Heparin Sodium/ Dextrose 250 ml @ 6 mls/hr Q24H IV 08/12/24 14:30 08/12/24 14:42 6 MLS/HR Pantoprazole Sodium 40 mg BID PO 08/12/24 22:00 objective Comfortable in bed without distress. Alert awake oriented x3. Heart S1 plus S2 regular rate and rhythm. Lungs fair air movement without wheezing. Abdomen soft positive bowel sounds. Extremities no edema. laboratory and microbiology Laboratory Tests 08/12/24 05:18 Test 08/12/24 05:18 Range/Units Serum Glucose 81 74-106 mg/dL Assessment/Plan Continue heparin drip. Start Protonix p.o. b.i.d.. NPO after midnight. Proceed with a coronary angiogram tomorrow. Discussed with the family at bedside along with the nurse at bedside regarding care plan and risks of contrast induced nephropathy as well. Continue gentle IV hydration. Problems(with codes): (1) NSTEMI (non-ST elevated myocardial infarction) (2) Altered mental status (3) CKD (chronic kidney disease) stage 3, GFR 30-59 ml/min (4) Chest pain Dietary Evaluation Review Comments: 1) Glucerna 240ml TID if PO intake <50% 2) Monitor PO intake, lab values, wt trend Expected Outcomes/Goals: To meet 75% estimmated needs FU 3-5 days Plan discussed with: Patient, Daughter JENSEN BAEZ MD Aug 12, 2024 15:53
[2024-08-12 21:40] LABS: INR 1.04 (0.9-1.15); Partial Thromboplastin Time 45.6 SEC (24.5-34.5); Prothrombin Time 11.0 sec (9.3-11.8)
[2024-08-12] MEDS: PANTOPRAZOLE 40 MG TAB PO SCH (22:01)
--- NOTE | 2024-08-12 23:17 | DVHPN2 ---
Progress Note - Dictate Date Seen: Aug 12, 2024 Has the PT tested + for MRSA If YES, has PT been informed?: No Medical Necessity Reason Pt with a Central, PICC or Fol: No Subjective Patient was seen and evaluated in follow up in the ICU. Patient is feeling better since admission. Pacemaker interrogation performed, normal functioning. Echo shows LVEF 45% with hypokinetic apex, [id number] LVH with RV enlargement. Planned for left heart catheterization for tomorrow morning. vital signs Vital Sign Date Time Temp Pulse Resp B/P (MAP) Pulse Ox O2 Delivery O2 Flow Rate FiO2 08/12/24 20:00 96.7 72 25 93 96.7 08/12/24 08:00 Nasal Cannula* 2 28 Total Intake and Output 08/11/24 08/11/24 08/12/24 15:00 23:00 07:00 Intake Total 109 ml 552 ml 776 ml Output Total 500 ml 1000 ml Balance 109 ml 52 ml -224 ml medications Current Medications Medications Dose Ordered Sig/Jorje Route Start Time Stop Time Status Last Admin Dose Admin Atorvastatin Calcium 40 mg HS PO 08/10/24 22:00 08/12/24 22:01 40 MG Acetaminophen 650 mg Q6HPRN PRN PO 08/10/24 21:45 08/12/24 22:48 650 MG Acetaminophen/ Hydrocodone Bitart 1 tab Q6HPRN PRN PO 08/10/24 21:45 Nitroglycerin 0.4 mg Q5MINP PRN SL 08/10/24 21:45 Morphine Sulfate 2 mg Q30M PRN IV 08/10/24 21:45 Donepezil HCl 5 mg DAILY PO 08/11/24 10:00 08/12/24 09:43 5 MG Latanoprost 1 drop QPM EACHEYE 08/11/24 18:00 08/12/24 18:33 1 DROP Losartan Potassium 25 mg DAILY PO 08/11/24 10:00 Levothyroxine Sodium 75 mcg DAILY@0700 PO 08/11/24 07:00 08/12/24 06:51 75 MCG Patient Own Medication 500 mg DAILY PO 08/11/24 10:00 UNV Polyethylene Glycol 17 gm DAILY PO 08/11/24 10:00 Gabapentin 300 mg HS PO 08/10/24 22:00 08/12/24 22:01 300 MG Hydralazine HCl 10 mg Q6HP PRN IV 08/10/24 22:00 Niacinamide 500 mg DAILY PO 08/11/24 10:00 Sodium Chloride 1,000 ml @ 60 mls/hr [id number] IV 08/11/24 12:30 08/12/24 22:01 60 MLS/HR Haloperidol Lactate 2.5 mg Q8HP PRN IM 08/11/24 13:00 Clopidogrel Bisulfate 75 mg DAILY PO 08/12/24 10:00 08/12/24 10:39 75 MG Furosemide 40 mg DAILY IV 08/12/24 10:00 08/12/24 09:44 40 MG Pantoprazole Sodium 40 mg BID PO 08/12/24 22:00 08/12/24 22:01 40 MG Heparin Sodium/ Dextrose 250 ml @ 8 mls/hr Q24H IV 08/12/24 22:30 objective CARDIOVASCULAR GENERAL: Alert and oriented x 3. No acute distress. EYES: PERRL, EOMI. Anicteric. HENT: Moist mucous membranes. LUNGS: Clear to auscultation bilaterally. Regular rate and rhythm. ABDOMEN: Soft, non-tender and non-distended. EXTREMITIES: No edema. NEUROLOGIC: No focal neurological deficits. SKIN: Warm, dry. laboratory and microbiology Laboratory Tests 08/12/24 05:18 Test 08/12/24 05:18 Range/Units Serum Glucose 81 74-106 mg/dL Problem List Acute metabolic encephalopathy, likely due to myocardial infarction. NSTEMI, likely type 1. History of coronary artery disease status post CABG. Hypertension. Dyslipidemia. Hypothyroidism. Dementia. MERA on CKD. Diet-controlled diabetes mellitus. Status post pacemaker, seated at 50 per minute has been back up. Assessment/Plan Continued all current supportive medical care. Patient has been seen by Mikal Sin, resident on my behalf. We have discussed the plan with the patient. Continue conservative management including aspirin, Plavix, Lasix 40 mg and heparin drip. Planned for left heart catheterization for tomorrow morning. Risk and benefits of left heart catheterization discussed with the patient and patient's family, all questions and concerns were addressed. Keep K above 4, and Mag above 2. Considering patient's current status, comorbidities and the patient's family preference, she can be transferred to the [facility] (as per patient's family her primary director is located there) for further management. Rest of plan, per primary team. Additional plan as per the hospital course. Critical care time of 45 minutes provided to include time spent evaluation of patient at bedside, when appropriate patient/family education for diagnosis, treatment plan, review of pertinent medical information and discussion of care with specialty providers and PCP. Dietary Evaluation Review Comments: 1) Glucerna 240ml TID if PO intake <50% 2) Monitor PO intake, lab values, wt trend Expected Outcomes/Goals: To meet 75% estimmated needs FU 3-5 days Plan discussed with: Patient HOSSEIN GARRETT MD Aug 12, 2024 23:17
[2024-08-13] VITALS (35 sets, daily range): BP systolic 117–159; BP diastolic 39–75; PULSE 58–83; RESP 6–18; TEMP 96.7–97.9; O2SAT 94–100
[2024-08-13 05:07] LABS: Hematocrit 37.5 % (36.0-46.0); Hemoglobin 12.6 g/dL (12.2-16.2); Mean Corpuscular Hemoglobin 32.3 pg (28.0-32.0); Mean Corpuscular Volume 96.4 fL (80.0-100.0); Nucleated Red Blood Cells % 0.1 %
[2024-08-13 05:30] LABS: Potassium 4.2 mmol/L (3.5-5.1); Sodium 145 mmol/L (136-145)
[2024-08-13 05:31] LABS: Anion Gap 7 (5-15); Carbon Dioxide 31 mmol/L (20-31)
[2024-08-13 05:32] LABS: Calcium 9.0 mg/dL (8.7-10.4)
[2024-08-13 05:33] LABS: INR 1.05 (0.9-1.15); Prothrombin Time 11.1 sec (9.3-11.8)
[2024-08-13 05:34] LABS: Partial Thromboplastin Time 76.3 SEC (24.5-34.5)
[2024-08-13 05:37] LABS: BUN/Creatinine Ratio 18.3 (10.0-20.0); Blood Urea Nitrogen 22 mg/dL (9-23)
[2024-08-13 05:42] LABS: Chloride 107 mmol/L (98-107); Glucose 108 mg/dL (74-106)
[2024-08-13] MEDS: HEPARIN DRIP/D5W 100UNITS/ML 250 ML IV SCH (06:24)
--- NOTE | 2024-08-13 08:50 | ECG ---
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
--- NOTE | 2024-08-13 08:50 | ECG ---
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
--- NOTE | 2024-08-13 09:03 | ECG ---
[facility] Test Date: 2024-08-10 Test Time: 17:30:17 Pat Name: GENTRY SOLIS Department: ED Room: 0261D A Gender: F Wiring Inspector: jorge : 1945 Requested By: ISRRAEL CAMPOS Order Number: [id number] Reading MD: Nazario Hackett Measurements Intervals [place] Rate: 75 P: 67 LA: 222 QRS: -161 QRSD: 142 T: 47 QT: 390 QTc: 436 Interpretive Statements Sinus rhythm Borderline prolonged LA interval Right bundle branch block Lateral infarct, old Electronically Signed On 08-15-2024 9:39:07 PDT by Nazario Hackett Please click the below link to view image of tracing.
--- NOTE | 2024-08-13 10:53 | DVHPN2 ---
Progress Note Date Seen: Aug 13, 2024 Resident Creating Document: ASHLEE VERMA PETE Has the PT tested + for MRSA If YES, has PT been informed?: No Medical Necessity Reason Pt with a Central, PICC or Fol: No Subjective Review of Systems Patient seen and examined at the bedside. Patient is currently has no active complaint. Patient reports: No new complaints, Feels better Changes from previous H/P or p: Changes Objective vital signs Vital Sign Date Time Temp Pulse Resp B/P (MAP) Pulse Ox O2 Delivery O2 Flow Rate FiO2 08/13/24 10:00 60 13 129/47 (74) 98 08/13/24 08:00 Nasal Cannula* 2 28 08/13/24 08:00 97.4 97.4 Total Intake and Output 08/12/24 08/12/24 08/13/24 15:00 23:00 07:00 Intake Total 514 ml 1250 ml 776 ml Output Total 1100 ml 550 ml Balance 514 ml 150 ml 226 ml medications Current Medications Medications Dose Ordered Sig/Jorje Route Start Time Stop Time Status Last Admin Dose Admin Atorvastatin Calcium 40 mg HS PO 08/10/24 22:00 08/12/24 22:01 40 MG Acetaminophen 650 mg Q6HPRN PRN PO 08/10/24 21:45 08/13/24 09:23 650 MG Acetaminophen/ Hydrocodone Bitart 1 tab Q6HPRN PRN PO 08/10/24 21:45 Nitroglycerin 0.4 mg Q5MINP PRN SL 08/10/24 21:45 Morphine Sulfate 2 mg Q30M PRN IV 08/10/24 21:45 Donepezil HCl 5 mg DAILY PO 08/11/24 10:00 08/13/24 09:23 5 MG Latanoprost 1 drop QPM EACHEYE 08/11/24 18:00 08/12/24 18:33 1 DROP Losartan Potassium 25 mg DAILY PO 08/11/24 10:00 08/13/24 09:23 25 MG Levothyroxine Sodium 75 mcg DAILY@0700 PO 08/11/24 07:00 08/13/24 07:00 75 MCG Patient Own Medication 500 mg DAILY PO 08/11/24 10:00 UNV Polyethylene Glycol 17 gm DAILY PO 08/11/24 10:00 Gabapentin 300 mg HS PO 08/10/24 22:00 08/12/24 22:01 300 MG Hydralazine HCl 10 mg Q6HP PRN IV 08/10/24 22:00 Sodium Chloride 1,000 ml @ 60 mls/hr [id number] IV 08/11/24 12:30 08/12/24 22:01 60 MLS/HR Haloperidol Lactate 2.5 mg Q8HP PRN IM 08/11/24 13:00 Clopidogrel Bisulfate 75 mg DAILY PO 08/12/24 10:00 08/13/24 09:23 75 MG Furosemide 40 mg DAILY IV 08/12/24 10:00 08/12/24 09:44 40 MG Pantoprazole Sodium 40 mg BID PO 08/12/24 22:00 08/13/24 09:24 40 MG Heparin Sodium/ Dextrose 250 ml @ 6 mls/hr Q24H IV 08/13/24 06:00 08/13/24 06:24 6 MLS/HR Lidocaine 1 patch DAILY TOP 08/13/24 22:00 UNV Examination General Appearance: Alert, Oriented X3, Cooperative, No acute distress HEENT: Atraumatic, PERRLA, EOMI, Mucous membrane moist/pink Respiratory: Clear to auscultation, Normal air movement Cardiovascular: Regular rate, Normal S1, Normal S2, No murmurs, no chest wall tenderness Abdominal: Normal bowel sounds, Soft, No tenderness, No hepatospenomegaly, No masses Extremities: No clubbing, No cyanosis, No edema, Normal pulses, No tenderness/swelling Skin: No rashes, No breakdown, No significant lesion Neuro: Normal gait, Normal speech, Strength at 5/5 X4 ext, Normal tone, Sensation intact, Cranial nerves 3-12 NL, Reflexes 2+ Psych/Mental Status: Mental status NL, Mood NL laboratory and microbiology Laboratory Tests 08/13/24 04:50 Test 08/13/24 04:50 Range/Units Serum Glucose 108 H 74-106 mg/dL Microbiology Date/Time Source Procedure Growth Status 08/11/24 05:00 Nose MRSA Screen - Final Complete 08/10/24 18:05 Blood Blood Culture - Preliminary NO GROWTH AFTER 48 HOURS OF INCUBATION. Resulted Labs and/or images reviewed: Labs reviewed by me, Image(s) reviewed by me Problem List/Assessment/Plan Problem List/Assessment/Plan Acute metabolic encephalopathy, likely due to myocardial infarction NSTEMI, likely type 1 History of coronary artery disease status post CABG Hypertension Dyslipidemia Hypothyroidism Dementia MERA on CKD Diet-controlled diabetes mellitus Status post pacemaker, seated at 50 per minute has been back up * EKGs shows, sinus rhythm with RBBB, grade 1 heart block, extreme right axis deviation with no significant ST or T-wave changes * Troponin I is raised, up trending * Chest x-ray shows cardiomegaly * Pacemaker interrogation performed, normal functioning * Echo shows LVEF 45% with hypokinetic apex, [id number] LVH with RV enlargement Plan/Recommendation (Case discussed with Dr. Hackett) * Continue conservative management including aspirin, Plavix, Lasix 40 mg * left heart catheterization performed, and shows no significant disease, aggressive medical management, started on Jardiance 10mg daily, spironolactone 25mg daily, carvidilol 6.25mg BID and Entrasto BID, discontinue losartan * Keep K above 4, and Mag above 2 * We sign off the patient * Rest of plan, per primary team Thank you for allowing us to participate in this patient's care. Please call if you have any questions or concerns. Plan discussed with: Patient, Other Dietary Evaluation Review Comments: 1) Glucerna 240ml TID if PO intake <50% 2) Monitor PO intake, lab values, wt trend Expected Outcomes/Goals: To meet 75% estimmated needs FU 3-5 days ASHLEE VERMA RESMARTIN Aug 13, 2024 10:53
[2024-08-13] MEDS: NIACIN 500 MG PO SCH (11:25)
[2024-08-13 12:00] LABS: INR 1.03 (0.9-1.15); Partial Thromboplastin Time 58.0 SEC (24.5-34.5); Prothrombin Time 10.9 sec (9.3-11.8)
[2024-08-13] MEDS: LIDOCAINE 5% TOPICAL PATCH TOP SCH (12:25)
--- NOTE | 2024-08-13 13:57 | DVHPN2 ---
Progress Note - Dictate Date Seen: Aug 13, 2024 Has the PT tested + for MRSA If YES, has PT been informed?: No Medical Necessity Reason Pt with a Central, PICC or Fol: No Subjective Clinically stable. No chest pain or shortness for breath. Scheduled to undergo coronary angiogram this afternoon. vital signs Vital Sign Date Time Temp Pulse Resp B/P (MAP) Pulse Ox O2 Delivery O2 Flow Rate FiO2 08/13/24 12:00 67 08/13/24 12:00 96.9 12 121/46 (71) 97 96.9 08/13/24 08:00 Nasal Cannula* 2 28 Total Intake and Output 08/12/24 08/12/24 08/13/24 15:00 23:00 07:00 Intake Total 514 ml 1250 ml 776 ml Output Total 1100 ml 550 ml Balance 514 ml 150 ml 226 ml medications Current Medications Medications Dose Ordered Sig/Jorje Route Start Time Stop Time Status Last Admin Dose Admin Atorvastatin Calcium 40 mg HS PO 08/10/24 22:00 08/12/24 22:01 40 MG Acetaminophen 650 mg Q6HPRN PRN PO 08/10/24 21:45 08/13/24 09:23 650 MG Acetaminophen/ Hydrocodone Bitart 1 tab Q6HPRN PRN PO 08/10/24 21:45 Nitroglycerin 0.4 mg Q5MINP PRN SL 08/10/24 21:45 Morphine Sulfate 2 mg Q30M PRN IV 08/10/24 21:45 Donepezil HCl 5 mg DAILY PO 08/11/24 10:00 08/13/24 09:23 5 MG Latanoprost 1 drop QPM EACHEYE 08/11/24 18:00 08/12/24 18:33 1 DROP Losartan Potassium 25 mg DAILY PO 08/11/24 10:00 08/13/24 09:23 25 MG Levothyroxine Sodium 75 mcg DAILY@0700 PO 08/11/24 07:00 08/13/24 07:00 75 MCG Patient Own Medication 500 mg DAILY PO 08/11/24 10:00 UNV Polyethylene Glycol 17 gm DAILY PO 08/11/24 10:00 Gabapentin 300 mg HS PO 08/10/24 22:00 08/12/24 22:01 300 MG Hydralazine HCl 10 mg Q6HP PRN IV 08/10/24 22:00 Sodium Chloride 1,000 ml @ 60 mls/hr [id number] IV 08/11/24 12:30 08/12/24 22:01 60 MLS/HR Haloperidol Lactate 2.5 mg Q8HP PRN IM 08/11/24 13:00 Clopidogrel Bisulfate 75 mg DAILY PO 08/12/24 10:00 08/13/24 09:23 75 MG Furosemide 40 mg DAILY IV 08/12/24 10:00 08/12/24 09:44 40 MG Pantoprazole Sodium 40 mg BID PO 08/12/24 22:00 08/13/24 09:24 40 MG Heparin Sodium/ Dextrose 250 ml @ 6 mls/hr Q24H IV 08/13/24 06:00 08/13/24 06:24 6 MLS/HR Patient Own Medication 1 DAILY PO 08/13/24 11:23 08/13/24 11:25 1 Lidocaine 1 patch DAILY TOP 08/13/24 12:15 08/13/24 12:25 1 PATCH objective Comfortable in bed without distress. Alert awake oriented x3. Heart S1 plus S2 regular rate and rhythm. Lungs fair air movement without wheezing. Abdomen soft positive bowel sounds. Extremities no edema. laboratory and microbiology Laboratory Tests 08/13/24 04:50 Test 08/13/24 04:50 Range/Units Serum Glucose 108 H 74-106 mg/dL Assessment/Plan Continue heparin drip. Start Protonix p.o. b.i.d.. Continue present management and further clinical management per angiogram findings and recommendations from the Cardiology. Dietary Evaluation Review Comments: 1) Glucerna 240ml TID if PO intake <50% 2) Monitor PO intake, lab values, wt trend Expected Outcomes/Goals: To meet 75% estimmated needs FU 3-5 days Plan discussed with: JENSEN Wallis MD Aug 13, 2024 13:57
--- NOTE | 2024-08-13 15:15 | DVHOP2 ---
Operative Report - 2 Report Details Date: 08/13/24 Preop Diagnosis: CAD Postop Diagnosis: CAD aortic insufficiency aortic stenosis cardiomyopathy Surgeon: Rosa Maria Hackett MD Anesthesiologist: Conscious sedation Anesthesia: Mac, Local Consent: The patient was informed of the risks and benefits of the procedure. These include but are not limited to complications of anesthesia, postoperative infection, incomplete relief of symptoms, recurrence of symptoms, damage to blood vessels, nerves and tendons, deep venous thrombosis, pulmonary embolism and possible need for repeat surgery in the future. Complications: No complications Findings: Cardiomyopathy. Mild aortic insufficiency. Pulmonary hypertension. Coronary artery disease. Indications for Surgery: Shortness of breath. Chest pain Name of Procedure Performed Left heart catheterization bilateral cine coronary angiography. Left ventriculography. Saphenous venous grafts and left internal mammary artery. Procedure Details Procedure Details: Prior local anesthesia with 2% lidocaine to the right groin and full informed consent obtained the patient was prepped and draped in usual fashion followed by placement of a six [place] sheath into the right femoral artery through which six [place] Alex catheters were used to cannulate both right and left coronary ostia and a six [place] pigtail catheter was used for ventriculography. Visualization of saphenous venous grafts with a left internal mammary catheter and a left coronary bypass. No complications Hemodynamics: Aortic blood pressure was 150/90. End-diastolic pressure was 25. There was no gradient across the aortic valve on pullback. Coronary anatomy the RCA is 100% occluded proximally. Left main is large and no rmal. Left anterior descending coronary artery is moderately diseased competitive flow is noted from the left internal mammary. The circumflex is occluded proximally The saphenous venous graft to the RCA is patent it is tortuous and somewhat aneurysmal. There was retrograde flow into the PDA and posterolateral branches. The PDA is within normal limits. The saphenous graft to the marginal branches normal. There was minimal retrograde flow into the proximal circumflex. The left internal mammary artery the LAD is patent without stenosis in its proximal mid or distal segments. Ventriculography in the KENNEY projection shows anteroapical akinesis. There is basal anterior hypokinesis. Takotsubo type cardiomyopathy noted. Aortography also performed. Nndp-st-oddditco aortic insufficiency. Impression: Elevated ventricular end-diastolic pressure was decreased left ventricular ejection fraction. Three-vessel coronary artery disease as mentioned. Patent saphenous grafts to RCA and circumflex with patent left internal mammary artery of the LAD. Decreased left ventricular ejection fraction. Recommendations: afterload reduction. Risk factor modification to continue. Condition Fair Disposition Still a Patient Date of Service: Aug 13, 2024 Billing Provider: ROSA MARIA HACKETT Sr., MD Cardiology Common Codes: 46489-ITKIKVT INP/OBS CARE (High) Cardiology Procedure Codes: 54888-ZLOX HEART CATH W/INTRA INJ ROSA MARIA HACKETT Sr., MD Aug 13, 2024 15:15
[2024-08-13] MEDS: IODIXANOL 320MG/ML 100ML BTL IV ONE ×2 (20:03→20:06)
[2024-08-13] MEDS: fentaNYL CITRATE 100 MCG/2 ML VL ONE (20:04)
[2024-08-13] MEDS: MIDAZOLAM HCL 2MG/2ML 2ml VIAL (1mg/ml) ONE (20:04)
[2024-08-13] MEDS: ANGIOMAX 250 MG VIAL IV ONE (20:04)
[2024-08-13] MEDS: SODIUM CHL 0.9% 0 ML ONE (20:05)
[2024-08-13] MEDS: LIDOCAINE 2%HCL (LOCAL ANESTH.) INJ 20ML MDV ONE (20:05)
[2024-08-13] MEDS: SACUBITRIL-VALSARTAN 24mg/26mg TAB PO SCH (21:35)
[2024-08-13] MEDS: CARVEDILOL 3.125 MG TAB PO SCH (21:36)
[2024-08-13] MEDS ORDERED: LIDOCAINE 5% TOPICAL PATCH TOP SCH (22:00)
--- NOTE | 2024-08-13 22:49 | DVHPN2 ---
Progress Note - Dictate Date Seen: Aug 13, 2024 Has the PT tested + for MRSA If YES, has PT been informed?: No Medical Necessity Reason Pt with a Central, PICC or Fol: No Subjective Patient was seen and evaluated in follow up in the ICU. Patient is on 2 LPM NC. Patient denies any active complaints. Patient underwent eft heart catheterization performed, and shows no significant disease, aggressive medical management. Troponin 1205. vital signs Vital Sign Date Time Temp Pulse Resp B/P (MAP) Pulse Ox O2 Delivery O2 Flow Rate FiO2 08/13/24 15:17 72 10 159/58 (91) 99 08/13/24 12:00 96.9 96.9 08/13/24 08:00 Nasal Cannula* 2 28 Total Intake and Output 08/12/24 08/12/24 08/13/24 15:00 23:00 07:00 Intake Total 514 ml 1250 ml 782 ml Output Total 1100 ml 550 ml Balance 514 ml 150 ml 232 ml medications Current Medications Medications Dose Ordered Sig/Jorje Route Start Time Stop Time Status Last Admin Dose Admin Atorvastatin Calcium 40 mg HS PO 08/10/24 22:00 08/12/24 22:01 40 MG Acetaminophen 650 mg Q6HPRN PRN PO 08/10/24 21:45 08/13/24 09:23 650 MG Acetaminophen/ Hydrocodone Bitart 1 tab Q6HPRN PRN PO 08/10/24 21:45 Nitroglycerin 0.4 mg Q5MINP PRN SL 08/10/24 21:45 Morphine Sulfate 2 mg Q30M PRN IV 08/10/24 21:45 Donepezil HCl 5 mg DAILY PO 08/11/24 10:00 08/13/24 09:23 5 MG Latanoprost 1 drop QPM EACHEYE 08/11/24 18:00 08/12/24 18:33 1 DROP Losartan Potassium 25 mg DAILY PO 08/11/24 10:00 08/13/24 09:23 25 MG Levothyroxine Sodium 75 mcg DAILY@0700 PO 08/11/24 07:00 08/13/24 07:00 75 MCG Patient Own Medication 500 mg DAILY PO 08/11/24 10:00 UNV Polyethylene Glycol 17 gm DAILY PO 08/11/24 10:00 Gabapentin 300 mg HS PO 08/10/24 22:00 08/12/24 22:01 300 MG Hydralazine HCl 10 mg Q6HP PRN IV 08/10/24 22:00 Sodium Chloride 1,000 ml @ 60 mls/hr [id number] IV 08/11/24 12:30 08/12/24 22:01 60 MLS/HR Haloperidol Lactate 2.5 mg Q8HP PRN IM 08/11/24 13:00 Clopidogrel Bisulfate 75 mg DAILY PO 08/12/24 10:00 08/13/24 09:23 75 MG Furosemide 40 mg DAILY IV 08/12/24 10:00 08/12/24 09:44 40 MG Pantoprazole Sodium 40 mg BID PO 08/12/24 22:00 08/13/24 09:24 40 MG Patient Own Medication 1 DAILY PO 08/13/24 11:23 08/13/24 11:25 1 Lidocaine 1 patch DAILY TOP 08/13/24 12:15 08/13/24 12:25 1 PATCH objective CARDIOVASCULAR GENERAL: Alert and oriented x 3. No acute distress. EYES: PERRL, EOMI. Anicteric. HENT: Moist mucous membranes. LUNGS: Clear to auscultation bilaterally. Regular rate and rhythm. ABDOMEN: Soft, non-tender and non-distended. EXTREMITIES: No edema. NEUROLOGIC: No focal neurological deficits. SKIN: Warm, dry. laboratory and microbiology Laboratory Tests 08/13/24 04:50 Test 08/13/24 04:50 Range/Units Serum Glucose 108 H 74-106 mg/dL Problem List Acute metabolic encephalopathy, likely due to myocardial infarction. NSTEMI, likely type 1. History of coronary artery disease status post CABG. Hypertension. Dyslipidemia. Hypothyroidism. Dementia. MERA on CKD. Diet-controlled diabetes mellitus. Status post pacemaker, seated at 50 per minute has been back up. Assessment/Plan Continued all current supportive medical care. Patient has been seen by Mikal Sin, resident on my behalf. We have discussed the plan with the patient. Continue conservative management including aspirin, Plavix, Lasix 40 mg. S/P left heart catheterization performed, and shows no significant disease, aggressive medical management, started on Jardiance 10mg daily, spironolactone 25mg daily, carvidilol 6.25mg BID and Entrasto BID, discontinue losartan. Keep K above 4, and Mag above 2. We sign off the patient. Rest of plan, per primary team. Additional plan as per the hospital course. Critical care time of 45 minutes provided to include time spent evaluation of patient at bedside, when appropriate patient/family education for diagnosis, treatment plan, review of pertinent medical information and discussion of care with specialty providers and PCP. Dietary Evaluation Review Comments: 1) Glucerna 240ml TID if PO intake <50% 2) Monitor PO intake, lab values, wt trend Expected Outcomes/Goals: To meet 75% estimmated needs FU 3-5 days Plan discussed with: Patient HOSSEIN GARRETT MD Aug 13, 2024 16:15
[2024-08-14] VITALS (46 sets, daily range): BP systolic 90–124; BP diastolic 34–71; PULSE 54–75; RESP 8–23; TEMP 97.4–97.9; O2SAT 92–100
[2024-08-14 05:09] LABS: Hematocrit 36.7 % (36.0-46.0); Hemoglobin 12.2 g/dL (12.2-16.2); Mean Corpuscular Hemoglobin 32.6 pg (28.0-32.0); Mean Corpuscular Volume 97.9 fL (80.0-100.0); Nucleated Red Blood Cells % 0.2 %
[2024-08-14 05:30] LABS: Alanine Aminotransferase 15 U/L (7-40); Alkaline Phosphatase 62 U/L (46-116); Anion Gap 7 (5-15); BUN/Creatinine Ratio 16.1 (10.0-20.0); Blood Urea Nitrogen 15 mg/dL (9-23); Calcium 9.0 mg/dL (8.7-10.4); Carbon Dioxide 29 mmol/L (20-31); Glucose 90 mg/dL (74-106); Potassium 3.9 mmol/L (3.5-5.1)
[2024-08-14 05:31] LABS: Bilirubin, Total 0.4 mg/dL (0.2-1.0)
[2024-08-14 05:34] LABS: Albumin 3.0 g/dL (3.2-4.8); Chloride 109 mmol/L (98-107); Magnesium 1.4 mg/dL (1.6-2.6); Sodium 145 mmol/L (136-145); Total Protein 5.0 g/dL (5.7-8.2)
[2024-08-14] MEDS: MAGNESIUM SULFATE 1GM/100ML 100 ML IV SCH (06:15)
[2024-08-14] MEDS ORDERED: Niacin 500mg TAB ER PO ONE (10:00)
[2024-08-14] MEDS ORDERED: SPIRONOLACTONE 25 MG TAB PO SCH (10:00)
--- NOTE | 2024-08-14 10:53 | DVHPN2 ---
Progress Note Date Seen: Aug 14, 2024 Resident Creating Document: ASHLEE VERMA PETE Has the PT tested + for MRSA If YES, has PT been informed?: No Medical Necessity Reason Pt with a Central, PICC or Fol: No Subjective Review of Systems Patient seen and examined at the bedside. Patient is feeling better since admission does not have active complaint. Patient reports: No new complaints, Feels better Changes from previous H/P or p: Changes Objective vital signs Vital Sign Date Time Temp Pulse Resp B/P (MAP) Pulse Ox O2 Delivery O2 Flow Rate FiO2 08/14/24 09:56 97.3 08/14/24 06:30 57 14 100/39 (59) 96 08/13/24 20:00 Nasal Cannula* 2 28 Total Intake and Output 08/13/24 08/13/24 08/14/24 15:00 23:00 07:00 Intake Total 516 ml 600 ml 820 ml Output Total 950 ml 350 ml Balance 516 ml -350 ml 470 ml medications Current Medications Medications Dose Ordered Sig/Jorje Route Start Time Stop Time Status Last Admin Dose Admin Atorvastatin Calcium 40 mg HS PO 08/10/24 22:00 08/13/24 21:36 40 MG Acetaminophen 650 mg Q6HPRN PRN PO 08/10/24 21:45 08/14/24 09:56 650 MG Acetaminophen/ Hydrocodone Bitart 1 tab Q6HPRN PRN PO 08/10/24 21:45 Nitroglycerin 0.4 mg Q5MINP PRN SL 08/10/24 21:45 Morphine Sulfate 2 mg Q30M PRN IV 08/10/24 21:45 Donepezil HCl 5 mg DAILY PO 08/11/24 10:00 08/13/24 09:23 5 MG Latanoprost 1 drop QPM EACHEYE 08/11/24 18:00 08/13/24 17:32 1 DROP Levothyroxine Sodium 75 mcg DAILY@0700 PO 08/11/24 07:00 08/14/24 06:56 75 MCG Patient Own Medication 500 mg DAILY PO 08/11/24 10:00 UNV Polyethylene Glycol 17 gm DAILY PO 08/11/24 10:00 Gabapentin 300 mg HS PO 08/10/24 22:00 08/13/24 21:35 300 MG Hydralazine HCl 10 mg Q6HP PRN IV 08/10/24 22:00 Sodium Chloride 1,000 ml @ 60 mls/hr [id number] IV 08/11/24 12:30 08/14/24 06:18 60 MLS/HR Haloperidol Lactate 2.5 mg Q8HP PRN IM 08/11/24 13:00 Clopidogrel Bisulfate 75 mg DAILY PO 08/12/24 10:00 08/13/24 09:23 75 MG Furosemide 40 mg DAILY IV 08/12/24 10:00 08/12/24 09:44 40 MG Pantoprazole Sodium 40 mg BID PO 08/12/24 22:00 08/13/24 21:36 40 MG Patient Own Medication 1 DAILY PO 08/13/24 11:23 08/13/24 11:25 1 Lidocaine 1 patch DAILY TOP 08/13/24 12:15 08/13/24 12:25 1 PATCH Sacubitril/ Valsartan 2 tab BID PO 08/13/24 22:00 08/13/24 21:35 2 TAB Empaglifozin 10 mg DAILY PO 08/14/24 10:00 Examination General Appearance: Alert, Oriented X3, Cooperative, No acute distress HEENT: Atraumatic, PERRLA, EOMI, Mucous membrane moist/pink Respiratory: Clear to auscultation, Normal air movement Cardiovascular: Regular rate, Normal S1, Normal S2, No murmurs, no chest wall tenderness Abdominal: Normal bowel sounds, Soft, No tenderness, No hepatospenomegaly, No masses Extremities: No clubbing, No cyanosis, No edema, Normal pulses, No tenderness/swelling Skin: No rashes, No breakdown, No significant lesion Neuro: Normal gait, Normal speech, Strength at 5/5 X4 ext, Normal tone, Sensation intact, Cranial nerves 3-12 NL, Reflexes 2+ Psych/Mental Status: Mental status NL, Mood NL laboratory and microbiology Laboratory Tests 08/14/24 04:29 Test 08/14/24 04:29 Range/Units Serum Glucose 90 74-106 mg/dL Microbiology Date/Time Source Procedure Growth Status 08/11/24 05:00 Nose MRSA Screen - Final Complete 08/10/24 18:05 Blood Blood Culture - Preliminary NO GROWTH AFTER 72 HOURS OF INCUBATION. Resulted Labs and/or images reviewed: Labs reviewed by me, Image(s) reviewed by me Problem List/Assessment/Plan Problem List/Assessment/Plan Acute metabolic encephalopathy, likely due to myocardial infarction NSTEMI, likely type 1 ? Takotsubo's cardiomyopathy/broken heart syndrome History of coronary artery disease status post CABG Hypertension Dyslipidemia Hypothyroidism Dementia MERA on CKD Diet-controlled diabetes mellitus Status post pacemaker, seated at 50 per minute has been back up * EKGs shows, sinus rhythm with RBBB, grade 1 heart block, extreme right axis deviation with no significant ST or T-wave changes * Troponin I is raised, up trending * Chest x-ray shows cardiomegaly * Pacemaker interrogation performed, normal functioning * Echo shows LVEF 30% with hypokinetic apex, [id number] LVH with RV enlargement * left heart catheterization performed, and shows no significant disease, aggressive medical management with the EF 25-30% Plan/Recommendation (Case discussed with Dr. Hackett) * Continue conservative management including aspirin, Plavix, Lasix 40 mg * We sign of the patient * Discharge plan from Cardiology standpoint: Started on Entresto b.i.d., Jardiance 10 mg daily, single antiplatelet (Plavix), atorvastatin. Patient may later be started on carvedilol 6.25 mg b.i.d. (stop taking if heart rate < 65) and spironolactone 25 mg daily if blood pressure and heart rate permitted. Stopped losartan (switch to Entresto), discontinue aspirin * Dr. Hackett and I had a detailed discussion with patient and patient's daughter at bedside, all questions and concerns were addressed. * Patient will follow Dr. Goff at office Thank you for allowing us to participate in this patient's care. Please call if you have any questions or concerns. Plan discussed with: Patient, Other (RN) My Orders My Orders Orders - ASHLEE VERMA RESDICATHY Procedure Category Date Status Time Sacubitril-Valsartan PHA 08/13/24 In Process (Entresto 24-26 Mg 22:00 Empagliflozin PHA 08/14/24 In Process (Jardiance) 10:00 Renin Activity And LAB 08/14/24 In Process Aldosterone 09:17 Dietary Evaluation Review Comments: 1) Glucerna 240ml TID if PO intake <50% 2) Monitor PO intake, lab values, wt trend Expected Outcomes/Goals: To meet 75% estimmated needs FU 3-5 days ASHLEE VERMA RESDIENT Aug 14, 2024 10:53
[2024-08-14] MEDS: EMPAGLIFLOZIN 10 MG TAB PO SCH (11:07)
--- NOTE | 2024-08-14 15:01 | DVHPN2 ---
Progress Note - Dictate Date Seen: Aug 14, 2024 Has the PT tested + for MRSA If YES, has PT been informed?: No Medical Necessity Reason Pt with a Central, PICC or Fol: No Subjective Clinically stable. No chest pain or shortness for breath. Ambulating with the physical therapy. Discussed with the astronaut mission specialist recommending medical therapy/management. Status post angiogram yesterday. No stents placed vital signs Vital Sign Date Time Temp Pulse Resp B/P (MAP) Pulse Ox O2 Delivery O2 Flow Rate FiO2 08/14/24 14:30 60 13 90/34 (52) 95 08/14/24 09:56 97.3 08/14/24 08:00 Nasal Cannula* 2 28 Total Intake and Output 08/13/24 08/13/24 08/14/24 15:00 23:00 07:00 Intake Total 516 ml 600 ml 820 ml Output Total 950 ml 350 ml Balance 516 ml -350 ml 470 ml medications Current Medications Medications Dose Ordered Sig/Jorje Route Start Time Stop Time Status Last Admin Dose Admin Atorvastatin Calcium 40 mg HS PO 08/10/24 22:00 08/13/24 21:36 40 MG Acetaminophen 650 mg Q6HPRN PRN PO 08/10/24 21:45 08/14/24 09:56 650 MG Acetaminophen/ Hydrocodone Bitart 1 tab Q6HPRN PRN PO 08/10/24 21:45 Nitroglycerin 0.4 mg Q5MINP PRN SL 08/10/24 21:45 Morphine Sulfate 2 mg Q30M PRN IV 08/10/24 21:45 Donepezil HCl 5 mg DAILY PO 08/11/24 10:00 08/14/24 11:06 5 MG Latanoprost 1 drop QPM EACHEYE 08/11/24 18:00 08/13/24 17:32 1 DROP Levothyroxine Sodium 75 mcg DAILY@0700 PO 08/11/24 07:00 08/14/24 06:56 75 MCG Patient Own Medication 500 mg DAILY PO 08/11/24 10:00 UNV Polyethylene Glycol 17 gm DAILY PO 08/11/24 10:00 08/14/24 10:00 17 GM Gabapentin 300 mg HS PO 08/10/24 22:00 08/13/24 21:35 300 MG Hydralazine HCl 10 mg Q6HP PRN IV 08/10/24 22:00 Haloperidol Lactate 2.5 mg Q8HP PRN IM 08/11/24 13:00 Clopidogrel Bisulfate 75 mg DAILY PO 08/12/24 10:00 08/14/24 11:06 75 MG Pantoprazole Sodium 40 mg BID PO 08/12/24 22:00 08/14/24 11:04 40 MG Patient Own Medication 1 DAILY PO 08/13/24 11:23 08/14/24 10:00 1 Lidocaine 1 patch DAILY TOP 08/13/24 12:15 08/14/24 11:11 1 PATCH Empaglifozin 10 mg DAILY PO 08/14/24 10:00 08/14/24 11:07 10 MG Furosemide 40 mg DAILY PO 08/15/24 10:00 UNV Sacubitril/ Valsartan 1 tab BID PO 08/14/24 22:00 UNV objective Comfortable in bed without distress. Alert awake oriented x3. Family at bedside. Heart regular rate and rhythm S1 plus S2. Lungs without rales wheezes. Abdomen soft positive bowel sounds. Extremities no edema. laboratory and microbiology Laboratory Tests 08/14/24 04:29 Test 08/14/24 04:29 Range/Units Serum Glucose 90 74-106 mg/dL Assessment/Plan Adjust Entresto dose start lower dosage given low blood pressure. Transition IV Lasix to oral Lasix. DC Howard catheter. Downgrade and transferred to telemetry floor. Continue physical therapy. If she remains stable consider discharge home tomorrow. Problems(with codes): (1) NSTEMI (non-ST elevated myocardial infarction) (2) Chest pain (3) CKD (chronic kidney disease) stage 3, GFR 30-59 ml/min Dietary Evaluation Review Comments: 1) Glucerna 240ml TID if PO intake <50% 2) Monitor PO intake, lab values, wt trend Expected Outcomes/Goals: To meet 75% estimmated needs FU 3-5 days Plan discussed with: Patient, Other JENSEN BAEZ MD Aug 14, 2024 15:01
[2024-08-14] MEDS: SACUBITRIL-VALSARTAN 24mg/26mg TAB PO SCH (21:03)
[2024-08-15] VITALS (21 sets, daily range): BP systolic 84–129; BP diastolic 34–101; PULSE 52–81; RESP 10–21; TEMP 97.6–98.9; O2SAT 91–100
[2024-08-15 05:11] LABS: Anion Gap 8 (5-15); Carbon Dioxide 30 mmol/L (20-31); Potassium 4.0 mmol/L (3.5-5.1); Sodium 145 mmol/L (136-145)
[2024-08-15 05:12] LABS: Calcium 9.2 mg/dL (8.7-10.4)
[2024-08-15 05:17] LABS: BUN/Creatinine Ratio 14.2 (10.0-20.0); Blood Urea Nitrogen 18 mg/dL (9-23); Glucose 100 mg/dL (74-106)
[2024-08-15 05:25] LABS: Chloride 107 mmol/L (98-107)
[2024-08-15 07:50] LABS: Hematocrit 36.8 % (36.0-46.0); Hemoglobin 12.2 g/dL (12.2-16.2); Mean Corpuscular Hemoglobin 32.1 pg (28.0-32.0); Mean Corpuscular Volume 96.9 fL (80.0-100.0); Nucleated Red Blood Cells % 0.0 %
[2024-08-15] MEDS: FUROSEMIDE 40 MG TAB PO SCH (09:03)
[2024-08-15] MEDS ORDERED: FUROSEMIDE 20 MG TAB PO SCH (10:00)
[2024-08-15] MEDS ORDERED: EMPA1TAB PO (15:51)
[2024-08-15] MEDS ORDERED: SACU1TAB PO (15:51)
[2024-08-15] MEDS ORDERED: ATOR20TA50 PO (15:51)
[2024-08-15] MEDS: MAGNESIUM OXIDE 400 MG TAB PO ONE (15:54)
--- NOTE | 2024-08-15 16:02 | DVHDS2 ---
Discharge Summary Date of Admission Aug 10, 2024 at 21:42 Date of Discharge: Aug 15, 2024 Labs/Diagnostic Data: Laboratory Results Test 08/15/24 11:01 08/15/24 04:29 08/14/24 10:03 08/14/24 04:29 POC Glucose 195 mg/dl (70-106) White Blood Count 5.9 10^3/uL (4.4-10.8) Red Blood Count 3.80 10^6/uL (4.0-5.20) Hemoglobin 12.2 g/dL (12.2-16.2) Hematocrit 36.8 % (36.0-46.0) Mean Corpuscular Volume 96.9 fL (80.0-100.0) Mean Corpuscular Hemoglobin 32.1 pg (28.0-32.0) Mean Corpuscular Hemoglobin Concent 33.1 g/dL (32.0-36.0) Red Cell Distribution Width 13.6 % (11.8-14.3) Platelet Count 119 10^3/uL (140-450) Mean Platelet Volume 8.4 fL (6.9-10.8) Neutrophils (%) (Auto) 57.3 % (37.0-80.0) Lymphocytes (%) (Auto) 25.1 % (10.0-50.0) Monocytes (%) (Auto) 10.2 % (0.0-12.0) Eosinophils (%) (Auto) 6.5 % (0.0-7.0) Basophils (%) (Auto) 0.9 % (0.0-2.0) Neutrophils # (Auto) 3.4 10 ^3/uL (1.6-8.6) Lymphocytes # (Auto) 1.5 10 ^3/uL (0.4-5.4) Monocytes # (Auto) 0.6 10 ^3/uL (0-1.3) Eosinophils # (Auto) 0.4 10 ^3/uL (0-0.8) Basophils # (Auto) 0.1 10 ^3/uL (0-0.2) Nucleated Red Blood Cells 0.0 % Sodium Level 145 mmol/L (136-145) Potassium Level 4.0 mmol/L (3.5-5.1) Chloride Level 107 mmol/L (98-107) Carbon Dioxide Level 30 mmol/L (20-31) Anion Gap 8 (5-15) Blood Urea Nitrogen 18 mg/dL (9-23) Creatinine 1.27 mg/dL (0.550-1.02) Glomerular Filtration Rate Calc 43 mL/min (>90) BUN/Creatinine Ratio 14.2 (10.0-20.0) Serum Glucose 100 mg/dL (74-106) Calcium Level 9.2 mg/dL (8.7-10.4) Magnesium Level 1.7 mg/dL (1.6-2.6) Total Bilirubin 0.4 mg/dL (0.2-1.0) Aspartate Amino Transferase (AST) 34 U/L (13-40) Alanine Aminotransferase (ALT) 15 U/L (7-40) Alkaline Phosphatase 62 U/L (46-116) Total Protein 5.0 g/dL (5.7-8.2) Albumin 3.0 g/dL (3.2-4.8) Thyroid Stimulating Hormone (TSH) 0.52 uIU/mL (0.55-4.78) Test 08/13/24 11:30 08/13/24 04:50 08/11/24 14:20 08/10/24 18:05 Prothrombin Time 10.9 sec (9.3-11.8) Prothrombin Time INR 1.03 (0.9-1.15) Activated Partial Thromboplast Time 58.0 SEC (24.5-34.5) Troponin I High Sensitivity 1205 ng/L (</=34) Urine Color Yellow (Yellow) Urine Clarity Clear (Clear) Urine pH 5.5 (5.0-9.0) Urine Specific [place] 1.018 (1.001-1.035) Urine Protein 1+ (Negative) Urine Ketones Trace (Negative) Urine Blood Negative /uL (Negative) Urine Nitrite Negative (Negative) Urine Bilirubin Negative (Negative) Urine Urobilinogen Normal mg/dL (Negative) Urine Leukocyte Esterase Negative /uL (Negative) Urine RBC <1 /hpf (0 - 4) Urine Microscopic WBC 1 /HPF (0-5) Urine Squamous Epithelial Cells Few /hpf (<5) Urine Bacteria None seen /hpf (None Seen) Urine Hyaline Casts Few /lpf (0 - 2) Urine Glucose Normal mg/dL (Normal) Urine Opiates Screen Neg (NEGATIVE) Urine Fentanyl Screen Neg (NEGATIVE) Urine Barbiturates Screen Neg (NEGATIVE) Urine Phencyclidine Screen Neg (NEGATIVE) Urine Amphetamines Screen Neg (NEGATIVE) Urine Benzodiazepines Screen Pos (NEGATIVE) Urine Cocaine Screen Neg (NEGATIVE) Urine Cannabinoids Screen Neg (NEGATIVE) B-Type Natriuretic Peptide 378.08 pg/mL (0-100) Triglycerides Level 175 mg/dL (< 150) Cholesterol Level 183 mg/dL (< 200) LDL Cholesterol 84 mg/dL (< 100) HDL Cholesterol 63 mg/dL (40-59) Other Laboratory Tests 08/15/24 04:29 Brief Hx & Hospital Course: 79-year-old female with a known history of Alzheimer dementia, coronary artery disease status post three-vessel CABG, hypertension, dyslipidemia, COPD, congestive heart failure, status post pacemaker who initially presented to the hospital with generalized weakness found to have NSTEMI. Patient was admitted to [facility] started on heparin drip. Patient also has a known history of pacemaker placement in the past. Patient does have known history of CAD status post three-vessel CABG. Patient underwent left heart catheterization where she was found to have patent saphenous vein grafts to RCA and circumflex and internal mammary graft to LAD are patent. Patient's losartan was discontinued as patient's was started on Entresto. Patient is currently cleared by Cardiology to be discharged. Patient was desatting 87% on room air. Denies any chest pain shortness of breaths. Home oxygen will be arranged once oxygen was arranged patient's can be discharged. Patient does have known history of takotsubo syndrome with a cardiomyopathy with EF of 30%. Condition at Discharge: Stable Final Diagnosis/Problems List 1. NSTEMI type 1 status post CAD shows patent grafts 2. CAD status post three-vessel CABG 3. Cardiomyopathy with EF of 30% 4. Status post pacemaker 5. Dyslipidemia 6. Acute kidney injury suspected secondary to vasomotor nephropathy improved 7. Dementia Discharge Disposition: Home with Health Services SNF Discharge Will this Physician continue t: No Discharge Instruct/Medications Diet: Cardiac 2g Na,low cholest Activity: No Restrictions, As Tolerated Follow Up/Referral: Follow up with the PCP in one week Follow up with the Cardiology in one week Medications: Resume home medications except losartan Prescribed atorvastatin, Entresto, Jardiance. Scheduled Aspirin (Aspir-81), 1 TAB PO DAILY, (Reported) Atorvastatin Calcium (Atorvastatin Calcium), 40 MG PO HS Cilostazol (Cilostazol), 100 MG PO DAILY, (Reported) Clopidogrel Bisulfate (Plavix), 1 TAB PO DAILY, (Reported) Dicyclomine Hcl (Dicyclomine Hcl), 10 MG PO TIDWMEALS, (Reported) Donepezil Hydrochloride (Donepezil Hcl), 1 TAB PO DAILY, (Reported) Empagliflozin (Jardiance), 10 MG PO DAILY Furosemide (Lasix), 40 MG PO DAILY, (Reported) Gabapentin (Gabapentin), 1 CAP PO HS, (Reported) Glucosamine Sulfate (Glucosamine), 1,000 MG PO DAILY, (Reported) Latanoprost (Latanoprost), 1 DROP EACHEYE QPM, (Reported) Levothyroxine Sodium (Levothyroxine Sodium), 1 TAB PO DAILY, (Reported) Losartan Potassium (Losartan Potassium), 25 MG PO DAILY, (Reported) Multiple Vitamins W/ Minerals (Centrum Adults), 1 TAB PO DAILY, (Reported) Niacinamide (Niacin), 500 MG PO DAILY, (Reported) Polyethylene Glycol (Miralax 17GM Pwd), 17 GRAMS PO DAILY, (Reported) Sacubitril-Valsartan (Entresto 24-26 mg), 1 TAB PO BID Miscellaneous Medications [place]-3 Fatty Acids (Fish Oil), 1,000 MG PO, (Reported) Discharge Statement: "Patient was advised to return to the ER or call 911 if any headaches, dizziness, shortness of breath, chest pain, abdominal pain, bleeding, fevers, or worsening of medical condition. Patient was counseled about treatment plan, medications, possible side effects, patientverbalized understanding. All questions were answered to the best of my ability. This discharge took greater then 30 minutes in planning, reviewing documentation, counseling the patient, and discussing with other team members." ASSESSMENT ASSESSMENT Assessment 1. NSTEMI type 1 status post CAD shows patent grafts 2. CAD status post three-vessel CABG 3. Hypertension 4. Status post pacemaker 5. Dyslipidemia 6. Acute kidney injury suspected secondary to vasomotor nephropathy improved 7. Dementia Date of Service: Aug 15, 2024 Billing Provider: LESVIA LOPEZ MD Common Visit Codes: NOT BILLABLE LESVIA LOPEZ MD Aug 15, 2024 16:02
[2024-08-15] MEDS ORDERED: DAPA1TAB4 PO (16:22)
== END 2024-08-15 18:06 | disposition home or self-care (01) | DRG 280 ==
LOC: ER 17:19 → EDBD 17:19 → OVERFLOW 21:42 → DOU IN ICU 08-11 04:57
PROVIDERS: ADMIT Nurse Practitioner Family; ATTEND Nurse Practitioner Family
PROC: 4B02XSZ Measurement of Cardiac Pacemaker, External Approach (ICD-10-PCS; 2024-08-11)
PROC: 4A023N7 Measurement of Cardiac Sampling and Pressure, Left Heart, Percutaneous Approach (ICD-10-PCS; principal; 2024-08-13)
PROC: B211YZZ Fluoroscopy of Multiple Coronary Arteries using Other Contrast (ICD-10-PCS; 2024-08-13)
PROC: B215YZZ Fluoroscopy of Left Heart using Other Contrast (ICD-10-PCS; 2024-08-13)
PROC: B218YZZ Fluoroscopy of Left Internal Mammary Bypass Graft using Other Contrast (ICD-10-PCS; 2024-08-13)
PROC: B213YZZ Fluoroscopy of Multiple Coronary Artery Bypass Grafts using Other Contrast (ICD-10-PCS; 2024-08-13)
DX: I21.4 Non-ST elevation (NSTEMI) myocardial infarction (principal); G93.41 Metabolic encephalopathy; N17.0 Acute kidney failure with tubular necrosis; I42.9 Cardiomyopathy, unspecified; I13.0 Hypertensive heart and chronic kidney disease with heart failure and stage 1 through stage 4 chronic kidney disease, or unspecified chronic kidney disease; Z95.1 Presence of aortocoronary bypass graft; I50.9 Heart failure, unspecified; I27.20 Pulmonary hypertension, unspecified; J44.9 Chronic obstructive pulmonary disease, unspecified; I35.2 Nonrheumatic aortic (valve) stenosis with insufficiency; G30.9 Alzheimer's disease, unspecified; E03.9 Hypothyroidism, unspecified; N18.30 Chronic kidney disease, stage 3 unspecified; E11.22 Type 2 diabetes mellitus with diabetic chronic kidney disease; F02.80 Dementia in other diseases classified elsewhere, unspecified severity, without behavioral disturbance, psychotic disturbance, mood disturbance, and anxiety; K21.9 Gastro-esophageal reflux disease without esophagitis; I25.10 Atherosclerotic heart disease of native coronary artery without angina pectoris; Z87.891 Personal history of nicotine dependence; E78.5 Hyperlipidemia, unspecified; Z95.0 Presence of cardiac pacemaker; Z79.84 Long term (current) use of oral hypoglycemic drugs; Z80.8 Family history of malignant neoplasm of other organs or systems; Z90.49 Acquired absence of other specified parts of digestive tract; Z81.1 Family history of alcohol abuse and dependence; Z82.49 Family history of ischemic heart disease and other diseases of the circulatory system; Z88.8 Allergy status to other drugs, medicaments and biological substances
CPT/HCPCS: 36415; 70450; 71045; 74176; 80048; 80053; 80061; 80307; 81001; 82088; 82962; 83735; 83880; 84244; 84443; 84484; 85025; 85610; 85730; 86850; 86900; 86901; 87040; 87081; 93005; 93306; 93459; 96365; 96375; 97110; 97116; 97163; 99152; G0378; J2250; J2470; Q9967

== ENCOUNTER 2025-02-03 16:47 | Inpatient (IN) | payer OTHER ==
[~2025-02-03] VITALS: Ht 170.2 cm; Wt 81.2 kg
[~2025-02-03 16:47] MED LIST changes: +ATOR20TA50 PO; +DAPA1TAB4 PO; -LOSA-533 PO; +SACU1TAB PO
--- NOTE | 2025-02-03 17:27 | ED.PDOC ---
Altered Mental Status HPI Comments Discharge diagnosis from 08/15/24: 1. NSTEMI type 1 status post CAD shows patent grafts 2. CAD status post three-vessel CABG 3. Cardiomyopathy with EF of 30% 4. Status post pacemaker 5. Dyslipidemia 6. Acute kidney injury suspected secondary to vasomotor nephropathy improved HPI: 79 year old female presents to the ED via EMS with a chief complaint of ALOC onset today. Per EMS, patient has a history of Dementia, daughter noticed patient has been altered since the morning with abnormal behavior. For the past 3 days patient has been experiencing nausea, vomiting, diarrhea, was seen at urgent care 2 days ago had negative cardiac workup. Patient had an IA July 2024, symptoms were nausea/vomiting. Patient currently states she has no concerns, daughter states patient is not at baseline. Denies chest pain, shortness of breath, dizziness, headache, fever, chills. No other symptoms or modifying factors present at this time. Initial Vitals BP: 142/62 HR: 69 RR: 16 O2 Sat: 100% Temp: 97.8 F Past Medical history: anemia, CAD, CHF, COPD, DM< HLD, HTN, IA, CKF, thyroid disease, Dementia Past Surgical history: Appendectomy, CABG, Cholecystectomy, Pacemaker Medications: Atorvastatin, aspirin, Lasix, Donepezil, Niacin, Gabapentin, Levothyroxine Social History: Denies smoking, ETOH, and drug use. Allergies: Hydralazine, Morphine HPI: Poor Historian. WILL, 79F: normal exam. pale, murmur, change in mentation per daughter at bedside. no fall or trauma. REVIEW OF SYSTEMS: CONSTITUTIONAL: Denies acute: fever, diaphoresis, chills, HEAD: Denies acute: headache, photophobia Eyes: Denies acute: Double vision, vision loss, eye pain, eye discharge. EARS: Denies acute: tinnitus, hearing loss, ear discharge, ear pain, THROAT: Denies acute: sore throat, swelling, difficulty swallowing , pain with swallowing, change in voice. NECK: Denies acute: neck pain, neck swelling, stiff neck. HEART: Denies acute : chest pain, palpitations, LUNGS: Denies acute: SOB, wheezing, cough, hemoptysis ABDOMEN: Denies acute: abdominal pain, diarrhea, melena , hematemesis, hematochezia SKIN: Denies acute: rash, redness, lesions, itchiness. EXTREMITIES: Denies acute: calf pain, numbness, tingling, weakness, denies pain in extremity. Denies acute: Low back pain. Neuro: Denies acute: focal neurological deficit, motor or sensory focal neurological deficit, tremors, seizure like activity, dizziness, loss of bowel or bladder function, cauda equina like symptoms. : Denies acute: dysuria, hematuria, flank pain, increase in urinary frequency. PSYCH: Denies acute: hallucination, suicidal ideation, homicidal ideation. FEMALE: Denies acute: abnormal vaginal bleeding, foul odor, unusual discharge. PHYSICAL EXAM: General: -----no---acute distress, awake and alert. Head: normocephalic, atraumatic. No raccoon's eyes, no negro sign. Neck: supple, trachea is midline, no swelling. Throat: Normal phonation. Eyes:, no erythema, no purulent discharge, no proptosis, no icterus. Heart: regular rate, regular rhythm, noted murmur. Lungs: no apparent respiratory distress, Able to speak in full sentences. No wheezing, no rhonchi, no crackles. No stridors Clear to auscultation bilaterally. Abdomen: non tender to palpation, non distended, soft, no guarding, no rebound, + bowel sounds. Neuro: Awake, Alert, oriented to name, self, situation, follows commands GCS=15. Speech is normal. Skin: no petechia, no purpura, no cyanosis, slightly-pale, not jaundice. Lower extremities: --no - Pitting edema no deformity, no focal swelling, no calf TTP. Makes eye contact. moves all four extremities. Face: no apparent facial droop. ED COURSE: DISCLAIMER: This medical document was created using an electronic medical record system with voice recognition software and computerized dictation system. Although this document has been carefully reviewed, there might still be some phonetic and typographical errors. Occasional wrong-word or "sound-alike" substitutions may have occurred due to the inherent limitations of voice recognition software. These areas are purely typographical due to imperfections of the software progra ms and do not reflect any compromise in the patient's medical care. Please read the chart carefully and recognize, using context, where these substitutions have occurred. Chief Complaint: ALOC Time Seen by MD: 17:10 Primary Care Provider: UNKNOWN Reviewed Notes: Medications, Allergies Allergies: Coded Allergies: Morphine (Verified Allergy, Unknown, 08/11/24) Hydralazine (Verified Adverse Reaction, Severe, respiratory distress, 03/23/24) Home Meds Active Scripts Dapagliflozin Propanediol (Farxiga) 10 Mg Tab, 10 MG PO DAILY, #60 TAB Prov:LESVIA LOPEZ MD 08/15/24 Sacubitril-Valsartan (Entresto 24-26 mg) 1 Tab Tab, 1 TAB PO BID for 60 Days, #120 TAB Prov:LESVIA LOPEZ MD 08/15/24 Atorvastatin Calcium (ATORVASTATIN CALCIUM) 20 Mg Tab, 40 MG PO HS for 60 Days, #120 TAB Prov:LESVIA LOPEZ MD 08/15/24 Reported Medications Dicyclomine Hcl (Dicyclomine Hcl) 10 Mg Cap, 10 MG PO TIDWMEALS, MG 03/22/24 Cilostazol (Cilostazol) 100 Mg Tab, 100 MG PO DAILY, MG 03/22/24 Glucosamine Sulfate (Glucosamine) 1,000 Mg Cap, 1000 MG PO DAILY 03/16/22 [place]-3 Fatty Acids (Fish Oil) 1,000 Mg Cap, 1000 MG PO 03/16/22 Polyethylene Glycol (MIRALAX 17GM PWD) 17 Gm Pw, 17 GRAMS PO DAILY 03/16/22 Multiple Vitamins W/ Minerals (Centrum Adults) 1 Tab Tab, 1 TAB PO DAILY for SUPPLEMENT, TAB 10/21/21 Gabapentin (Gabapentin) 300 Mg Cap, 1 CAP PO HS for NEUROPATHY, #90 CAP 5 Refills 10/21/21 Levothyroxine Sodium (Levothyroxine Sodium) 75 Mcg Tab, 1 TAB PO DAILY for LOW THYROID, #30 TAB 5 Refills 10/21/21 Niacinamide (NIACIN) 500 Mg Tab, 500 MG PO DAILY for SUPPLEMENT, TAB 10/21/21 Donepezil Hydrochloride (DONEPEZIL HCL) 5 Mg Tab, 1 TAB PO DAILY for COGNITIVE IMPAIRMENT, #30 TAB 5 Refills 10/21/21 Furosemide (Lasix) 40 Mg Tab, 40 MG PO DAILY for EDEMA, TAB 10/21/21 Clopidogrel Bisulfate (Plavix) 75 Mg Tab, 1 TAB PO DAILY for UNSTABLE ANGINA, #90 TAB 1 Refill 10/21/21 Aspirin (Aspir-81) 81 Mg Tab, 1 TAB PO DAILY, #30 TAB 5 Refills 07/13/15 Latanoprost (LATANOPROST) 0.005 % Billie, 1 DROP EACHEYE QPM for glaucoma, #7.5 ML 3 Refills 06/28/15 Information Source: Patient, Relative, Emergency Med Personnel Mode of Arrival: EMS Timing: Days Duration: Since onset Past Medical History PAST MEDICAL HISTORY: Anemia, CAD, CHF, CKF, COPD, DM, High Lipids, HTN, Thyroid Surgical History: Appendectomy, CABG, Cholecystectomy, Pacemaker DREDGE WORKER History: No 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 Was a procedure done?: No X-Ray, Labs, Meds, VS Vital Signs Date Time Temp Pulse Resp B/P (MAP) Pulse Ox O2 Delivery O2 Flow Rate FiO2 02/03/25 19:00 70 02/03/25 18:14 72 16 100 Nasal Cannula* 2 28 02/03/25 18:10 71 18 197/69 (111) 99 02/03/25 17:30 98.4 72 16 196/52 (100) 100 98.4 02/03/25 17:00 97.8 69 16 142/62 100 97.8 02/03/25 16:57 73 Lab Test 02/03/25 20:30 02/03/25 18:27 02/03/25 17:35 02/03/25 17:32 Range/Units Troponin I High Sensitivity Pending 47 *H 58 *H </=34 ng/L White Blood Count 6.1 4.4-10.8 10^3/uL Red Blood Count 4.12 4.0-5.20 10^6/uL Hemoglobin 12.6 12.2-16.2 g/dL Hematocrit 39.2 36.0-46.0 % Mean Corpuscular Volume 95.2 80.0-100.0 fL Mean Corpuscular Hemoglobin 30.7 28.0-32.0 pg Mean Corpuscular Hemoglobin Concent 32.3 32.0-36.0 g/dL Red Cell Distribution Width 14.8 H 11.8-14.3 % Platelet Count 143 140-450 10^3/uL Mean Platelet Volume 7.8 6.9-10.8 fL Neutrophils (%) (Auto) 78.3 37.0-80.0 % Lymphocytes (%) (Auto) 16.2 10.0-50.0 % Monocytes (%) (Auto) 4.6 0.0-12.0 % Eosinophils (%) (Auto) 0.6 0.0-7.0 % Basophils (%) (Auto) 0.3 0.0-2.0 % Neutrophils # (Auto) 4.8 1.6-8.6 10 ^3/uL Lymphocytes # (Auto) 1.0 0.4-5.4 10 ^3/uL Monocytes # (Auto) 0.3 0-1.3 10 ^3/uL Eosinophils # (Auto) 0 0-0.8 10 ^3/uL Basophils # (Auto) 0 0-0.2 10 ^3/uL Nucleated Red Blood Cells 0.0 % Sodium Level 138 136-145 mmol/L Potassium Level 5.2 H 3.5-5.1 mmol/L Chloride Level 105 98-107 mmol/L Carbon Dioxide Level 28 20-31 mmol/L Anion Gap 5 5-15 Blood Urea Nitrogen 36 H 9-23 mg/dL Creatinine 1.78 H 0.550-1.02 mg/dL Glomerular Filtration Rate Calc 29 >90 mL/min BUN/Creatinine Ratio 20.2 H 10.0-20.0 Serum Glucose 132 H 74-106 mg/dL Lactic Acid Level 0.9 0.4-2.0 mmol/L Calcium Level 9.9 8.7-10.4 mg/dL Total Bilirubin 0.3 0.2-1.0 mg/dL Aspartate Amino Transferase (AST) 41 H 13-40 U/L Alanine Aminotransferase (ALT) 11 7-40 U/L Alkaline Phosphatase 80 46-116 U/L Total Protein 6.8 5.7-8.2 g/dL Albumin 4.0 3.2-4.8 g/dL Urine Color Yellow Yellow Urine Clarity Clear Clear Urine pH 5.5 5.0-9.0 Urine Specific [place] 1.018 1.001-1.035 Urine Protein 2+ H Negative Urine Ketones Negative Negative Urine Blood Negative Negative /uL Urine Nitrite Negative Negative Urine Bilirubin Negative Negative Urine Urobilinogen Normal Negative mg/dL Urine Leukocyte Esterase Negative Negative /uL Urine RBC <1 0 - 4 /hpf Urine Microscopic WBC 1 0-5 /HPF Urine Squamous Epithelial Cells Few <5 /hpf Urine Amorphous Crystals Few None Seen /hpf Urine Bacteria None seen None Seen /hpf Urine Hyaline Casts Few 0 - 2 /lpf Urine Glucose 4+ H Normal mg/dL Current Medications Medications (Trade) Dose Ordered Sig/Jorje Route Start Time Stop Time Status Last Admin Sodium Chloride 500 ml @ 500 mls/hr Q1H ONCE IV 02/03/25 17:30 02/03/25 18:29 DC 02/03/25 20:15 Ondansetron HCl (Zofran) 8 mg ONCE ONCE IV 02/03/25 17:30 02/03/25 17:31 DC 02/03/25 20:16 Ceftriaxone Sodium 50 ml @ 100 mls/hr ONCE ONCE IV 02/03/25 18:30 02/03/25 18:59 DC 02/03/25 20:15 Aspirin (Ecotrin Enteric Coated Tablet) 325 mg ONCE ONCE PO 02/03/25 18:45 02/03/25 18:46 DC 02/03/25 20:19 Sacubitril/ Valsartan (Entresto 24-26 Mg tab) 1 tab STAT ONCE PO 02/03/25 20:15 02/03/25 20:26 DC 02/03/25 20:30 [place] [id number] Ph: [phone] DIAGNOSTIC IMAGING Diagnostic Imaging Report : [id number] Signed PATIENT: GENTRY SOLIS ACCT: [id number] UNIT: [id number] : 1945 LOC: ER ROOM / BED: / AGE / SEX: 79 / F ADM STATUS: REG ER SERVICE [id number] ORDERING PHYSICIAN: CHRISTIAN DENNEY DO PROCEDURE(s): CXRP - CHEST PORTABLE REASON: weak, N/V ams ORDER NUMBER(s): [id number], ACCESSION NUMBER(s): [id number] CHEST RADIOGRAPH INDICATION: weak, N/V ams TECHNIQUE: Single frontal view of the chest was obtained COMPARISON: XY CHEST PORTABLE on DOS: 08/10/24, XY CHEST PORTABLE on DOS: 03/22/24, CHEST XRAY 1 VIEW on DOS: 02/05/22 FINDINGS: Lines and Tubes: None Lungs: Right lower lung zone opacity. Pleura: No effusion. No pneumothorax. Cardiomediastinal contours: Heart size is within normal limits with moderate atherosclerotic calcification and uncoiling of the aorta. Aortic valvular replacement. Leadless pacemaker is noted overlying the left lower lung zone. Bones: No acute osseous abnormality. IMPRESSION: Right lower lung zone opacity which may represent pneumonia in the right clinical setting. ATED BY: ANGY DELCID DO DICTATED DATE/TIME: 02/03/251804 SIGNED BY: ANGY DELCID DO SIGNED DATE/TIME: 02/03/251804 CC: Time of 1ST Reevaluation: 17:40 Reevaluation 1ST: Unchanged Time of 2ND Reevaluation: 21:02 (The case was discussed with the admitting team (HPI, physical exam, labs and diagnostic tests that were available at the time of disposition, ED course, treatment plan) on the phone. They agreed to admit the patient to their service and assume care of this patient from this point forward. TENTERER Kym Seay.) Patient Education/Counseling: Diagnosis, Treatment Family Education/Counseling: Diagnosis, Treatment Departure 1 Departure Time of Disposition: 18:28 Impression: Primary Impression: Altered mental status Additional Impressions: Elevated troponin Pneumonia Disposition: ADMITTED INPATIENT Condition: Guarded Discharged With: Self Critical Care Note Critical Care Time?: No I personally scribed for CHRISTIAN DENNEY DO ([email or web address]) on 02/03/25 at 17:27. Electronically submitted by Brooke Patiño ([email or web address]). I personally scribed for CHRISTIAN DENNEY DO ([email or web address]) on 02/03/25 at 17:32. Electronically submitted by Brooke Patiño ([email or web address]). I personally scribed for CHRISTIAN DENNEY DO ([email or web address]) on 02/03/25 at 18:32. Electronically submitted by Brooke Patiño ([email or web address]). I personally scribed for CHRISTIAN DENNEY DO ([email or web address]) on 02/03/25 at 18:35. Electronically submitted by Brooke Patiño ([email or web address]). I personally scribed for CHRISTIAN DENNEY DO ([email or web address]) on 02/03/25 at 21:05. Electronically submitted by Brooke Patiño ([email or web address]). CHRISTIAN DENNEY DO Feb 03, 2025 17:27
[2025-02-03 17:54] LABS: Hematocrit 39.2 % (36.0-46.0); Hemoglobin 12.6 g/dL (12.2-16.2); Mean Corpuscular Hemoglobin 30.7 pg (28.0-32.0); Mean Corpuscular Volume 95.2 fL (80.0-100.0); Nucleated Red Blood Cells % 0.0 %
[2025-02-03 18:07] LABS: Urine Amorphous Crystal FEW /hpf (None Seen); Urine Protein, UAD 2+ (Negative)
--- NOTE | 2025-02-03 18:08 | DVH ---
CHEST RADIOGRAPH INDICATION: weak, N/V ams TECHNIQUE: Single frontal view of the chest was obtained COMPARISON: XY CHEST PORTABLE on DOS: 08/10/24, XY CHEST PORTABLE on DOS: 03/22/24, CHEST XRAY 1 VIEW on DOS: 02/05/22 FINDINGS: Lines and Tubes: None Lungs: Right lower lung zone opacity. Pleura: No effusion. No pneumothorax. Cardiomediastinal contours: Heart size is within normal limits with moderate atherosclerotic calcification and uncoiling of the aorta. Aortic valvular replacement. Leadless pacemaker is noted overlying the left lower lung zone. Bones: No acute osseous abnormality. IMPRESSION: Right lower lung zone opacity which may represent pneumonia in the right clinical setting.
[2025-02-03 18:10] LABS: Alanine Aminotransferase 11 U/L (7-40); Albumin 4.0 g/dL (3.2-4.8); Alkaline Phosphatase 80 U/L (46-116); Anion Gap 5 (5-15); BUN/Creatinine Ratio 20.2 (10.0-20.0); Calcium 9.9 mg/dL (8.7-10.4); Carbon Dioxide 28 mmol/L (20-31); Chloride 105 mmol/L (98-107); Sodium 138 mmol/L (136-145); Total Protein 6.8 g/dL (5.7-8.2)
[2025-02-03 18:11] LABS: Bilirubin, Total 0.3 mg/dL (0.2-1.0); Blood Urea Nitrogen 36 mg/dL (9-23); Glucose 132 mg/dL (74-106); Potassium 5.2 mmol/L (3.5-5.1)
[2025-02-03 18:14] VITALS: PULSE 72; RESP 16; O2SAT 100
[2025-02-03 19:30] VITALS: PULSE 67; RESP 10; O2SAT 98
[2025-02-03] MEDS: SODIUM CHLORIDE 0.9% 500 ML IV ONE (20:15)
[2025-02-03] MEDS: ONDANSETRON HCL 4 MG/2 ML VIAL IV ONE (20:16)
[2025-02-03] MEDS: ASPirin-EC 325mg tab PO ONE (20:19)
[2025-02-03] MEDS: ONDANSETRON HCL 4 MG/2 ML VIAL ONE (20:19)
[2025-02-03] MEDS: SACUBITRIL-VALSARTAN 24mg/26mg TAB PO ONE (20:30)
[2025-02-03] MEDS ORDERED: ACETAMINOPHEN 325 MG TAB PO PRN (21:15)
[2025-02-03] MEDS ORDERED: hydrALAZINE HCL 20 MG/ML VL IV PRN (21:15)
[2025-02-03] MEDS ORDERED: ONDANSETRON HCL 4 MG/2 ML VIAL IV PRN (21:15)
[2025-02-03] MEDS: LORazepam 0.5 MG TAB PO ONE (21:16)
--- NOTE | 2025-02-03 21:51 | DVH ---
EXAM: CT HEAD WITHOUT CONTRAST INDICATION: aloc TECHNIQUE: CT of the head without intravenous contrast. Radiation Dose : 1. Head: CT Dose: CTDI volume is 57.9 mGy. Dose-length product is 1077.2 mGy*cm The dose indicators for CT are the volume Computed Tomography (CT) Dose Index (CTDIvol) and the Dose Length Product (DLP), and are measured in units of mGy and mGy-cm, respectively. These indicators are not patient dose, but values generated from the CT scanner acquisition factors. The report includes radiation exposure data for exposures received during this examination. COMPARISON: CT HEAD WITHOUT CONTRAST on DOS: 08/10/24, MRI BRAIN HEAD WO CONTRAST on DOS: 03/24/24, CT HEAD WITHOUT CONTRAST on DOS: 03/22/24 FINDINGS: Motion artifact degrades fine detail. No acute territorial infarct, intracranial hemorrhage, or mass effect. There are global involutional changes with compensatory prominence of the ventricles and sulci. Patchy periventricular and subcortical white matter hypoattenuation is nonspecific but may be related to small vessel ischemic disease. Bilateral lens implants. Minimal mucosal thickening within the right maxillary antrum. Mild mucosal thickening within the ethmoid air cells. The osseous structures are unremarkable. IMPRESSION: 1. No acute territorial infarct, intracranial hemorrhage, or mass effect. 2. Age-related involutional changes. Chronic microvascular changes. 3. If clinical symptoms persist, MRI may be beneficial in further evaluation. Radiation optimization: All CT scans at this facility use at least one of these dose optimization techniques: automated exposure control mA and/or kV adjustment per patient size (includes targeted exams where dose is matched to clinical indication) or iterative reconstruction.
[2025-02-03 22:22] LABS: COVID19 ANTIGEN SOFIA FIA NEGATIVE (NEGATIVE)
[2025-02-03] MEDS: HYDROcodone-ACET 5/325MG TAB PO PRN (22:33)
[2025-02-03] MEDS ORDERED: NITROGLYCERIN 0.4 MG SL TAB SL PRN (22:45)
[2025-02-04] VITALS (10 sets, daily range): BP systolic 126–165; BP diastolic 46–77; PULSE 50–76; RESP 16–18; TEMP 97–98.1; O2SAT 92–100
[2025-02-04] MEDS: ENOXAPARIN SOD 100 MG/1 ML SYRINGE SC ONE (00:04)
--- NOTE | 2025-02-04 00:57 | DVHHP2 ---
Admitting Diagnosis: MERA, Elevated troponin, Pneumonia History of Present Illness Exam Limitations: Clinical condition (aloc) HPI Mrs. 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 Per ED HPI notes, daughter noticed patient has been altered since yesterday morning with abnormal behavior. For the past 3 days patient has been experiencing nausea, vomiting, diarrhea, was seen at urgent care 2 days ago had negative cardiac workup. Patient had an IN July 2024, symptoms were nausea/vomiting. Patient reports chest pain, dyspnea, sore throat. Denies dizziness, headache, fever, chills. No other symptoms or modifying factors present at this time. Patient found to have mildly elevated troponin levels. Patient admitted for further evaluation. Home Meds Active Scripts Dapagliflozin Propanediol (Farxiga) 10 Mg Tab, 10 MG PO DAILY, #60 TAB Prov:LESVIA LOPEZ MD 08/15/24 Sacubitril-Valsartan (Entresto 24-26 mg) 1 Tab Tab, 1 TAB PO BID for 60 Days, #120 TAB Prov:LESVIA LOPEZ MD 08/15/24 Atorvastatin Calcium (ATORVASTATIN CALCIUM) 20 Mg Tab, 40 MG PO HS for 60 Days, #120 TAB Prov:LESVIA LOPEZ MD 08/15/24 Reported Medications Famotidine (Famotidine) 20 Mg Tab, 20 MG PO DAILY for 30 Days, MG 02/04/25 Pantoprazole Sodium Sesquihydr (Pantoprazole Sodium) 40 Mg Tab, 40 MG PO, TAB 02/04/25 Melatonin (KP MELATONIN) 3 Mg Tab, 3 MG PO, TAB 02/04/25 Levodopa W/Carbidopa (SINEMET 25/100MG) 1 Tab Tb, 1 TAB PO TID, TAB 02/04/25 Donepezil Hydrochloride (DONEPEZIL HCL) 10 Mg Tab, 10 MG PO QHSP for 30 Days, MG 02/04/25 Furosemide (Furosemide) 20 Mg Tab, 20 MG PO DAILY for 30 Days, MG 02/04/25 Dicyclomine Hcl (Dicyclomine Hcl) 10 Mg Cap, 10 MG PO TIDWMEALS, MG 03/22/24 Cilostazol (Cilostazol) 100 Mg Tab, 100 MG PO DAILY, MG 03/22/24 [place]-3 Fatty Acids (Fish Oil) 1,000 Mg Cap, 1000 MG PO 03/16/22 Polyethylene Glycol (MIRALAX 17GM PWD) 17 Gm Pw, 17 GRAMS PO DAILY 03/16/22 Multiple Vitamins W/ Minerals (Centrum Adults) 1 Tab Tab, 1 TAB PO DAILY for SUPPLEMENT, TAB 10/21/21 Gabapentin (Gabapentin) 300 Mg Cap, 1 CAP PO HS for NEUROPATHY, #90 CAP 5 Refills 10/21/21 Levothyroxine Sodium (Levothyroxine Sodium) 75 Mcg Tab, 1 TAB PO DAILY for LOW THYROID, #30 TAB 5 Refills 10/21/21 Niacinamide (NIACIN) 500 Mg Tab, 500 MG PO DAILY for SUPPLEMENT, TAB 10/21/21 Clopidogrel Bisulfate (Plavix) 75 Mg Tab, 1 TAB PO DAILY for UNSTABLE ANGINA, #90 TAB 1 Refill 10/21/21 Aspirin (Aspir-81) 81 Mg Tab, 1 TAB PO DAILY, #30 TAB 5 Refills 07/13/15 Latanoprost (LATANOPROST) 0.005 % Billie, 1 DROP EACHEYE QPM for glaucoma, #7.5 ML 3 Refills 06/28/15 Discontinued Reported Medications Glucosamine Sulfate (Glucosamine) 1,000 Mg Cap, 1000 MG PO DAILY 03/16/22 Donepezil Hydrochloride (DONEPEZIL HCL) 5 Mg Tab, 1 TAB PO DAILY for COGNITIVE IMPAIRMENT, #30 TAB 5 Refills 10/21/21 Furosemide (Lasix) 40 Mg Tab, 40 MG PO DAILY for EDEMA, TAB 10/21/21 Past Medical History Cardiac: CAD, HTN, IN, Cardiomyopathy Pulmonary: No pertinent Hx Central Nervous System: No pertinent Hx GI: No pertinent Hx Hemotology/Oncology: No pertinent Hx Hepatobiliary: No pertinent Hx Psychiatric: No pertinent Hx Musculoskeletal: No pertinent Hx Rheumotologic: No pertinent Hx Infectious Disease: No peritnent Hx ENT: No pertinent Hx Renal/: CKD Endocrine: Hypothyroidism Dermatology: No pertinent Hx Past Surgical History: CABG Patient Family History: Alcoholism G8 FATHER Cancer G8 SISTER Cardiovascular disease G8 MOTHER G8 FATHER Family history: Cardiovascular disease Hypertension G8 FATHER Smoker: No Hx (Negative) Alocohol: None Drugs: None Lives with: With family Domestic Violence: Neg Review of Systems Pulmonary/Respiratory: Dyspnea Cardiovascular: Chest Pain H&P Exam Vital Signs Vital Signs Date Time Temp Pulse Resp B/P (MAP) Pulse Ox O2 Delivery O2 Flow Rate FiO2 02/03/25 22:40 65 15 124/35 (64) 99 02/03/25 20:00 98.0 98.0 02/03/25 19:30 Nasal Cannula* 2 28 General Appeara: Well developed, Well nourished Head Exam: Normal inspection Neck Exam: Normal inspection, Non-tender, Normal alignment Eye Exam: bilateral eye Normal inspection, bilateral eye PERRL, bilateral eye EOMI Ear Exam: bilateral ear Auricle normal Nasal Exam: Normal inspection Mouth: Normal Inspection Pulmonary/Respiratory: Normal inspection, Normal breath sounds, Chest non- tender, Decreased breath sounds Cardiovascular/Chest: Normal inspection, Regular rate, Normal Rhythm Peripheral Pulses: 2+ dorsalis pedis (R), 2+ dorsalis pedis (L), 2+ Radial (R), 2+ Radial (L) Abdominal Exam: Normal bowel sounds, Soft, 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 hearing, Normal speech, PERRL Motor/Sensory: Normal sensory function, Normal motor function Neuro/Mental St: Alert, Disoriented Appearance: Appropriate appearance, Memory impairment Eye contact/ Speech: Cooperative Skin Exam: Normal inspection, Normal color, Warm/dry SEPSIS Sepsis Screen Date sepsis recognized/suspect: Feb 03, 2025 Time Sepsis recognized/suspect: 1929 Recent Procedure: No On Antibiotic Therapy: No Respiratory Rate >20: No Heart Rate >90: No Temp<36 C (96.8 F) or >38.3 C: No SBP <90 or MAP <65 mmHG: No New Acute Mental Status Change: No Is the patient on CPAP, BIPAP,: No Physician Orders Grocery Carrier (02/03/25 ) Electrocardigram (02/03/25 17:25) Chest Portable (02/03/25 17:25) Head Without Contrast (02/03/25 21:00) Full Code (02/03/25 21:03) Troponin-I Hs (02/04/25 06:00) Troponin-I Hs (02/04/25 14:00) Troponin-I Hs (02/04/25 22:00) Ondansetron Hcl (Zofran) (02/03/25 21:15) Rapid Influenza A&B (02/03/25 21:03) Doxycycline 100mg/100ml (Vibramycin) (02/04/25 10:00) Aspirin Chewable Tablet (02/04/25 10:00) Acetaminophen Tablet (Tylenol Tablet) (02/03/25 21:15) Pantoprazole (Protonix) (02/04/25 10:00) Hydrocodone-Acet 5/325mg Tab ([place] 5/32 (02/03/25 21:15) Fall Risk Precautions In Place QSHIFT (02/03/25 21:03) Admit (02/03/25 22:44) Stat Ekg For Chest Pain (02/03/25 22:44) Notify Md Of Changes From Base (02/03/25 22:44) Mechanotherapist For 24 Hours (02/03/25 22:44) Emergency Dysrhythmia Protocol (02/03/25 22:44) Rhythm Strips Once Every Shift (02/03/25 22:44) Oxygen By Nasal Cannula (02/03/25 22:44) Nitroglycerin Sublingual (Ntrostat Subli (02/03/25 22:45) * Cardiology Consult (02/03/25 22:44) Communication Order (02/03/25 22:48) Vital Signs Date Time Temp Pulse Resp B/P (MAP) Pulse Ox O2 Delivery O2 Flow Rate FiO2 02/03/25 22:40 65 15 124/35 (64) 99 02/03/25 21:05 73 02/03/25 21:00 68 11 165/50 (88) 98 02/03/25 20:00 98.0 67 10 146/45 (78) 99 98.0 02/03/25 19:30 67 10 98 Nasal Cannula* 2 28 02/03/25 19:00 70 02/03/25 18:14 72 16 100 Nasal Cannula* 2 28 02/03/25 18:10 71 18 197/69 (111) 99 02/03/25 17:30 98.4 72 16 196/52 (100) 100 98.4 02/03/25 17:00 97.8 69 16 142/62 100 97.8 02/03/25 16:57 73 Laboratory Tests Test 02/03/25 17:35 Lactic Acid Level 0.9 mmol/L (0.4-2.0) White Blood Count 6.1 10^3/uL (4.4-10.8) Medications Medications Dose Ordered Sig/Jorje Route Start Time Stop Time Status Last Admin Dose Admin Aspirin 325 mg ONCE ONCE PO 02/03/25 18:45 02/03/25 18:46 DC 02/03/25 20:19 325 MG Ceftriaxone Sodium 50 ml @ 100 mls/hr ONCE ONCE IV 02/03/25 18:30 02/03/25 18:59 DC 02/03/25 20:15 100 MLS/HR Enoxaparin Sodium 80 mg ONCE ONCE SC 02/03/25 23:00 02/03/25 23:01 DC 02/04/25 00:04 80 MG Lorazepam 0.5 mg ONCE ONCE PO 02/03/25 21:00 02/03/25 21:01 DC 02/03/25 21:16 0.5 MG Ondansetron HCl 8 mg ONCE ONCE IV 02/03/25 17:30 02/03/25 17:31 DC 02/03/25 20:16 8 MG Sacubitril/ Valsartan 1 tab STAT ONCE PO 02/03/25 20:15 02/03/25 20:26 DC 02/03/25 20:30 1 TAB Sodium Chloride 500 ml @ 500 mls/hr Q1H ONCE IV 02/03/25 17:30 02/03/25 18:29 DC 02/03/25 20:15 500 MLS/HR Labs/Xrays Labs Test 02/04/25 00:05 02/03/25 21:59 02/03/25 20:30 02/03/25 17:35 Range/Units SARS-CoV-2 Antigen (Rapid) Negative NEGATIVE Troponin I High Sensitivity 54 *H </=34 ng/L Thyroid Stimulating Hormone (TSH) 0.96 0.55-4.78 uIU/mL White Blood Count 6.1 4.4-10.8 10^3/uL Red Blood Count 4.12 4.0-5.20 10^6/uL Hemoglobin 12.6 12.2-16.2 g/dL Hematocrit 39.2 36.0-46.0 % Mean Corpuscular Volume 95.2 80.0-100.0 fL Mean Corpuscular Hemoglobin 30.7 28.0-32.0 pg Mean Corpuscular Hemoglobin Concent 32.3 32.0-36.0 g/dL Red Cell Distribution Width 14.8 H 11.8-14.3 % Platelet Count 143 140-450 10^3/uL Mean Platelet Volume 7.8 6.9-10.8 fL Neutrophils (%) (Auto) 78.3 37.0-80.0 % Lymphocytes (%) (Auto) 16.2 10.0-50.0 % Monocytes (%) (Auto) 4.6 0.0-12.0 % Eosinophils (%) (Auto) 0.6 0.0-7.0 % Basophils (%) (Auto) 0.3 0.0-2.0 % Neutrophils # (Auto) 4.8 1.6-8.6 10 ^3/uL Lymphocytes # (Auto) 1.0 0.4-5.4 10 ^3/uL Monocytes # (Auto) 0.3 0-1.3 10 ^3/uL Eosinophils # (Auto) 0 0-0.8 10 ^3/uL Basophils # (Auto) 0 0-0.2 10 ^3/uL Nucleated Red Blood Cells 0.0 % Sodium Level 138 136-145 mmol/L Potassium Level 5.2 H 3.5-5.1 mmol/L Chloride Level 105 98-107 mmol/L Carbon Dioxide Level 28 20-31 mmol/L Anion Gap 5 5-15 Blood Urea Nitrogen 36 H 9-23 mg/dL Creatinine 1.78 H 0.550-1.02 mg/dL Glomerular Filtration Rate Calc 29 >90 mL/min BUN/Creatinine Ratio 20.2 H 10.0-20.0 Serum Glucose 132 H 74-106 mg/dL Lactic Acid Level 0.9 0.4-2.0 mmol/L Calcium Level 9.9 8.7-10.4 mg/dL Total Bilirubin 0.3 0.2-1.0 mg/dL Aspartate Amino Transferase (AST) 41 H 13-40 U/L Alanine Aminotransferase (ALT) 11 7-40 U/L Alkaline Phosphatase 80 46-116 U/L Total Protein 6.8 5.7-8.2 g/dL Albumin 4.0 3.2-4.8 g/dL Test 02/03/25 17:32 Range/Units Urine Color Yellow Yellow Urine Clarity Clear Clear Urine pH 5.5 5.0-9.0 Urine Specific [place] 1.018 1.001-1.035 Urine Protein 2+ H Negative Urine Ketones Negative Negative Urine Blood Negative Negative /uL Urine Nitrite Negative Negative Urine Bilirubin Negative Negative Urine Urobilinogen Normal Negative mg/dL Urine Leukocyte Esterase Negative Negative /uL Urine RBC <1 0 - 4 /hpf Urine Microscopic WBC 1 0-5 /HPF Urine Squamous Epithelial Cells Few <5 /hpf Urine Amorphous Crystals Few None Seen /hpf Urine Bacteria None seen None Seen /hpf Urine Hyaline Casts Few 0 - 2 /lpf Urine Glucose 4+ H Normal mg/dL Assessment/Plan Problem List: (1) Elevated troponin (2) Pneumonia (3) Altered mental status (4) CKD (chronic kidney disease) stage 3, GFR 30-59 ml/min Plan This is a 79 yo female with listed past medical history in [facility] who presents with increased ALOC. Patient found to have 1. Elevated troponin levels 2. MERA 3. ALOC 4. Pneumonia 5. Chronic Cardiomyopathy 6. Chronic Hypertension 7. Dementia / Alzheimer's disease 8. COPD without exacerbation 9. Hypothyroid disease Plan Admit Telemetry unit observe overnight Cardiology consultation, trend troponin levels ASA , Statin 2D echo last 08/06 EF 30% IV antibiotics Supplemental oxygen as needed to keep 02 saturations above 92% Daily BMP Fall precautions GI ppx DVT ppx Discussed all above with patient who verbalizes understanding. Discussed with supervising MD. Plan discussed with: Patient, Other Code Visit Code Visit Total Time (mins): 45 Additional Comments Additional Comments Additional Comments Patient's chart is reviewed. Patient is seen evaluated and admitted by nurse practitioner drawing tracer. I agree with her evaluation, documentation, assessment and care plan as outlined. Patient is seen by me in person this afternoon. Discussed with the patient's/her daughter along with the nurse at bedside regarding care plan. GUILLE ASHER Feb 04, 2025 00:57 JENSEN BAEZ MD Feb 04, 2025 18:18
[2025-02-04] MEDS ORDERED: DONE1TAB88 PO (09:11)
[2025-02-04] MEDS ORDERED: CAR25T PO (09:11)
[2025-02-04] MEDS ORDERED: FURO20TA3 PO (09:11)
[2025-02-04] MEDS ORDERED: PANT40T PO (09:11)
[2025-02-04] MEDS ORDERED: MELA3TAB27 PO (09:11)
[2025-02-04] MEDS ORDERED: FAMO-12 PO (09:11)
--- NOTE | 2025-02-04 10:07 | DVHINCON2 ---
Date Seen: Feb 04, 2025 Referring Physician MATTEO Seay Reason for Consultation elevated troponin History of Present Illness Patient is a 79-year-old female who was brought to the hospital with a chief complaint of ALOC onset yesterday. Patient reported that her dementia got worse and she was not feeling well, Per ED HPI notes, daughter noticed patient has been altered since yesterday morning with abnormal behavior. For the past 3 days patient has been experiencing nausea, vomiting, diarrhea, was seen at urgent care 2 days ago had negative cardiac workup. Patient reported of chest pain in the upper substernal area, no worsening on exertion, comes on at rest and she has had this pain for a while on and off. Denies dizziness, headache, fever, chills. No other symptoms or modifying factors present at this time PMHx: HFrEF ( Echo from 07/2024 LVEF 30%) , dementia, coronary artery disease (status post CABG in 2011), aortic stenosis (status post TAVR in 2022 and subsequently patient in 2023), status post pacemaker (leadless single-chamber ventricular pacing, for backup, placed on 30 August 2024), hypothyroidism, hypertension, diet-controlled diabetes mellitus PSHx: Endarterectomy left-sided (2 to significant), CABG (in 2012) pacemaker in July 2024 Home medication: Aspirin, cilostazol, clopidogrel, donepezil, Lasix 40 mg, levothyroxine 25, losartan 25, atorvastatin 40, gabapentin 300, carbidopa/levodopa Allergic history: Hydralazine Morphine Past Medical History As per HPI Past Surgical History As per HPI Family History: Alcoholism G8 FATHER Cancer G8 SISTER Cardiovascular disease G8 MOTHER G8 FATHER Family history: Cardiovascular disease Hypertension G8 FATHER Family History As per HPI Social History As per HPI Allergies: Coded Allergies: Morphine (Verified Allergy, Unknown, 08/11/24) Hydralazine (Verified Adverse Reaction, Severe, respiratory distress, 03/23/24) Home Meds Active Scripts Dapagliflozin Propanediol (Farxiga) 10 Mg Tab, 10 MG PO DAILY, #60 TAB Prov:LESVIA LOPEZ MD 08/15/24 Sacubitril-Valsartan (Entresto 24-26 mg) 1 Tab Tab, 1 TAB PO BID for 60 Days, #120 TAB Prov:LESVIA LOPEZ MD 08/15/24 Atorvastatin Calcium (ATORVASTATIN CALCIUM) 20 Mg Tab, 40 MG PO HS for 60 Days, #120 TAB Prov:LESVIA LOPEZ MD 08/15/24 Reported Medications Famotidine (Famotidine) 20 Mg Tab, 20 MG PO DAILY for 30 Days, MG 02/04/25 Pantoprazole Sodium Sesquihydr (Pantoprazole Sodium) 40 Mg Tab, 40 MG PO, TAB 02/04/25 Melatonin (KP MELATONIN) 3 Mg Tab, 3 MG PO, TAB 02/04/25 Levodopa W/Carbidopa (SINEMET 25/100MG) 1 Tab Tb, 1 TAB PO TID, TAB 02/04/25 Donepezil Hydrochloride (DONEPEZIL HCL) 10 Mg Tab, 10 MG PO QHSP for 30 Days, MG 02/04/25 Furosemide (Furosemide) 20 Mg Tab, 20 MG PO DAILY for 30 Days, MG 02/04/25 Dicyclomine Hcl (Dicyclomine Hcl) 10 Mg Cap, 10 MG PO TIDWMEALS, MG 03/22/24 Cilostazol (Cilostazol) 100 Mg Tab, 100 MG PO DAILY, MG 03/22/24 [place]-3 Fatty Acids (Fish Oil) 1,000 Mg Cap, 1000 MG PO 03/16/22 Polyethylene Glycol (MIRALAX 17GM PWD) 17 Gm Pw, 17 GRAMS PO DAILY 03/16/22 Multiple Vitamins W/ Minerals (Centrum Adults) 1 Tab Tab, 1 TAB PO DAILY for SUPPLEMENT, TAB 10/21/21 Gabapentin (Gabapentin) 300 Mg Cap, 1 CAP PO HS for NEUROPATHY, #90 CAP 5 Refills 10/21/21 Levothyroxine Sodium (Levothyroxine Sodium) 75 Mcg Tab, 1 TAB PO DAILY for LOW THYROID, #30 TAB 5 Refills 10/21/21 Niacinamide (NIACIN) 500 Mg Tab, 500 MG PO DAILY for SUPPLEMENT, TAB 10/21/21 Clopidogrel Bisulfate (Plavix) 75 Mg Tab, 1 TAB PO DAILY for UNSTABLE ANGINA, #90 TAB 1 Refill 10/21/21 Aspirin (Aspir-81) 81 Mg Tab, 1 TAB PO DAILY, #30 TAB 5 Refills 07/13/15 Latanoprost (LATANOPROST) 0.005 % Billie, 1 DROP EACHEYE QPM for glaucoma, #7.5 ML 3 Refills 06/28/15 Discontinued Reported Medications Glucosamine Sulfate (Glucosamine) 1,000 Mg Cap, 1000 MG PO DAILY 03/16/22 Donepezil Hydrochloride (DONEPEZIL HCL) 5 Mg Tab, 1 TAB PO DAILY for COGNITIVE IMPAIRMENT, #30 TAB 5 Refills 10/21/21 Furosemide (Lasix) 40 Mg Tab, 40 MG PO DAILY for EDEMA, TAB 10/21/21 Current Medications Current Medications Medications (Trade) Dose Ordered Sig/Jorje Route PRN Reason Start Time Stop Time Status Last Admin Hydralazine HCl (Apresoline Injection) 10 mg Q6HPRN PRN IV SBP>160 02/03/25 21:15 02/03/25 22:48 DC Ondansetron HCl (Zofran) 4 mg Q6HP PRN IV NAUSEA / VOMITING 02/03/25 21:15 Doxycycline Hyclate 100 ml @ 50 mls/hr BID IV 02/04/25 10:00 Aspirin 81 mg DAILY PO 02/04/25 10:00 Acetaminophen (Tylenol Tablet) 650 mg Q6HPRN PRN PO PAIN SCALE 1-3 OR TEMP>100.4 02/03/25 21:15 Pantoprazole Sodium (Protonix) 40 mg DAILY IV 02/04/25 10:00 Acetaminophen/ Hydrocodone Bitart ([place] 5/325MG Tab) 1 tab Q6HPRN PRN PO PAIN SCALE 1 THRU 6 02/03/25 21:15 Hold Nitroglycerin (Ntrostat Sublingual) 0.4 mg Q5MINP PRN SL FOR CHEST PAIN 02/03/25 22:45 Review of Systems Patient seen and examined with the bedside Saturating more than 95% on room air Patient denied any chest pain, shortness of breath while at rest, nausea or vomiting Vital Signs Vital Signs Date Time Temp Pulse Resp B/P (MAP) Pulse Ox O2 Delivery O2 Flow Rate FiO2 02/04/25 08:39 97.0 59 16 148/59 (88) 99 97.0 02/04/25 02:46 Nasal Cannula* 2 28 Physical Exam Skin - Patients skin is warm and dry. HEENT - normocephalic, atraumatic, moist mucous membranes, no scleral icterus, no conjunctival pallor. Neck - full ROM, no LAD, no JVD Pulmonary - B/L clear breath sounds without any wheezing or rales cardiovascular - regular S1,S2 heard. peripheral pulses normal radial 2+, pedal 2+. No extremity edema GI - soft, nontender abdomen. no hepatospleenomegaly. Bowel sounds normoactive Neurological - Patient is A/O X 2 . Preserved strength in the bilateral upper and lower extremities no facial droop, normal speech, no tremor, no sensory deficiets. Labs/Diagnostic Data Labs Test 02/04/25 09:02 02/04/25 00:05 02/03/25 21:59 02/03/25 20:30 Range/Units Troponin I High Sensitivity 57 *H </=34 ng/L Influenza Type A Antigen Negative Negative Influenza Type B Antigen Negative Negative SARS-CoV-2 Antigen (Rapid) Negative NEGATIVE Thyroid Stimulating Hormone (TSH) 0.96 0.55-4.78 uIU/mL Test 02/03/25 17:35 02/03/25 17:32 Range/Units White Blood Count 6.1 4.4-10.8 10^3/uL Red Blood Count 4.12 4.0-5.20 10^6/uL Hemoglobin 12.6 12.2-16.2 g/dL Hematocrit 39.2 36.0-46.0 % Mean Corpuscular Volume 95.2 80.0-100.0 fL Mean Corpuscular Hemoglobin 30.7 28.0-32.0 pg Mean Corpuscular Hemoglobin Concent 32.3 32.0-36.0 g/dL Red Cell Distribution Width 14.8 H 11.8-14.3 % Platelet Count 143 140-450 10^3/uL Mean Platelet Volume 7.8 6.9-10.8 fL Neutrophils (%) (Auto) 78.3 37.0-80.0 % Lymphocytes (%) (Auto) 16.2 10.0-50.0 % Monocytes (%) (Auto) 4.6 0.0-12.0 % Eosinophils (%) (Auto) 0.6 0.0-7.0 % Basophils (%) (Auto) 0.3 0.0-2.0 % Neutrophils # (Auto) 4.8 1.6-8.6 10 ^3/uL Lymphocytes # (Auto) 1.0 0.4-5.4 10 ^3/uL Monocytes # (Auto) 0.3 0-1.3 10 ^3/uL Eosinophils # (Auto) 0 0-0.8 10 ^3/uL Basophils # (Auto) 0 0-0.2 10 ^3/uL Nucleated Red Blood Cells 0.0 % Sodium Level 138 136-145 mmol/L Potassium Level 5.2 H 3.5-5.1 mmol/L Chloride Level 105 98-107 mmol/L Carbon Dioxide Level 28 20-31 mmol/L Anion Gap 5 5-15 Blood Urea Nitrogen 36 H 9-23 mg/dL Creatinine 1.78 H 0.550-1.02 mg/dL Glomerular Filtration Rate Calc 29 >90 mL/min BUN/Creatinine Ratio 20.2 H 10.0-20.0 Serum Glucose 132 H 74-106 mg/dL Lactic Acid Level 0.9 0.4-2.0 mmol/L Calcium Level 9.9 8.7-10.4 mg/dL Total Bilirubin 0.3 0.2-1.0 mg/dL Aspartate Amino Transferase (AST) 41 H 13-40 U/L Alanine Aminotransferase (ALT) 11 7-40 U/L Alkaline Phosphatase 80 46-116 U/L Total Protein 6.8 5.7-8.2 g/dL Albumin 4.0 3.2-4.8 g/dL Urine Color Yellow Yellow Urine Clarity Clear Clear Urine pH 5.5 5.0-9.0 Urine Specific [place] 1.018 1.001-1.035 Urine Protein 2+ H Negative Urine Ketones Negative Negative Urine Blood Negative Negative /uL Urine Nitrite Negative Negative Urine Bilirubin Negative Negative Urine Urobilinogen Normal Negative mg/dL Urine Leukocyte Esterase Negative Negative /uL Urine RBC <1 0 - 4 /hpf Urine Microscopic WBC 1 0-5 /HPF Urine Squamous Epithelial Cells Few <5 /hpf Urine Amorphous Crystals Few None Seen /hpf Urine Bacteria None seen None Seen /hpf Urine Hyaline Casts Few 0 - 2 /lpf Urine Glucose 4+ H Normal mg/dL Assessment NSTEMI likely type 2 dehydration likely from diarrhoea H/O coronary artery disease s/p CABG S/p aortic valve replacement TAVR S/p pacemaker Heart failure with reduced ejection fraction, no exacerbation h/o hypothyroidism, dyslipidemia MERA on CKD likely prerenal Plan/Recommendation - 12 lead ECG showed sinus rhythm with no acute ST or T-wave changes - troponins flat trending - since the patient was having diarrhea, encouraged holding intake and recommend gentle IV hydration given the patient's history of heart failure with reduced ejection fraction - resumed on Entresto and Plavix - resume Farxiga as tolerated no further inpatient cardiology workup required. Goals of care discussed with the patient and the daughter at bedside. Plan discussed with Dr. Syed Plan discussed with: Patient, Daughter, Other (RN) NYHA Physical activity limitations: Class1(None)absent sob, Date of Service: Feb 04, 2025 Billing Provider: ROSA MARIA SYED Sr., MD Cardiology Common Codes: 00051-[id number] INP/OBS CARE (High) SANDY ADORNO RESIDENT Feb 04, 2025 10:06
[2025-02-04] MEDS: DOXYCYCLINE 100MG/100ML 100 ML IV SCH (10:24)
[2025-02-04] MEDS: PANTOPRAZOLE 40 MG/10 ML VIAL INJ IV SCH (10:25)
[2025-02-04 15:53] LABS: Hematocrit 38.3 % (36.0-46.0); Hemoglobin 12.3 g/dL (12.2-16.2); Mean Corpuscular Hemoglobin 30.7 pg (28.0-32.0); Mean Corpuscular Volume 95.5 fL (80.0-100.0); Nucleated Red Blood Cells % 0.1 %
[2025-02-04 16:01] LABS: Potassium 4.3 mmol/L (3.5-5.1); Sodium 143 mmol/L (136-145)
[2025-02-04 16:02] LABS: Anion Gap 12 (5-15); Calcium 9.9 mg/dL (8.7-10.4); Carbon Dioxide 23 mmol/L (20-31)
[2025-02-04 16:07] LABS: BUN/Creatinine Ratio 19.3 (10.0-20.0); Glucose 75 mg/dL (74-106); Magnesium 2.2 mg/dL (1.6-2.6)
[2025-02-04 16:08] LABS: Blood Urea Nitrogen 33 mg/dL (9-23); Chloride 108 mmol/L (98-107)
[2025-02-04] MEDS: SODIUM CHLORIDE 0.9% 500 ML IV ONE (17:15)
[2025-02-04] MEDS ORDERED: ALPRAZolam 0.25 MG TAB PO PRN (18:30)
[2025-02-04] MEDS: SACUBITRIL-VALSARTAN 24mg/26mg TAB PO SCH (21:38)
--- NOTE | 2025-02-04 23:54 | DVHINCON2 ---
Date Seen: Feb 04, 2025 Referring Physician MATTEO Seay Reason for Consultation Elevated troponin History of Present Illness This is a 79-year-old female with a PMH of HFrEF ( Echo from 07/2024 LVEF 30%), dementia, coronary artery disease (status post CABG in 2011), aortic stenosis (status post TAVR in 2022 and subsequently patient in 2023), status post pacemaker (leadless single-chamber ventricular pacing, for backup, placed on 30 August 2024), hypothyroidism, hypertension, diet-controlled diabetes mellitus who presents to the ED with a complaint of ALOC onset yesterday. Patient reported that her dementia got worse and she was not feeling well, Per ED HPI notes, daughter noticed patient has been altered since yesterday morning with abnormal behavior. For the past 3 days patient has been experiencing nausea, vomiting, diarrhea, was seen at urgent care 2 days ago had negative cardiac workup. Patient reported of chest pain in the upper substernal area, no worsening on exertion, comes on at rest and she has had this pain for a while on and off. Denies dizziness, headache, fever, chills. No other symptoms or modifying factors present at this time.TROP 58 > 57 > 66. \\. Patient was admitted to the hospital. I am asked to consult on this patient. Past Medical History As per HPI Past Surgical History As per HPI Family History: Alcoholism G8 FATHER Cancer G8 SISTER Cardiovascular disease G8 MOTHER G8 FATHER Family history: Cardiovascular disease Hypertension G8 FATHER Allergies: Coded Allergies: Morphine (Verified Allergy, Unknown, 08/11/24) Hydralazine (Verified Adverse Reaction, Severe, respiratory distress, 03/23/24) Home Meds Active Scripts Dapagliflozin Propanediol (Farxiga) 10 Mg Tab, 10 MG PO DAILY, #60 TAB Prov:LESVIA LOPEZ MD 08/15/24 Sacubitril-Valsartan (Entresto 24-26 mg) 1 Tab Tab, 1 TAB PO BID for 60 Days, #120 TAB Prov:LESVIA LOPEZ MD 08/15/24 Atorvastatin Calcium (ATORVASTATIN CALCIUM) 20 Mg Tab, 40 MG PO HS for 60 Days, #120 TAB Prov:LESVIA LOPEZ MD 08/15/24 Reported Medications Famotidine (Famotidine) 20 Mg Tab, 20 MG PO DAILY for 30 Days, MG 02/04/25 Pantoprazole Sodium Sesquihydr (Pantoprazole Sodium) 40 Mg Tab, 40 MG PO, TAB 02/04/25 Melatonin (KP MELATONIN) 3 Mg Tab, 3 MG PO, TAB 02/04/25 Levodopa W/Carbidopa (SINEMET 25/100MG) 1 Tab Tb, 1 TAB PO TID, TAB 02/04/25 Donepezil Hydrochloride (DONEPEZIL HCL) 10 Mg Tab, 10 MG PO QHSP for 30 Days, MG 02/04/25 Furosemide (Furosemide) 20 Mg Tab, 20 MG PO DAILY for 30 Days, MG 02/04/25 Dicyclomine Hcl (Dicyclomine Hcl) 10 Mg Cap, 10 MG PO TIDWMEALS, MG 03/22/24 Cilostazol (Cilostazol) 100 Mg Tab, 100 MG PO DAILY, MG 03/22/24 [place]-3 Fatty Acids (Fish Oil) 1,000 Mg Cap, 1000 MG PO 03/16/22 Polyethylene Glycol (MIRALAX 17GM PWD) 17 Gm Pw, 17 GRAMS PO DAILY 03/16/22 Multiple Vitamins W/ Minerals (Centrum Adults) 1 Tab Tab, 1 TAB PO DAILY for SUPPLEMENT, TAB 10/21/21 Gabapentin (Gabapentin) 300 Mg Cap, 1 CAP PO HS for NEUROPATHY, #90 CAP 5 Refills 10/21/21 Levothyroxine Sodium (Levothyroxine Sodium) 75 Mcg Tab, 1 TAB PO DAILY for LOW THYROID, #30 TAB 5 Refills 10/21/21 Niacinamide (NIACIN) 500 Mg Tab, 500 MG PO DAILY for SUPPLEMENT, TAB 10/21/21 Clopidogrel Bisulfate (Plavix) 75 Mg Tab, 1 TAB PO DAILY for UNSTABLE ANGINA, #90 TAB 1 Refill 10/21/21 Aspirin (Aspir-81) 81 Mg Tab, 1 TAB PO DAILY, #30 TAB 5 Refills 07/13/15 Latanoprost (LATANOPROST) 0.005 % Billie, 1 DROP EACHEYE QPM for glaucoma, #7.5 ML 3 Refills 06/28/15 Discontinued Reported Medications Glucosamine Sulfate (Glucosamine) 1,000 Mg Cap, 1000 MG PO DAILY 03/16/22 Donepezil Hydrochloride (DONEPEZIL HCL) 5 Mg Tab, 1 TAB PO DAILY for COGNITIVE I MPAIRMENT, #30 TAB 5 Refills 10/21/21 Furosemide (Lasix) 40 Mg Tab, 40 MG PO DAILY for EDEMA, TAB 10/21/21 Current Medications Current Medications Medications (Trade) Dose Ordered Sig/Jorje Route PRN Reason Start Time Stop Time Status Last Admin Hydralazine HCl (Apresoline Injection) 10 mg Q6HPRN PRN IV SBP>160 02/03/25 21:15 02/03/25 22:48 DC Ondansetron HCl (Zofran) 4 mg Q6HP PRN IV NAUSEA / VOMITING 02/03/25 21:15 Doxycycline Hyclate 100 ml @ 50 mls/hr BID IV 02/04/25 10:00 02/04/25 10:24 Aspirin 81 mg DAILY PO 02/04/25 10:00 02/04/25 15:45 DC 02/04/25 10:26 Acetaminophen (Tylenol Tablet) 650 mg Q6HPRN PRN PO PAIN SCALE 1-3 OR TEMP>100.4 02/03/25 21:15 Pantoprazole Sodium (Protonix) 40 mg DAILY IV 02/04/25 10:00 02/04/25 10:25 Acetaminophen/ Hydrocodone Bitart (Theodore 5/325MG Tab) 1 tab Q6HPRN PRN PO PAIN SCALE 1 THRU 6 02/03/25 21:15 Hold Nitroglycerin (Ntrostat Sublingual) 0.4 mg Q5MINP PRN SL FOR CHEST PAIN 02/03/25 22:45 Clopidogrel Bisulfate (Plavix) 75 mg DAILY PO 02/05/25 10:00 Sacubitril/ Valsartan (Entresto 24-26 Mg tab) 1 tab BID PO 02/04/25 22:00 Review of Systems Patient seen and examined with the bedside Saturating more than 95% on room air Patient denied any chest pain, shortness of breath while at rest, nausea or vomiting Vital Signs Vital Signs Date Time Temp Pulse Resp B/P (MAP) Pulse Ox O2 Delivery O2 Flow Rate FiO2 02/04/25 17:04 97.3 50 18 126/54 (78) 92 97.3 02/04/25 08:05 Nasal Cannula* 2 28 Physical Exam GENERAL: Alert and oriented x 2. No acute distress. EYES: PERRL, EOMI. Anicteric. HENT: Moist mucous membranes. LUNGS: Clear to auscultation bilaterally. CARDIOVASCULAR: Regular rate and rhythm. ABDOMEN: Soft, nontender and nondistended. EXTREMITIES: No edema. NEUROLOGIC: No focal neurological deficits. SKIN: Warm, dry. Labs/Diagnostic Data Labs Test 02/04/25 10:18 02/04/25 06:07 02/04/25 00:05 02/03/25 21:59 Range/Units Troponin I High Sensitivity 66 *H </=34 ng/L White Blood Count 5.7 4.4-10.8 10^3/uL Red Blood Count 4.01 4.0-5.20 10^6/uL Hemoglobin 12.3 12.2-16.2 g/dL Hematocrit 38.3 36.0-46.0 % Mean Corpuscular Volume 95.5 80.0-100.0 fL Mean Corpuscular Hemoglobin 30.7 28.0-32.0 pg Mean Corpuscular Hemoglobin Concent 32.1 32.0-36.0 g/dL Red Cell Distribution Width 14.3 11.8-14.3 % Platelet Count 135 L 140-450 10^3/uL Mean Platelet Volume 8.6 6.9-10.8 fL Neutrophils (%) (Auto) 68.2 37.0-80.0 % Lymphocytes (%) (Auto) 21.0 10.0-50.0 % Monocytes (%) (Auto) 9.8 0.0-12.0 % Eosinophils (%) (Auto) 0.5 0.0-7.0 % Basophils (%) (Auto) 0.5 0.0-2.0 % Neutrophils # (Auto) 3.9 1.6-8.6 10 ^3/uL Lymphocytes # (Auto) 1.2 0.4-5.4 10 ^3/uL Monocytes # (Auto) 0.6 0-1.3 10 ^3/uL Eosinophils # (Auto) 0 0-0.8 10 ^3/uL Basophils # (Auto) 0 0-0.2 10 ^3/uL Nucleated Red Blood Cells 0.1 % Sodium Level 143 # 136-145 mmol/L Potassium Level 4.3 3.5-5.1 mmol/L Chloride Level 108 H 98-107 mmol/L Carbon Dioxide Level 23 20-31 mmol/L Anion Gap 12 5-15 Blood Urea Nitrogen 33 H 9-23 mg/dL Creatinine 1.71 H 0.550-1.02 mg/dL Glomerular Filtration Rate Calc 30 >90 mL/min BUN/Creatinine Ratio 19.3 10.0-20.0 Serum Glucose 75 74-106 mg/dL Calcium Level 9.9 8.7-10.4 mg/dL Magnesium Level 2.2 1.6-2.6 mg/dL Influenza Type A Antigen Negative Negative Influenza Type B Antigen Negative Negative SARS-CoV-2 Antigen (Rapid) Negative NEGATIVE Test 02/03/25 20:30 02/03/25 17:35 02/03/25 17:32 Range/Units Thyroid Stimulating Hormone (TSH) 0.96 0.55-4.78 uIU/mL Lactic Acid Level 0.9 0.4-2.0 mmol/L Total Bilirubin 0.3 0.2-1.0 mg/dL Aspartate Amino Transferase (AST) 41 H 13-40 U/L Alanine Aminotransferase (ALT) 11 7-40 U/L Alkaline Phosphatase 80 46-116 U/L Total Protein 6.8 5.7-8.2 g/dL Albumin 4.0 3.2-4.8 g/dL Urine Color Yellow Yellow Urine Clarity Clear Clear Urine pH 5.5 5.0-9.0 Urine Specific [place] 1.018 1.001-1.035 Urine Protein 2+ H Negative Urine Ketones Negative Negative Urine Blood Negative Negative /uL Urine Nitrite Negative Negative Urine Bilirubin Negative Negative Urine Urobilinogen Normal Negative mg/dL Urine Leukocyte Esterase Negative Negative /uL Urine RBC <1 0 - 4 /hpf Urine Microscopic WBC 1 0-5 /HPF Urine Squamous Epithelial Cells Few <5 /hpf Urine Amorphous Crystals Few None Seen /hpf Urine Bacteria None seen None Seen /hpf Urine Hyaline Casts Few 0 - 2 /lpf Urine Glucose 4+ H Normal mg/dL Assessment NSTEMI likely type 2. Dehydration likely from diarrhea. H/O coronary artery disease s/p CABG. S/p aortic valve replacement TAVR. S/p pacemaker. Heart failure with reduced ejection fraction, no exacerbation. H/O hypothyroidism, dyslipidemia. MERA on CKD likely prerenal. Plan/Recommendation I agree with your ongoing assessment and care of plan. Patient has been seen by Nash Jaime Resident on my behalf, we have discussed the plan with the patient 12 lead ECG showed sinus rhythm with no acute ST or T-wave changes. Troponins flat trending. Since the patient was having diarrhea, encouraged holding intake and recommend gentle IV hydration given the patient's history of heart failure with reduced ejection fraction. Resumed on Entresto and Plavix. Resume Farxiga as tolerated. Additional plan as per the hospital course. Plan discussed with: Patient NYHA Physical activity limitations: Class1(None)absent sob, Date of Service: Feb 04, 2025 Billing Provider: HOSSEIN GARRETT MD Cardiology Common Codes: 81514-BPGSGNB INP/OBS CARE (High) Cardiology Consultation Codes: 75332-GKFQEICXG CONSULT <45MIN HOSSEIN GARRETT MD Feb 04, 2025 18:05
[2025-02-05 01:00] VITALS: BP 160/63; PULSE 73; RESP 18; TEMP 97.6; O2SAT 95
[2025-02-05 05:00] VITALS: BP 199/109; PULSE 64; RESP 17; TEMP 97.4; O2SAT 94
[2025-02-05] MEDS ORDERED: CLOPIDOGREL BISULFATE 75 MG TAB PO SCH (10:00)
--- NOTE | 2025-02-05 13:33 | DVHDS2 ---
Discharge Summary Date of Admission Feb 03, 2025 at 22:44 Date of Discharge: Feb 05, 2025 Labs/Diagnostic Data: Laboratory Results Test 02/04/25 10:18 02/04/25 06:07 02/04/25 00:05 02/03/25 21:59 Creatine Kinase 68 U/L (34-145) Troponin I High Sensitivity 66 ng/L (</=34) White Blood Count 5.7 10^3/uL (4.4-10.8) Red Blood Count 4.01 10^6/uL (4.0-5.20) Hemoglobin 12.3 g/dL (12.2-16.2) Hematocrit 38.3 % (36.0-46.0) Mean Corpuscular Volume 95.5 fL (80.0-100.0) Mean Corpuscular Hemoglobin 30.7 pg (28.0-32.0) Mean Corpuscular Hemoglobin Concent 32.1 g/dL (32.0-36.0) Red Cell Distribution Width 14.3 % (11.8-14.3) Platelet Count 135 10^3/uL (140-450) Mean Platelet Volume 8.6 fL (6.9-10.8) Neutrophils (%) (Auto) 68.2 % (37.0-80.0) Lymphocytes (%) (Auto) 21.0 % (10.0-50.0) Monocytes (%) (Auto) 9.8 % (0.0-12.0) Eosinophils (%) (Auto) 0.5 % (0.0-7.0) Basophils (%) (Auto) 0.5 % (0.0-2.0) Neutrophils # (Auto) 3.9 10 ^3/uL (1.6-8.6) Lymphocytes # (Auto) 1.2 10 ^3/uL (0.4-5.4) Monocytes # (Auto) 0.6 10 ^3/uL (0-1.3) Eosinophils # (Auto) 0 10 ^3/uL (0-0.8) Basophils # (Auto) 0 10 ^3/uL (0-0.2) Nucleated Red Blood Cells 0.1 % Sodium Level 143 mmol/L (136-145) Potassium Level 4.3 mmol/L (3.5-5.1) Chloride Level 108 mmol/L (98-107) Carbon Dioxide Level 23 mmol/L (20-31) Anion Gap 12 (5-15) Blood Urea Nitrogen 33 mg/dL (9-23) Creatinine 1.71 mg/dL (0.550-1.02) Glomerular Filtration Rate Calc 30 mL/min (>90) BUN/Creatinine Ratio 19.3 (10.0-20.0) Serum Glucose 75 mg/dL (74-106) Calcium Level 9.9 mg/dL (8.7-10.4) Magnesium Level 2.2 mg/dL (1.6-2.6) Influenza Type A Antigen Negative (Negative) Influenza Type B Antigen Negative (Negative) SARS-CoV-2 Antigen (Rapid) Negative (NEGATIVE) Test 02/03/25 20:30 02/03/25 17:35 02/03/25 17:32 Thyroid Stimulating Hormone (TSH) 0.96 uIU/mL (0.55-4.78) Lactic Acid Level 0.9 mmol/L (0.4-2.0) Total Bilirubin 0.3 mg/dL (0.2-1.0) Aspartate Amino Transferase (AST) 41 U/L (13-40) Alanine Aminotransferase (ALT) 11 U/L (7-40) Alkaline Phosphatase 80 U/L (46-116) Total Protein 6.8 g/dL (5.7-8.2) Albumin 4.0 g/dL (3.2-4.8) Urine Color Yellow (Yellow) Urine Clarity Clear (Clear) Urine pH 5.5 (5.0-9.0) Urine Specific [place] 1.018 (1.001-1.035) Urine Protein 2+ (Negative) Urine Ketones Negative (Negative) Urine Blood Negative /uL (Negative) Urine Nitrite Negative (Negative) Urine Bilirubin Negative (Negative) Urine Urobilinogen Normal mg/dL (Negative) Urine Leukocyte Esterase Negative /uL (Negative) Urine RBC <1 /hpf (0 - 4) Urine Microscopic WBC 1 /HPF (0-5) Urine Squamous Epithelial Cells Few /hpf (<5) Urine Amorphous Crystals Few /hpf (None Seen) Urine Bacteria None seen /hpf (None Seen) Urine Hyaline Casts Few /lpf (0 - 2) Urine Glucose 4+ mg/dL (Normal) Other Laboratory Tests 02/04/25 06:07 Brief Hx & Hospital Course: Mrs. Mary Coley 79 year old female with a history of CAD, IN, CABG, Cardiomyopathy EF 30%, E [employer]{D, Dementia, Alzeihmer's disease, Pacemaker, Hypothyroid, CRF who presentswith a chief complaint of ALOC onset yesterday. Per ED HPI notes, daughter noticed patient has been altered since yesterday morning with abnormal behavior. For the past 3 days patient has been experiencing nausea, vomiting, diarrhea, was seen at urgent care 2 days ago had negative cardiac workup. Patient had an IN July 2024, symptoms were nausea/vomiting. Patient reports chest pain, dyspnea, sore throat. Denies dizziness, headache, fever, chills. No other symptoms or modifying factors present at this time. Patient found to have mildly elevated troponin levels. Patient admitted for further evaluation. She is admitted and evaluated by cmm inspector. Patient felt dehydrated from her diarrhea. While in the hospital received gentle IV hydration. Her diarrhea resolvedt had any loose bowel movements in the hospital. Patient's blood pressure was elevated for which she received p.r.n. blood pressure medications. I have evaluated the patient yesterday afternoon in person and discussed with the daughter at bedside regarding care plan. Apparently overnight patient got agitated due to her dementia and pull her IV out. Given her agitation patient blood pressure noted to be elevated. She received clonidine and subsequent blood pressure this morning came back to normal range per nurse. Patient apparently did not want to stay in the hospital any longer and decided to leave against medical advice. Per nurse patient is alert awake oriented to place and person situation and felt though she has dementia she is able to make her own decisions to leave AMA. I was notified via text by the nurse regarding patient leaving AMA. I have talked to the daughter this afternoon over the phone regarding patient leaving AMA. Discussed with the her given history of dementia with felt elevated blood pressure is due to agitation. Daughter is not happy and upset that she was not notified regarding patient's agitation and elevated blood pressure overnight. She is also not happy that her mom is leaving against medical advice. Daughter is advised to have blood pressure checked at home to keep it below 140/80 and to follow up with the primary care physician in one week. Otherwise I have told the daughter to resume all other home medications including her dementia medication. I have also told the daughter that if patient has any new, recurrent or worsening symptoms to bring her back to the ER for further evaluation and possible admission. I have also arranged home health for safety evaluation at home and checking blood pressures and coordinating care outpatient with the primary care physician. Consults/Reason for consult CONSULTATION REPORT . ................................................................................ ............................................................................... Date Seen: Feb 04, 2025 Referring Physician MATTEO Seay Reason for Consultation Elevated troponin History of Present Illness This is a 79-year-old female with a PMH of HFrEF ( Echo from 07/2024 LVEF 30%), dementia, coronary artery disease (status post CABG in 2011), aortic stenosis (status post TAVR in 2022 and subsequently patient in 2023), status post pacemaker (leadless single-chamber ventricular pacing, for backup, placed on 30 August 2024), hypothyroidism, hypertension, diet-controlled diabetes mellitus who presents to the ED with a complaint of ALOC onset yesterday. Patient reported that her dementia got worse and she was not feeling well, Per ED HPI notes, daughter noticed patient has been altered since yesterday morning with abnormal behavior. For the past 3 days patient has been experiencing nausea, vomiting, diarrhea, was seen at urgent care 2 days ago had negative cardiac workup. Patient reported of chest pain in the upper substernal area, no worsening on exertion, comes on at rest and she has had this pain for a while on and off. Denies dizziness, headache, fever, chills. No other symptoms or modifying factors present at this time.TROP 58 > 57 > 66. \\\\. Patient was admitted to the hospital. I am asked to consult on this patient. Assessment NSTEMI likely type 2. Dehydration likely from diarrhea. H/O coronary artery disease s/p CABG. S/p aortic valve replacement TAVR. S/p pacemaker. Heart failure with reduced ejection fraction, no exacerbation. H/O hypothyroidism, dyslipidemia. MERA on CKD likely prerenal. Plan/Recommendation I agree with your ongoing assessment and care of plan. Patient has been seen by Nash Jaime Resident on my behalf, we have discussed the plan with the patient 12 lead ECG showed sinus rhythm with no acute ST or T-wave changes. Troponins flat trending. Since the patient was having diarrhea, encouraged holding intake and recommend gentle IV hydration given the patient's history of heart failure with reduced ejection fraction. Resumed on Entresto and Plavix. Resume Farxiga as tolerated. Additional plan as per the hospital course. Plan discussed with: Patient NYHA 2 Physical activity limitations: Class1(None)absent sob, Date of Service: Feb 04, 2025 Billing Provider: HOSSEIN GARRETT MD Cardiology Common Codes: 93105-[id number] INP/OBS CARE (High) Cardiology Consultation Codes: [id number] CONSULT <45MIN HOSSEIN GARRETT MD Feb 04, 2025 18:05 Condition at Discharge: Stable Final Diagnosis/Problems List Viral gastroenteritis with a diarrhea, dehydration, dementia, malignant hypertension, demand ischemia with a NSTEMI type 2 from high blood pressure, CKD III Discharge Disposition: AMA Discharge Instruct/Medications Scheduled Aspirin (Aspir-81), 1 TAB PO DAILY, (Reported) Atorvastatin Calcium (Atorvastatin Calcium), 40 MG PO HS Cilostazol (Cilostazol), 100 MG PO DAILY, (Reported) Clopidogrel Bisulfate (Plavix), 1 TAB PO DAILY, (Reported) Dapagliflozin Propanediol (Farxiga), 10 MG PO DAILY Dicyclomine Hcl (Dicyclomine Hcl), 10 MG PO TIDWMEALS, (Reported) Donepezil Hydrochloride (Donepezil Hcl), 10 MG PO QHSP, (Reported) Famotidine (Famotidine), 20 MG PO DAILY, (Reported) Furosemide (Furosemide), 20 MG PO DAILY, (Reported) Gabapentin (Gabapentin), 1 CAP PO HS, (Reported) Latanoprost (Latanoprost), 1 DROP EACHEYE QPM, (Reported) Levodopa W/Carbidopa (Sinemet 25/100MG), 1 TAB PO TID, (Reported) Levothyroxine Sodium (Levothyroxine Sodium), 1 TAB PO DAILY, (Reported) Multiple Vitamins W/ Minerals (Centrum Adults), 1 TAB PO DAILY, (Reported) Niacinamide (Niacin), 500 MG PO DAILY, (Reported) Polyethylene Glycol (Miralax 17GM Pwd), 17 GRAMS PO DAILY, (Reported) Sacubitril-Valsartan (Entresto 24-26 mg), 1 TAB PO BID Miscellaneous Medications Melatonin (Kp Melatonin), 3 MG PO, (Reported) [place]-3 Fatty Acids (Fish Oil), 1,000 MG PO, (Reported) Pantoprazole Sodium Sesquihydr (Pantoprazole Sodium), 40 MG PO, (Reported) Discontinued Medications Donepezil Hydrochloride (Donepezil Hcl), 1 TAB PO DAILY, (Reported) Furosemide (Lasix), 40 MG PO DAILY, (Reported) Glucosamine Sulfate (Glucosamine), 1,000 MG PO DAILY, (Reported) Discharge Statement: "Patient was advised to return to the ER or call 911 if any headaches, dizziness, shortness of breath, chest pain, abdominal pain, bleeding, fevers, or worsening of medical condition. Patient was counseled about treatment plan, medications, possible side effects, patientverbalized understanding. All questions were answered to the best of my ability. This discharge took greater then 30 minutes in planning, reviewing documentation, counseling the patient, and discussing with other team members." ASSESSMENT ASSESSMENT Assessment JENSEN BAEZ MD Feb 05, 2025 13:33
--- NOTE | 2025-02-05 22:26 | DVHPN2 ---
Progress Note - Dictate Date Seen: Feb 05, 2025 Medical Necessity Reason Pt with a Central, PICC or Fol: No Subjective Patient was seen and evaluated in follow up. Patient has no new complaints at this time. Patient denies any cardiac symptoms. Patient is cardiac stable for discharge. Telemetry reviewed. vital signs Vital Sign Date Time Temp Pulse Resp B/P (MAP) Pulse Ox O2 Delivery O2 Flow Rate FiO2 02/05/25 05:11 199/109 02/05/25 05:00 97.4 64 17 94 97.4 02/04/25 20:01 Nasal Cannula* 2 28 Total Intake and Output 02/04/25 02/04/25 02/05/25 15:00 23:00 07:00 Intake Total 100 ml 250 ml 300 ml Balance 100 ml 250 ml 300 ml objective GENERAL: Alert and oriented x 3. No acute distress. EYES: PERRL, EOMI. Anicteric. HENT: Moist mucous membranes. LUNGS: Clear to auscultation bilaterally. CARDIOVASCULAR: Regular rate and rhythm. ABDOMEN: Soft, nontender and nondistended. EXTREMITIES: No edema. NEUROLOGIC: No focal neurological deficits. SKIN: Warm, dry. laboratory and microbiology Laboratory Tests 02/04/25 06:07 Test 02/04/25 06:07 Range/Units Serum Glucose 75 74-106 mg/dL Problem List NSTEMI likely type 2. Dehydration likely from diarrhea. H/O coronary artery disease s/p CABG. S/p aortic valve replacement TAVR. S/p pacemaker. Heart failure with reduced ejection fraction, no exacerbation. H/O hypothyroidism, dyslipidemia. MERA on CKD likely prerenal. Assessment/Plan Continued all current supportive medical care. IVFs. Resumed on Entresto and Plavix. Resume Farxiga as tolerated. Additional plan as per the hospital course. Plan discussed with: Patient HOSSEIN GARRETT MD Feb 05, 2025 22:26
--- NOTE | 2025-02-06 08:35 | ECG ---
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
== END 2025-02-05 07:56 | disposition left against medical advice (07) | DRG 70 ==
LOC: EDBD 16:47 → ER 16:47 → OVERFLOW 22:44 → TELE-WESTW 02-04 03:19
PROVIDERS: ADMIT Internal Medicine; ATTEND Internal Medicine
DX: G93.41 Metabolic encephalopathy (principal); I21.A1 Myocardial infarction type 2; J18.9 Pneumonia, unspecified organism; I42.9 Cardiomyopathy, unspecified; I50.22 Chronic systolic (congestive) heart failure; I13.0 Hypertensive heart and chronic kidney disease with heart failure and stage 1 through stage 4 chronic kidney disease, or unspecified chronic kidney disease; N17.9 Acute kidney failure, unspecified; J44.0 Chronic obstructive pulmonary disease with (acute) lower respiratory infection; N18.30 Chronic kidney disease, stage 3 unspecified; F02.80 Dementia in other diseases classified elsewhere, unspecified severity, without behavioral disturbance, psychotic disturbance, mood disturbance, and anxiety; F10.20 Alcohol dependence, uncomplicated; E03.9 Hypothyroidism, unspecified; E11.22 Type 2 diabetes mellitus with diabetic chronic kidney disease; Z95.2 Presence of prosthetic heart valve; A08.4 Viral intestinal infection, unspecified; E86.0 Dehydration; Z20.822 Contact with and (suspected) exposure to COVID-19; Z53.29 Procedure and treatment not carried out because of patient's decision for other reasons; E78.5 Hyperlipidemia, unspecified; I25.10 Atherosclerotic heart disease of native coronary artery without angina pectoris; I25.2 Old myocardial infarction; Z82.49 Family history of ischemic heart disease and other diseases of the circulatory system; Z87.891 Personal history of nicotine dependence; Z90.49 Acquired absence of other specified parts of digestive tract; Z95.0 Presence of cardiac pacemaker; Z95.1 Presence of aortocoronary bypass graft; Z88.5 Allergy status to narcotic agent; Z88.8 Allergy status to other drugs, medicaments and biological substances; Z79.899 Other long term (current) drug therapy
CPT/HCPCS: 36415; 70450; 71045; 80048; 80053; 81001; 82550; 83605; 83735; 84443; 84484; 85025; 87426; 87804; 93005; 96365; 96375; 97163; G0378; J2405; J2470